=== PATIENT | male | born 1930 | race Caucasian/White ===

== ENCOUNTER 2016-05-17 09:01 | Observation (INO) | payer MEDICARE, OTHER ==
[~2016-05-17] VITALS: Ht 170.2 cm; Wt 94.8 kg
[~2016-05-17 09:01] MED LIST: BICA50TA4 PO; CLOP75TA28 PO; DILT360C30 PO; HYDR25TA4 PO; LEVO500T69 PO; MTF500T PO; MTP50T PO; POTA8CAP9 PO; SIMV40TA4 PO; TAMS0.4C9 PO; VLS80C PO
--- OUTSIDE RECORDS SUMMARY | 2016-05-17 09:09 | XMS REPORT | Continuity of Care Document ---
Author Author [facility] Organization [facility] Address Unknown Phone Unavailable Support Name Relationship Address Phone RADHA MONDRAGON MD Caregiver [phone] [place] [address] RILEY STEWART Next Of Kin [address] [place], [place] [id number] Insurance Providers Payer Name Policy Number Subscriber Name Relationship [employer] [id number] Maile Stewart 18 Self / Same As Patient Comm Crossover Enter Ins Name [id number] Maile Stewart 18 Self / Same As Patient Advance Directives Directive Response Recorded Date/Time Advance Directives Yes 06/05/14 2:43pm Health Care Power of Assistant Shift Supervisor No 06/05/14 2:43pm Organ Donor No 06/05/14 2:43pm Resuscitation Status Full Code 06/05/14 2:43pm Problems No known problems or medical conditions. Medications Medication Dose Route Sig Days/Qty Instructions Order Date Discontinued Date Status Diltiazem HCl (Tiazac) 360 Mg PO DAILY 10/06/13 Active Potassium Chloride 8 Meq PO DAILY 10/06/13 Active Valsartan 160 Mg PO DAILY 10/06/13 Active Simvastatin 20 Mg PO BEDTIME 10/06/13 Active Hydrochlorothiazide 50 Mg PO DAILY 10/06/13 Active Metoprolol Tartrate (Lopressor) 50 Mg PO TWICE A DAY 10/06/13 Active Clopidogrel Bisulfate 75 Mg PO DAILY 10/06/13 Active Metformin HCl (Glucophage) 500 Mg PO TWICE A DAY WITH MEALS 10/06/13 Active Levofloxacin 1 Each PO DAILY 10 Qty 10/06/13 Active Social History Social History Problem Response Recorded Date/Time Alcohol Use Denies Use 10/06/2013 5:07pm Recreational Drug Use No 10/06/2013 5:07pm Hospital Discharge Instructions No hospital discharge instructions. Plan of Care No plan of care. Functional Status No functional status results. Allergies, Adverse Reactions, Alerts Allergen Type Severity Reaction Status Last Updated Codeine Allergy Unknown Active 11/12/05 Immunizations No immunization records. Vital Signs Acute Vital Signs Vital Response Date/Time Height (Feet) 5 feet Height (Inches) 7.00 inches Height (Calculated Centimeters) 170.802429 cm Weight (Pounds) 215 pounds Weight (Calculated Grams) 85311.361 gm Weight (Calculated Kilograms) 97.586591 kilograms Calculated BMI 33.67 Results Laboratory Results Test Name Result Units Flags Reference Collection Date/Time Result Date/ Time Comments White Blood Count 8.7 10^3/uL 4.3-11.0 06/04/2014 10:am 06/04/2014 10 :19am Red Blood Count 4.11 10^6/uL L 4.35-5.85 06/04/2014 10:06/04/2014 10 :19am Hemoglobin 12.2 G/DL L 13.3-17.7 06/04/2014 10:06/04/2014 10:19am Hematocrit 35 % L 40-54 06/04/2014 10:06/04/2014 10:19am Mean Corpuscular Volume 85 FL 80-99 06/04/2014 10:06/04/2014 10: 19am Mean Corpuscular Hemoglobin 30 PG 25-34 06/04/2014 10:06/04/2014 10:19am Mean Corpuscular Hemoglobin Concent 35 G/DL 32-36 06/04/2014 10: 10:19am Red Cell Distribution Width 13.4 % 10.0-14.5 06/04/2014 10:2014 10:19am Platelet Count 224 10^3/uL 130-400 06/04/2014 10:06/04/2014 10: 19am Mean Platelet Volume 9.2 FL 7.4-10.4 06/04/2014 10:06/04/2014 10: 19am Neutrophils (%) (Auto) 62 % 42-75 06/04/2014 10:06/04/2014 10: 19am Lymphocytes (%) (Auto) 25 % 12-44 06/04/2014 10:06/04/2014 10: 19am Monocytes (%) (Auto) 10 % 0-12 06/04/2014 10:06/04/2014 10:19am Eosinophils (%) (Auto) 3 % 0-10 06/04/2014 10:06/04/2014 10:19am Basophils (%) (Auto) 0 % 0-10 06/04/2014 10:06/04/2014 10:19am Neutrophils # (Auto) 5.4 X 10^3 1.8-7.8 06/04/2014 10:06/04/2014 10:19am Lymphocytes # (Auto) 2.2 X 10^3 1.0-4.0 06/04/2014 10:06/04/2014 10:19am Monocytes # (Auto) 0.9 X 10^3 0.0-1.0 06/04/2014 10:06/04/2014 10: 19am Eosinophils # (Auto) 0.2 10^3/uL 0.0-0.3 06/04/2014 10:06/04/2014 10:19am Basophils # (Auto) 0.0 10^3/uL 0.0-0.1 06/04/2014 10:06/04/2014 10 :19am Sodium Level 137 MMOL/L 135-145 06/04/2014 10:06/04/2014 10:47am Potassium Level 4.1 MMOL/L 3.6-5.0 06/04/2014 10:06/04/2014 10: 47am Chloride Level 103 MMOL/L 98-107 06/04/2014 10:06/04/2014 10:47am Carbon Dioxide Level 25 MMOL/L 21-32 06/04/2014 10:1306/04/2014 10: 47am Blood Urea Nitrogen 19 MG/DL H 7-18 06/04/2014 10:06/04/2014 10: 47am Creatinine 0.83 MG/DL 0.60-1.30 06/04/2014 10:06/04/2014 10:47am BUN/Creatinine Ratio 23 06/04/2014 10:06/04/2014 10:47am Estimat Glomerular Filtration Rate > 60 06/04/2014 10:2014 10:47am GFR INTERPRETIVE DATA UNITS FOR ESTIMATED GFR (eGFR): mL/min/1.73 M2 REFERENCE RANGE FOR ESTIMATED GFR (eGFR) eGFR NORMAL eGFR >60 MODERATELY DECREASED eGFR 30-59 SEVERLY DECREASED eGFR 15-29 KIDNEY FAILURE <15 (OR DIALYSIS) Glucose Level 135 MG/DL H 70-105 06/04/2014 10:13am 06/04/2014 10:47am Calcium Level 9.7 MG/DL 8.5-10.1 06/04/2014 10:1306/04/2014 10:47am Total Bilirubin 0.7 MG/DL 0.1-1.0 06/04/2014 10:13am 06/04/2014 10: 47am Alkaline Phosphatase 79 U/L 40-136 06/04/2014 10:13am 06/04/2014 10: 47am Aspartate Amino Transf (AST/SGOT) 13 U/L 5-34 06/04/2014 10:13am 2014 10:47am Alanine Aminotransferase (ALT/SGPT) 13 U/L 0-55 06/04/2014 10:13am 01/2015 10:47am Total Protein 6.9 G/DL 6.4-8.2 06/04/2014 10:13am 06/04/2014 10:47am Albumin 4.3 G/DL 3.2-4.5 06/04/2014 10:13am 06/04/2014 10:47am Procedures No known history of procedures. Encounters Encounter Location Date/Time Registered Clinic [facility] 06/05/14 5:58am Discharged Recurring [facility] 06/04/14 9:59am
[2016-05-17 09:30] LABS: BASOPHILS % (AUTO) 1 % (0-10); EOSINOPHILS # (AUTO) 0.4 10^3/uL (0.0-0.3); EOSINOPHILS % (AUTO) 6 % (0-10); LYMPHOCYTES # (AUTO) 1.4 X 10^3 (1.0-4.0); LYMPHOCYTES % (AUTO) 21 % (12-44); MEAN CORPUSCULAR HEMOGLOBIN 30 PG (25-34); MEAN CORPUSCULAR HGB CONC 35 G/DL (32-36); MEAN CORPUSCULAR VOLUME 84 FL (80-99); MEAN PLATELET VOLUME 9.8 FL (7.4-10.4); MONOCYTES # (AUTO) 0.6 X 10^3 (0.0-1.0); MONOCYTES % (AUTO) 9 % (0-12); NEUTROPHILS # (AUTO) 4.2 X 10^3 (1.8-7.8); NEUTROPHILS % (AUTO) 64 % (42-75); PLATELET COUNT 171 10^3/uL (130-400); RED BLOOD COUNT 4.36 10^6/uL (4.35-5.85); RED CELL DISTRIBUTION WIDTH 13.3 % (10.0-14.5); WHITE BLOOD COUNT 6.6 10^3/uL (4.3-11.0)
--- NOTE | 2016-05-17 09:32 | Diagnostic Imaging Report ---
INDICATION: Left-sided weakness. Portable chest 9:29 AM. There are postop changes from a median sternotomy. There is calcified granuloma in the right midlung. Heart size and pulmonary vascularity are normal. Lungs are clear. There are no effusions or pneumothoraces. IMPRESSION: Postsurgical changes in the chest. There are no acute abnormalities seen. Dictated by: Dictated on workstation # [id number]
--- NOTE | 2016-05-17 09:34 | Diagnostic Imaging Report ---
Indication: Altered mental status CT head without contrast There is decreased density in the periventricular white matter consistent chronic small vessel ischemic change. There are also several old lacunar infarcts. There are no masses or hemorrhages. There are no extra-axial fluid collections. 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 There is no CT evidence for an acute infarct. Dictated by: Dictated on workstation # [id number]
[2016-05-17 09:35] VITALS: BP 138/98
[2016-05-17 09:41] LABS: INR 1.1 (0.8-1.4); PROTHROMBIN TIME PATIENT 13.4 SEC (12.2-14.7)
[2016-05-17 09:50] LABS: ALANINE AMINOTRANSFERASE 16 U/L (0-55); ALBUMIN 3.8 G/DL (3.2-4.5); ANION GAP 8 MMOL/L (5-14); ASPARTATE AMINO TRANSFERASE 13 U/L (5-34); BILIRUBIN,TOTAL 0.8 MG/DL (0.1-1.0); BLOOD UREA NITROGEN 26 MG/DL (7-18); BUN/CREATININE RATIO 28; CALCIUM 9.1 MG/DL (8.5-10.1); CARBON DIOXIDE 25 MMOL/L (21-32); CHLORIDE 105 MMOL/L (98-107); CREATININE SERUM 0.94 MG/DL (0.60-1.30); GFR ESTIMATED > 60; GLUCOSE 118 MG/DL (70-105); POTASSIUM 3.7 MMOL/L (3.6-5.0); SODIUM 138 MMOL/L (135-145); TOTAL PROTEIN 5.7 G/DL (6.4-8.2)
[2016-05-17 09:56] LABS: TROPONIN I < 0.30 NG/ML (<0.30)
[2016-05-17 11:48] LABS: BILIRUBIN,URINE NEGATIVE (NEGATIVE); KETONES,URINE NEGATIVE (NEGATIVE); LEUKOCYTE ESTERASE ,URINE NEGATIVE (NEGATIVE); NITRITE,URINE NEGATIVE (NEGATIVE); PH,URINE 7 (5-9); PROTEIN,URINE 1+ (NEGATIVE); UROBILINOGEN,URINE NORMAL (NORMAL)
[2016-05-17 12:02] LABS: SQUAMOUS EPITHELIAL CELL,UR 0-2 /HPF
[2016-05-17] MEDS ORDERED: ASPIRIN 325 MG (5 GR) TABLET PO ONE (13:00)
[2016-05-17] MEDS ORDERED: CLOPIDOGREL 75 MG (PLAVIX) TABLET PO ONE (14:00)
--- NOTE | 2016-05-17 14:15 | ED Neurological Problem ---
General Chief Complaint: Neuro-Stroke Like Symptoms Stated Complaint: LEFT SIDE WEAKNESS Nursing Triage Note: Daughter noticed her father leaning to the left side while walking this morning around 0830 this morning. Pt states he noticed facial drooping around 0530 this morning. Patient stays with her father. Last night well time was "sometime" last night. Nursing Sepsis Screen: No Definite Risk Source: patient, family, EMS Exam Limitations: clinical condition History of Present Illness Time seen by provider: 09:04 Initial Comments This 85-year-old gentleman presents to the emergency room via EMS with left- sided facial droop and weakness. His daughter reports noticing the deficits when he was walking out of the bathroom this morning around 08:00. Last known well time was last night at 21:00. He is well beyond the TPA treatment window and TPA was not considered. His daughter stated he was leaning to the left and dangling his left arm. He was repeating "it hurts" but cannot specify what hurt. She tested his left life skills educator which seemed weak and she reports his left foot seemed to droop/dragged. Patient is rather confused and is a poor historian. Patient had a recent fall on his bottom while getting out of the car. There was no apparent injury. EMS reports the facial symptoms resolved prior to their arrival to the home. He did remain disoriented for EMS. Patient does not take any blood thinners aside from a full aspirin daily. His recent fall was on Tuesday. Family reports his degree of confusion and forgetfulness is worse than they have ever seen in the past. Fingerstick blood sugar by EMS was 148. Patient's PCP is Dr. Us in [facility]. He was brought here from [facility] because of concern for stroke and availability of TPA. Allergies and Home Medications Allergies Coded Allergies: codeine (Verified Allergy, Unknown, 11/12/05) Home Medications Aspirin 325 Mg Tablet.dr 325 MG PO DAILY (Reported) Cholecalciferol (Vitamin D3) 5,000 Unit Capsule 10,000 UNIT PO DAILY (Reported) Citalopram Hydrobromide 20 Mg Tablet 20 MG PO DAILY (Reported) Ferrous Sulfate 325 Mg Tablet 325 MG PO DAILY (Reported) Hydrochlorothiazide 25 Mg Tablet 25 MG PO DAILY (Reported) Pantoprazole Sodium 40 Mg Tablet.dr 40 MG PO DAILY (Reported) Simvastatin 40 Mg Tablet 40 MG PO HS (Reported) Sucralfate 1 Gm Tablet 1 GM PO ACHS PRN PRN ACID REFLUX (Reported) Valsartan 160 Mg Tablet 160 MG PO DAILY (Reported) Constitutional: no symptoms reported Eyes: No Symptoms Reported Ears, Nose, Mouth, Throat: see HPI Respiratory: no symptoms reported Cardiovascular: no symptoms reported Gastrointestinal: no symptoms reported Genitourinary: no symptoms reported Musculoskeletal: see HPI Skin: no symptoms reported Psychiatric/Neurological: See HPI Endocrine: No Symptoms Reported Past [id number]-Ltzgkv Hx Patient Social History Alcohol Use: Past History Recreational Drug Use: No Smoking Status: Never a Smoker Recent Foreign Travel: No Contact w/Someone Who Travel: No Recent Infectious Disease Expo: No Recent Hopitalizations: No Physical Abuse Screen: No Sexual Abuse: No Surgeries HX Surgeries: Yes Respiratory Hx Respiratory Disorders: No Cardiovascular Hx Cardiac Disorders: Yes Neurological Hx Neurological Disorders: Yes Neurological Disorders: Stroke Genitourinary Hx Genitourinary Disorders: Yes Genitourinary Disorders: Prostate Problems Gastrointestinal Hx Gastrointestinal Disorders: Yes Gastrointestinal Disorders: Gastrointestinal Bleed, Diverticulosis (with bleeding diverticulitis) Musculoskeletal Hx Musculoskeletal Disorders: No Endocrine Hx Endocrine Disorders: Yes Endocrine Disorders: Diabetes, Non-Insulin dep HEENT HX ENT Disorders: No Cancer Hx Cancer: Yes Cancer: Prostate Psychosocial Hx Psychiatric Problems: No Integumentary HX Skin/Integumentary Disorder: No Physical Exam Vital Signs Vital Sign - Last 12Hours 05/17/16 09:30 Temp 97.5 Pulse 70 Resp 16 B/P 138/98 Pulse Ox 98 Capillary Refill : Less Than 3 Seconds General Appearance: WD/WN no apparent distress HEENT: PERRL/EOMI normal ENT inspection pharynx normal Neck: normal inspection Respiratory: lungs clear normal breath sounds no respiratory distress no accessory muscle use Cardiovascular: regular rate, rhythm no edema no murmur Gastrointestinal: normal bowel sounds non tender soft Extremities: normal inspection no pedal edema Neurologic/Psychiatric: partner manager II-XII nml as tested no motor/sensory deficits alert normal mood/affect other (rather confused and disoriented) Crainal Nerves: normal hearing normal speech PERRL Coordination/Gait: normal finger to nose normal gait Motor/Sensory: no motor deficit no sensory deficit Skin: normal color warm/dry Stroke Onset of Symptoms Date of Onset of Symptoms: May 17, 2016 Onset of Symptoms: Yes NIH Stroke Scale Assessment Level of Consciousness: 0=Alert Level of Consciousness-Questio: 2=Answer neither question LOC Commands: 0=Performs both tasks Gaze: 0=Normal Visual Villegas: 0=No visual loss Facial Movement (Facial Paresi: 0=Normal symmetrical mnt Motor Function-Arms Right: 0=No drift Motor Function-Arms Left: 0=No drift Motor Function-Legs Right: 0=No drift Motor Function-Legs Left: 1=Drift Limb Ataxia: 1=Present in one limb Sensory: 0=Normal:no loss Best Language: 0=No aphasia Dysarthria: 0=Normal Extinction & Inattention: 0=No abnormality NIH Stroke Scale Score: 4 Stroke Thrombolytic Exclusion Age 18 or Over: Yes History of CVA: Yes Severe Hypertension: No GI or Bleed: No Subarachnoid Hemorrhage: No Intracranial Neoplasm/Aneurysm: No Puncture of Non-Compressible V: No Recent CPR: No Diabetic Hemorrhagic Retinopat: No Organ Biopsy: No Recent Obstetric Delivery: No Significant Hepatic Dysfunctio: No NIH Stoke Scale >22: No Improving Symptoms: No Progress/Results/Core Measures Results/Orders Lab Results Laboratory Tests Test 05/17/16 09:15 05/17/16 11:30 Range/Units Activated Partial Thromboplast Time 28 24-35 SEC Alanine Aminotransferase (ALT/SGPT) 16 0-55 U/L Albumin 3.8 3.2-4.5 G/DL Alkaline Phosphatase 79 40-136 U/L Anion Gap 8 5-14 MMOL/L Aspartate Amino Transf (AST/SGOT) 13 5-34 U/L BUN/Creatinine Ratio 28 Basophils # (Auto) 0.0 0.0-0.1 10^3/uL Basophils (%) (Auto) 1 0-10 % Blood Urea Nitrogen 26 H 7-18 MG/DL Calcium Level 9.1 8.5-10.1 MG/DL Carbon Dioxide Level 25 21-32 MMOL/L Chloride Level 105 98-107 MMOL/L Creatinine 0.94 0.60-1.30 MG/DL D-Dimer 0.76 H 0.00-0.49 UG/ML Eosinophils # (Auto) 0.4 H 0.0-0.3 10^3/uL Eosinophils (%) (Auto) 6 0-10 % Estimat Glomerular Filtration Rate > 60 Glucose Level 118 H 70-105 MG/DL Hematocrit 37 L 40-54 % Hemoglobin 12.9 L 13.3-17.7 G/DL INR Comment 1.1 0.8-1.4 Lymphocytes # (Auto) 1.4 1.0-4.0 X 10^3 Lymphocytes (%) (Auto) 21 12-44 % Mean Corpuscular Hemoglobin 30 25-34 PG Mean Corpuscular Hemoglobin Concent 35 32-36 G/DL Mean Corpuscular Volume 84 80-99 FL Mean Platelet Volume 9.8 7.4-10.4 FL Monocytes # (Auto) 0.6 0.0-1.0 X 10^3 Monocytes (%) (Auto) 9 0-12 % Neutrophils # (Auto) 4.2 1.8-7.8 X 10^3 Neutrophils (%) (Auto) 64 42-75 % Platelet Count 171 130-400 10^3/uL Potassium Level 3.7 3.6-5.0 MMOL/L Prothrombin Time 13.4 12.2-14.7 SEC Red Blood Count 4.36 4.35-5.85 10^6/uL Red Cell Distribution Width 13.3 10.0-14.5 % Sodium Level 138 135-145 MMOL/L Total Bilirubin 0.8 0.1-1.0 MG/DL Total Protein 5.7 L 6.4-8.2 G/DL Troponin I < 0.30 <0.30 NG/ML White Blood Count 6.6 4.3-11.0 10^3/uL Urine Bacteria NEGATIVE /HPF Urine Bilirubin NEGATIVE NEGATIVE Urine Casts PRESENT /LPF Urine Clarity CLEAR Urine Color YELLOW Urine Crystals NONE /LPF Urine Culture Indicated NO Urine Glucose (UA) NEGATIVE NEGATIVE Urine Hyaline Casts 5-10 H /LPF Urine Ketones NEGATIVE NEGATIVE Urine Leukocyte Esterase NEGATIVE NEGATIVE Urine Mucus MODERATE H /LPF Urine Nitrite NEGATIVE NEGATIVE Urine Protein 1+ H NEGATIVE Urine RBC NONE /HPF Urine RBC (Auto) NEGATIVE NEGATIVE Urine Specific [place] 1.010 L 1.016-1.022 Urine Squamous Epithelial Cells 0-2 /HPF Urine Urobilinogen NORMAL NORMAL MG/DL Urine WBC NONE /HPF Urine pH 7 5-9 My Orders Orders-ANDRY MICHAELS MD Cbc With Automated Diff (05/17/16 09:13) Protime With Inr (05/17/16 09:13) Partial Thromboplastin Time (05/17/16 09:13) Comprehensive Metabolic Panel (05/17/16 09:13) Fibrin Degradation Products (05/17/16 09:13) Troponin I (05/17/16 09:13) Ua Culture If Indicated (05/17/16 09:13) Chest 1 View, Ap/Pa Only (05/17/16 09:13) Ekg Tracing (05/17/16 09:13) Nothing By Mouth (05/17/16 Lunch) Accucheck Stat ONCE (05/17/16 09:13) Saline Lock/Iv-Start (05/17/16 09:13) Saline Lock/Iv-Start (05/17/16 09:13) Vital Signs-Stroke Q1H (05/17/16 09:13) Ct Head Wo-R/O Stroke (05/17/16 09:13) O2 (05/17/16 09:13) Intake & Output 06,14,22 (05/17/16 09:13) Monitor-Rhythm Ecg Trace Only (05/17/16 09:13) Dysphagia Screening Tool (05/17/16 09:13) Aspirin Tablet (Aspirin Tablet) (05/17/16 13:00) Clopidogrel Tablet (Plavix Tablet) (05/17/16 14:00) Vital Signs/I&O Vital Sign - Last 12Hours 05/17/16 05/17/16 05/17/16 09:30 09:35 14:12 Temp 97.5 97.5 Pulse 70 70 Resp 16 16 B/P 138/98 138/98 Pulse Ox 98 98 Blood Pressure Mean: 111 Progress Note : Time: 14:14 Progress Note Patient had an initial NIH stroke score of 4 because of left-sided weakness and discoordination. Prior to admission, however, the weakness on the left side had resolved. I also got him up to ambulate and his ambulation was near baseline. He did remain rather confused and disoriented. There was debate about adding Plavix to the aspirin he is presently taking. Because of GI bleed in the past few months related to diverticulitis, Plavix was not given. ECG Initial ECG Impression Date: May 17, 2016 Initial ECG Impression Time: 09:06 Initial ECG Rate: 69 Initial ECG Rhythm: Normal Sinus Initial ECG Intervals: Normal Initial ECG Impression: Normal Comment Normal sinus rhythm with no ST elevation or depression. No clear abnormal intervals or axis deviation. Similar to prior. Diagnostic Imaging Diagonstic Imaging: CT Plain Films/CT/US/NM/MRI: head Comments NAME: MAILE STEWART [facility] REC#: [id number] PT STATUS: REG ER : 1930 PHYSICIAN: ANDRY MICHAELS MD ADMIT DATE: 05/17/16/ER Signed Date of Exam: 05/17/16 CT HEAD WO-R/O STROKE Indication: Altered mental status CT head without contrast There is decreased density in the periventricular white matter consistent chronic small vessel ischemic change. There are also several old lacunar infarcts. There are no masses or hemorrhages. There are no extra-axial fluid collections. 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 There is no CT evidence for an acute infarct. Dictated by: Dictated on workstation # [id number] Dict: 05/17/1631 Trans: 05/17/16 0932 TB [id number] Interpreted by: ELA SIERRA Electronically signed by:ELA SIERRA 05/17/16 0934 Diagonstic Imaging: Xray Plain Films/CT/US/NM/MRI: chest Comments NAME: MAILE STEWART [facility] REC#: [id number] PT STATUS: REG ER : 1930 PHYSICIAN: ANDRY MICHAELS MD ADMIT DATE: 05/17/16/ER Signed Date of Exam: 05/17/16 CHEST 1 VIEW, AP/PA ONLY INDICATION: Left-sided weakness. Portable chest 9:29 AM. There are postop changes from a median sternotomy. There is calcified granuloma in the right midlung. Heart size and pulmonary vascularity are normal. Lungs are clear. There are no effusions or pneumothoraces. IMPRESSION: Postsurgical changes in the chest. There are no acute abnormalities seen. Dictated by: Dictated on workstation # [id number] Dict: 05/17/16929 Trans: 05/17/161123 RUSSELL [id number] Interpreted by: ELA SIERRA Electronically signed by:ELA SIERRA 05/17/16 1126 Departure Communication Time/Spoke to Admitting Phy: 13:30 Communication [place] Impression Impression: Primary Impression: Confusion Additional Impression: Left-sided weakness Disposition: ADMITTED INPATIENT Condition: Improved Decision to Admit Reason: Admit from ER (General) Decision to Admit/Date: May 17, 2016 Time/Decision to Admit Time: 13:30 Departure-Patient Inst. Referrals: NO,LOCAL PHYSICIAN (PCP/Family) Primary Care Physician ANDRY MICHAELS MD May 17, 2016 14:15
[2016-05-17 14:30] VITALS: BP 148/71
[2016-05-17] MEDS ORDERED: MILK OF MAGNESIA 400 MG/5 ML 30 ML UDC NG PRN (15:30)
[2016-05-17] MEDS ORDERED: ONDANSETRON 4 MG/2 ML (SDV) Z0FRAN IV PRN (15:30)
[2016-05-17] MEDS ORDERED: BISACODYL 10 MG SUPP (DULCOLAX) PR PRN (15:30)
[2016-05-17] MEDS ORDERED: MILK OF MAGNESIA 400 MG/5 ML 30 ML UDC PO PRN (15:30)
[2016-05-17] MEDS ORDERED: VALS160T28 PO (15:35)
[2016-05-17] MEDS ORDERED: PANT40TA2 PO (15:35)
[2016-05-17] MEDS ORDERED: HYDR25TA4 PO (15:35)
[2016-05-17] MEDS ORDERED: SUCR1TAB36 PO (15:35)
[2016-05-17] MEDS ORDERED: CITA20TA7 PO (15:35)
[2016-05-17] MEDS ORDERED: SIMV40TA4 PO (15:35)
[2016-05-17] MEDS ORDERED: ASPI325T32 PO (15:35)
[2016-05-17] MEDS ORDERED: FERR-74 PO (15:35)
[2016-05-17] MEDS ORDERED: CHOL5000 PO (15:35)
[2016-05-17 16:20] VITALS: BP 145/81
[2016-05-17 20:00] VITALS: BP 124/71
[2016-05-17] MEDS: DOCUSATE SODIUM 100 MG (COLACE) CAP PO SCH (20:22)
[2016-05-17] MEDS: FAMOTIDINE 20 MG (PEPCID) TABLET PO SCH (20:22)
[2016-05-18 00:15] VITALS: BP 137/84
[2016-05-18 04:00] VITALS: BP 144/64
[2016-05-18 06:01] LABS: CHOLESTEROL 152 MG/DL (< 200); DIRECT LDL 92 MG/DL (1-129); TRIGLYCERIDES 158 MG/DL (<150); VLDL CHOLESTEROL 32 MG/DL (5-40)
[2016-05-18 08:00] VITALS: BP 170/77
--- NOTE | 2016-05-18 10:54 | Diagnostic Imaging Report ---
PROCEDURE: MR imaging of the brain without contrast. TECHNIQUE: Multiplanar/multisequence MR imaging of the brain was performed without contrast. INDICATION: Altered mental status, left-sided weakness. COMPARISON: There are no previous MRI examinations available for comparison. The CT head exam performed on 05/17/2016 failed to show any sign of an acute intracranial abnormality. FINDINGS: On this exam, there is no mass, shift of the midline, or hemorrhage to indicate an acute abnormality. Furthermore, there is no abnormal signal arising from the brain on the diffusion series to indicate an area of acute ischemia. The ventricles are prominent but similar to the CT head exam. The FLAIR series does show focal and diffuse areas of increased signal in the periventricular white matter bilaterally. These findings are nonspecific but may be secondary to encephalomalacia from microvascular ischemia. There is also cortical atrophy present. The degree of atrophy is consistent with the patient's age. The sella is not enlarged and the expected carotid flow voids are evident bilaterally. The sinuses are generally clear. The orbits are symmetrical and within normal limits. The 7th and 8th nerve complexes are unremarkable. IMPRESSION: 1. There is no evidence for an acute intracranial abnormality. There is no sign of a mass lesion either. 2. There are senescent changes including cortical atrophy and periventricular encephalomalacia. Dictated by: Dictated on workstation # [id number]
[2016-05-18] MEDS: DOCUSATE SODIUM 100 MG (COLACE) CAP PO SCH ×2 (11:20→20:59)
[2016-05-18] MEDS: ASPIRIN E.C. 325 MG (ECOTRIN) TABLET PO SCH (11:21)
[2016-05-18] MEDS: FAMOTIDINE 20 MG (PEPCID) TABLET PO SCH ×2 (11:21→20:59)
[2016-05-18 12:00] VITALS: BP 175/74
--- NOTE | 2016-05-18 12:14 | History & Physical-Hospitalist ---
HPI History of Present Illness: HPI/Chief Complaint The patient is an 85-year-old white male. He was brought to the emergency room by ambulance from the adjacent [place] neighborhood. He was brought here out of concern for a left-sided facial droop and left-sided weakness. His daughter noted this at about 0800 hours on his arising. His last known normal time was 2100 hours the night before this put him well beyond any potential use of TPA. The daughter stated that she observed him to be leaning to the left and dangling his left arm. 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 She was therefore well versed in the symptoms. She particularly described his left subacute nurse to be weak and that he seemed to have a foot drop and dragging motion of his left leg. He is very hard of hearing and this is not new. The daughter and her reported that he had had physical therapy with improvement at another facility and this ended about Thanksgiving of 16. He also had had a recent fall but suffered no apparent injury. he is not on anticoagulant therapy other than a 325 mg aspirin daily. The EMS crew knew him and thought him to be disoriented. He had previously been on Plavix but apparently suffered GI bleeding from diverticuli. Source: patient, family Exam Limitations: no limitations Date Seen 05/18/16 Attending Physician Georges Ivey MD PCP No,Local Physician Referring Physician Date of Admission May 17, 2016 at 14:25 Home Medications & Allergies Home Medications Reviewed patient Home Medication Reconciliation Form Allergies Coded Allergies: codeine (Verified Allergy, Unknown, 11/12/05) Past Umbpfoz-Qkajyd-Lviuda Hx Patient Social History Alcohol Use: Past History Recreational Drug Use: No Smoking Status: Never a Smoker Physical Abuse Screen: No Sexual Abuse: No Recent Foreign Travel: No Contact w/other who traveled: No Recent Hopitalizations: No Recent Infectious Disease Expo: No Immunizations Up To Date Date of Pneumonia Vaccine: Nov 25, 2015 Date of Influenza Vaccine: Mar 12, 2016 Seasonal Allergies Seasonal Allergies: No Surgeries HX Surgeries: Yes Respiratory Hx Respiratory Disorders: No Cardiovascular Hx Cardiovascular Disorders: Yes Neurological Hx Neurological Disorders: Yes Neurological Disorders: Stroke Reproductive System Sexually Transmitted Disease: No HIV/AIDS: No Genitourinary Hx Genitourinary Disorders: Yes Genitourinary Disorders: Prostate Problems Gastrointestinal Hx Gastrointestinal Disorders: Yes Gastrointestinal Disorders: Gastrointestinal Bleed, Diverticulosis (with bleeding diverticulitis) Musculoskeletal Hx Musculoskeletal Disorders: No Endocrine Hx Endocrine Disorders: Yes Endocrine Disorders: Diabetes, Non-Insulin dep HEENT HX ENT Disorders: No Hearing Impairment: Hard of Hearing, Hearing Aide Right, Hearing Aide Left Cancer Hx Cancer: Yes Cancer: Prostate Psychosocial Hx Psychiatric Problems: No Integumentary HX Skin/Integumentary Disorder: No Review of Systems Constitutional: see HPI weakness EENTM: hearing loss Respiratory: no symptoms reported Cardiovascular: no symptoms reported Gastrointestinal: no symptoms reported Musculoskeletal: muscle weakness (left sided) Skin: no symptoms reported Psychiatric/Neurological: No Symptoms Reported Physical Exam Physical Exam Vital Signs Vital Sign - Last 12Hours 05/17/16 05/17/16 09:30 15:15 Temp 97.5 Pulse 70 Resp 16 B/P 138/98 Pulse Ox 98 O2 Delivery Room Air Capillary Refill : Less Than 3 Seconds General Appearance: No Apparent Distress WD/WN Eyes: Right Eye Other (apparent lid droop) HEENT: Normal ENT Inspection Neck: Full Range of Motion Normal Inspection Non Tender Supple Carotid Bruit Respiratory: Chest Non Tender Lungs Clear Normal Breath Sounds No Accessory Muscle Use No Respiratory Distress Cardiovascular: Regular Rate, Rhythm No Edema No Gallop No JVD No Murmur Normal Peripheral Pulses Gastrointestinal: Normal Bowel Sounds No Organomegaly No Pulsatile Mass Non Tender Soft Back: Normal Inspection No CVA Tenderness No Vertebral Tenderness Extremity: Normal Capillary Refill Normal Inspection Non Tender No Calf Tenderness No Pedal Edema Neurologic/Psychiatric: Alert Oriented x3 Comments The left arm exhibited no apparent weakness to confrontation on biceps and triceps as compared to the right. He was able to complete finger to thumb alternating movements bilaterally although impaired by arthritic changes in his fingers. Cranial nerves appeared intact. There appeared to be a modest droop of the right upper lid although this suggested entropion. The pupils were equal. Speech was normal. There was no facial droop. Smile demonstrated elevation of the corners of the mouth bilaterally. The lower extremities revealed inability to straight leg lift off the bed on the left. The right appeared normal. He was able to dorsiflex the toes bilaterally. Results Results/Procedures Lab Assessment/Plan Admission Diagnosis 1.left-sided weakness and incoordination in the distribution of a previous CVA. 2.confusion reported at time of admission, this is not clear at the time of examination. Assessment and Plan Plan: PT and OT evaluation and treatment. Add Plavix to aspirin. Clinical Quality Measures DVT/VTE Risk/Contraindication: Risk Factor Score Per Nursin RFS Level Per Nursing on Admit: 2=Moderate Stroke: Date of last known well: May 17, 2016 GEORGES IVEY MD May 18, 2016 12:14 Date of last known well: May 17, 2016 GEORGES IVEY MD May 18, 2016 12:14
[2016-05-18] MEDS ORDERED: SUCRALFATE 1 GM (CARAFATE) TAB PO PRN (12:15)
[2016-05-18] MEDS: VALSARTAN 80 MG (DIOVAN) TAB PO SCH (12:29)
--- NOTE | 2016-05-18 15:50 | Physical Therapy Evaluation ---
PT Evaluation-General Medical Diagnosis Admission Date May 17, 2016 at 14:45 Medical Diagnosis: left sided weakness Onset Date: May 16, 2016 Therapy Diagnosis Therapy Diagnosis: debility/weakness Height/Weight Height (Feet): 5 Height (Inches): 7.00 Weight (Pounds): 209 Weight (Ounces): 0.0 Precautions Precautions/Isolations: Fall Prevention, Standard Precautions Referral Physician: Rom Reason for Referral: Evaluation/Treatment Medical History Pertinent Medical History: CVA (2015), DM Additional Medical History fall on Tuesday Current History daughter noticed confusion, left lean and facial droop and left LE lag Reviewed History: Yes Social History Home: Single Level Current Living Status: Other Family Entry Into Home: Stairs With Railing PT Steps Into Home: 2 Prior/Core FIM Prior Level of Function Functional [place] Measure 0=Not Assessed/NA 4=Minimal Assistance 1=Total Assistance 5=Supervision or Setup 2=Maximal Assistance 6=Modified [place] 3=Moderate Assistance 7=Complete [place] Bed Mobility: 6 Transfers (B,C,W/C) (FIM): 5 Gait: 5 uses FWW at home PT Evaluation-Current Subjective Patient agrees to PT. Family present. Pain Numeric Pain Scale: 0-No Pain Location: No Pain Reported Objective Patient Orientation: Confused Problem Solving: Fair ROM/Strength ROM Lower Extremities bilateral LE WFL Strenght Lower Extremities right hip flexion 4/5, knee flexion/extension 4/5, ankle dorsi/plantarflexion 4/ 5 left hip flexion 4-/5, knee flexion/extension 4-5/, ankle dorsi/plantarflexion 4 -/5 Integumentary/Posture Integumentary refer to nursing notes Bowel Incontinence: No Bladder Incontinence: No Posture slightly kyphotic Neuromuscular (Tone, Coordination, Reflexes) grossly intact Sensory Vision: Functional Hearing: Impaired Sensation Right Lower Extremit: Impaired Sensation Left Lower Extremity: Impaired Transfers Functional [place] Measure 0=Not Assessed/NA 4=Minimal Assistance 1=Total Assistance 5=Supervision or Setup 2=Maximal Assistance 6=Modified [place] 3=Moderate Assistance 7=Complete [place] Transfers (B, C, W/C) (FIM): 5 Scootin Rollin Supine to/from Sit: 5 Sit to/from Stand: 5 SBA for safety with gait belt in place Gait Mode of Locomotion: Walk Anticipated Mode of Locomotion: Walk Gait (FIM): 5 Distance (FIM): 3=150 ft Distance: 300' Gait Level of Assist: 5 Gait Persons Needed: 1 Gait Assistive Device: FWW Comments/Gait Description slight shuffle gait sequence; fatigues with distance Stairs Stairs (FIM): 1 #of Steps: 2 Level of Assist: 4 Assistive Device: Walker Balance Sitting Static: Normal Sitting Dynamic: Normal Standing Static: Normal Standing Dynamic: Normal Assessment/Needs 85 y.o. male, will benefit from short term skilled PT to address functional mobility to improve current LOF and to safely return to home with family and home health intervention (PT). Rehab Potential: Good PT Usp Goals Soap Press Feeder Goals PT Soap Press Feeder Goals Time Frame: May 25, 2016 Transfers (B,C,W/C) (FIM): 6 Gait (FIM): 5 Gait distance (FIM): 3=150 ft Distance: 350' Gait Level of Assist: 5 Gait Assistive Device: FWW PT Plan Problem List Problem List: Activity Tolerance, Functional Strength, Safety, Gait Treatment/Plan Treatment Plan: Continue Plan of Care Treatment Plan: Education, Functional Activity Boogie, Functional Strength, Gait , Safety, Therapeutic Exercise, Transfers Treatment Duration: May 25, 2016 # of days/week 5-6 Visits Per Week: 5-6 Pt/Family Agrees w/Plan: Yes Safety Risks/Education Patient Education: Safety Issues Teaching Recipient: Patient, Family Teaching Methods: Discussion Response to Teaching: Verbalize Understanding Discharge Recommendations Therapy D/C Recommendations: Physical Therapy Home Care Time/GCodes Time In: 1501 Time Out: 1511 Total Billed Treatment Time: 10 Total Billed Treatment 1 visit EVHigh 10 min G Codes Necessary: Yes PT/OT Therapy GCodes Therapy Functional Limitation: Physical Therapy Test(s)/Tool used to determine: Level of Assistance Scale Functional Limitation-Current Charge Code: MOBCUR Modifier: CJ Functional Limitation-Goal Charge Code: MOBGOAL Modifier: ARJUN ERWIN PT May 18, 2016 15:50
[2016-05-18 16:50] VITALS: BP 179/79
--- NOTE | 2016-05-18 16:51 | Occupational Therapy Eval ---
OT Evaluation-General/PLF Medical Diagnosis Admission Date May 17, 2016 at 14:45 Medical Diagnosis: left sided weakness Onset Date: May 16, 2016 Therapy Diagnosis Therapy Diagnosis: Decreased ADL skills Height/Weight Height (Feet): 5 Height (Inches): 7.00 Weight (Pounds): 209 Weight (Ounces): 0.0 Precautions Precautions/Isolations: Fall Prevention, Standard Precautions Safety Interventions: Bed Exit Alarm, Reorient-PRN Referral Physician: Rom Referral Reason: Activity Tolerance, Self Care, Evaluation/Treatment, Strengthening/ROM Medical History Pertinent Medical History: CVA (2015), DM Additional Medical History prostate problems Current History Pt. awoke and was having left sided weakness. Family found him. Reviewed History: Yes Social History Home: Single Level Current Living Status: Other Family Entry Into Home: Stairs With Railing Steps Into Home: 2 ADL-Prior Level of Function ADL PLOF Comments Pt. lives with son and daughter in law. Daughter in law states that pt. was independent with most ADLs, including bathing and dressing after she would lay out his clothing for him. DME/Equipment: Bath Chair, Shower DME/Equipment Comments Pt. has a walker and wheelchair. Pt. had a stroke in December. Family states that he has had aphasia since then , but it is "worse" now. Drive Self: No OT Current Status Subjective No pain reported. Appearance Pt. very [place]. Will attempt to talk with therapist and with family, but only 50 % legible. Mental Status/Objective Patient Orientation: Person, Unable to Assess Current Hearing Aids: Yes Hand Dominance: Right Upper Extremity ROM Right- Pt. is able to flex shoulder to approximately 100 degrees. WFL in elbow , wrist, fingers. Left- Pt. is able to flex shoulder to approximately 80 degrees. WFL in all other joints. Upper Extremity Coordination Right- intact left- slightly delayed. Upper Extremity Strength Right- 4/5 throughout left- 3+/5 in shoulder 4/5 in elbow/wrist/fingers. ADL-Treatment Functional [place] Measure 0=Not Assessed/NA 4=Minimal Assistance 1=Total Assistance 5=Supervision or Setup 2=Maximal Assistance 6=Modified [place] 3=Moderate Assistance 7=Complete IndependenceIRFPAI Quality Coding Scale 6 Independent with activity with or without an assistive device 5 Patient requires set up or clean up by helper. Patient completes activity by themselves 4 Supervision or touching assist (CGA). [place] provide cues , steadying assist 3 The helper provides less than half the effort to complete the activity 2 The helper provides more than half the effort to complete the activity 1 Dependent. The helper does all the effort to complete an activity 7 Patient refused to complete or attempt activity 9 The patient did not perform the activity before the current illness or injury 88 Not attempted due to Medical conditions or safety concerns Lower Body Dressing (FIM): 3 (Pt. is able to doff socks and don them, but does struggle a bit to put left one on. Does this by bringing legs up to him.) Transfers (B, C, W/C) (FIM): 4 (Min assist to stand.) Pt. is up in li walking with PT. OT observed this until evaluation could be started. Noted that pt. seemed fatigued and required a rest break in hallway. Spoke with family in room regarding pt's previous level of ability. They state that they are interested in getting more therapy for him. All needs met in room after treatment. Education OT Patient Education: Correct positioning, Modified ADL techniques, Progress toward Goal/Update tx plan, Purpose of tx/functional activities, Reviewed precautions, Rehab process, Transfer techniques Teaching Recipient: Patient, Family Teaching Methods: Demonstration, Discussion Response to Teaching: Verbalize Understanding, Return Demonstration OT Short Term Goals Short Term Goals Time Frame: May 25, 2016 Eating(FIM): 5 Grooming(FIM): 5 Bathing(FIM): 4 Upper Body Dressing(FIM): 5 Lower Body Dressing(FIM): 4 Toileting(FIM): 4 Transfers (B,C,W/C) (FIM): 5 Toilet/Commode Transfer(FIM): 5 Shower Transfer(FIM): 4 Additional Short Term Goals: 1-Demonstrate ADL Tasks, 2-Verbalize Understanding , 3-ImproveStrength/Boogie 1=Demonstrate adherence to instructed precautions during ADL tasks. 2=Patient will verbalize/demonstrate understanding of assistive devices/ modifications for ADL. 3=Patient will improve strength/tolerance for activity to enable patient to perform ADL's. OT Alf Goals Audio Visual Aide Goals Time Frame: 06-01-16 Eating (FIM): 6 Grooming(FIM): 5 Bathing(FIM): 5 Upper Body Dressing(FIM): 5 Lower Body Dressing(FIM): 5 Toileting(FIM): 5 Transfers (B,C,W/C) (FIM): 5 Toilet/Commode Transfer(FIM): 5 Shower Transfer(FIM): 5 Additional Goals: 1-Demonstrate ADL Tasks, 2-Verbalize Understanding, 3- ImproveStrength/Boogie 1=Demonstrate adherence to instructed precautions during ADL tasks. 2=Patient will verbalize/demonstrate understanding of assistive devices/ modifications for ADL. 3=Patient will improve strength/tolerance for activity to enable patient to perform ADL's. OT Education/Plan Problem List/Assessment Assessment: Decreased Activ Tolerance, Impaired Bed Mobility, Impaired Funct Balance, Impaired I ADL's, Impaired Self-Care Skills, Restricted Funct UE ROM Discharge Recommendations Plan/Recommendations: Continue POC Therapy D/C Recommendations: Acute Rehab Treatment Plan/Plan of Care Treatment,Training & Education: Yes Patient would benefit from OT for education, treatment and training to promote independence in ADL's, mobility, safety and/or upper extremity function for ADL' s. Plan of Care: ADL Retraining, Functional Mobility, UE Funct Exercise/Act Treatment Duration: Jun 01, 2016 # of days/week 5-6 Visits Per Week: 10-12 Agreement: Yes Rehab Potential: Good Time/GCodes Start Time: 15:05 Stop Time: 15:20 Total Time Billed (hr/min): 15 Billed Treatment Time 1, EVmod complexity PT/OT Therapy GCodes Therapy Functional Limitation: Physical Therapy Test(s)/Tool used to determine: Level of Assistance Scale Functional Limitation-Current Charge Code: MOBCUR Modifier: CJ Functional Limitation-Goal Charge Code: MOBGOAL Modifier: SAQIB LOPEZ OT May 18, 2016 16:51
[2016-05-18 20:39] VITALS: BP 176/72
[2016-05-18] MEDS ORDERED: SIMvastatin 40 MG (ZOCOR) TAB PO SCH (21:00)
[2016-05-19] VITALS: BP 171/82
[2016-05-19 04:00] VITALS: BP 169/86
[2016-05-19 08:00] VITALS: BP 145/80
[2016-05-19] MEDS: DOCUSATE SODIUM 100 MG (COLACE) CAP PO SCH (08:52)
[2016-05-19] MEDS: ASPIRIN E.C. 325 MG (ECOTRIN) TABLET PO SCH (08:52)
[2016-05-19] MEDS: FAMOTIDINE 20 MG (PEPCID) TABLET PO SCH (08:53)
[2016-05-19] MEDS: VALSARTAN 80 MG (DIOVAN) TAB PO SCH (08:53)
[2016-05-19] MEDS ORDERED: ASPIRIN E.C. 325 MG (ECOTRIN) TABLET PO SCH (09:00)
[2016-05-19] MEDS ORDERED: CLOPIDOGREL 75 MG (PLAVIX) TABLET PO SCH (09:00)
[2016-05-19] MEDS ORDERED: HYDROCHLOROTHIAZIDE 25 MG (HCTZ) TAB PO SCH (09:00)
--- NOTE | 2016-05-19 10:25 | Discharge Summary-Hospitalist ---
Diagnosis/Chief Complaint Date of Admission May 17, 2016 at 14:45 Date of Discharge Admission Diagnosis 1.left-sided weakness and incoordination in the distribution of a previous CVA. 2.confusion reported at time of admission, this is not clear at the time of examination. Discharge Diagnosis 1.left-sided weakness and incoordination in the distribution of a previous CVA c /w extension of CVA. 2.confusion reported at time of admission, this is not clear at the time of examination. 3. Debility/Weakness 4. HLP 5. HTN Reason Hospital Visit/Course The patient is an 85-year-old white male. He was brought to the emergency room by ambulance from the adjacent [place] neighborhood. He was brought here out of concern for a left-sided facial droop and left-sided weakness. His daughter noted this at about 0800 hours on his arising. His last known normal time was 2100 hours the night before this put him well beyond any potential use of TPA. The daughter stated that she observed him to be leaning to the left and dangling his left arm he had had a CVA in the same distribution in December 2015. She was therefore well versed in the symptoms. She particularly described his left application spec to be weak and that he seemed to have a foot drop and dragging motion of his left leg. He is very hard of hearing and this is not new. The daughter and her reported that he had had physical therapy with improvement at another facility and this ended about Thanksgiving of 16. He also had had a recent fall but suffered no apparent injury he is not on anticoagulant therapy other than a 325 mg aspirin daily the EMS crew new him and thought him to be disoriented. He had previously been on Plavix but apparently suffered GI bleeding from diverticuli. Notes from 05/19/2016: heel breaster: RN states that pt previously had a stroke in December of 2015, but MRI did not reveal current stroke signs. Pt states that he does not wish to return to home environment and may require a care facility, and would benefit from in-patient rehab. Patient Interview: Pt states that he feels improved today, but still feels very weak. Dr. Carvajal informs pt that rehab with evaluate pt. Physical exam stable. Pt states that he had a BM last night. No fever, vital signs stable, pleasant, weak and, flat affect, poor recall noted Regular rate and rhythm, clear to auscultation bilaterally No edema but generalized weakness all extremities Plan: Rehab eval? SW consult Scribed by Cory Soni under the direct supervision of Dr. Carvajal. Hospital course: Patient had an uneventful hospital course he was admitted due to concern of extension his CVA which was consistent with symptoms and underwent a full workup on stroke protocol including PT/OT an MRI that didn't show any significant change but the symptoms were consistent with extension so he was meeting criteria for inpatient rehabilitation maintained on statin and aspirin therapy to help recover and eventually move either home or to a nursing facility depending on the port that his family can provide and overall was stable at time of discharge. Discharge Summary Discharge Physical Examination Allergies: Coded Allergies: codeine (Verified Allergy, Unknown, 11/12/05) Vitals & I&Os Vital Signs Date Time Temp Pulse Resp B/P Pulse Ox O2 Delivery O2 Flow Rate FiO2 05/19/16 08:00 97.7 77 22 145/80 96 Room Air Discharge Home Medications: Active Scripts Active Reported Ferrous Sulfate 325 Mg Tablet 325 Mg PO DAILY Vitamin D3 (Cholecalciferol (Vitamin D3)) 5,000 Unit Capsule 10,000 Unit PO DAILY Carafate (Sucralfate) 1 Gm Tablet 1 Gm PO ACHS PRN Citalopram HBr (Citalopram Hydrobromide) 20 Mg Tablet 20 Mg PO DAILY Protonix (Pantoprazole Sodium) 40 Mg Tablet.dr 40 Mg PO DAILY Hydrochlorothiazide 25 Mg Tablet 25 Mg PO DAILY Simvastatin 40 Mg Tablet 40 Mg PO HS Valsartan 160 Mg Tablet 160 Mg PO DAILY Aspirin EC (Aspirin) 325 Mg Tablet.dr 325 Mg PO DAILY Instructions to patient/family Please see electonic discharge instructions given to patient. Clinical Quality Measures DVT/VTE Risk/Contraindication: Risk Factor Score Per Nursin RFS Level Per Nursing on Admit: 2=Moderate Stroke: Date of last known well: May 17, 2016 YONI CARVAJAL DO May 19, 2016 10:25
[2016-05-19 11:25] VITALS: BP 150/84
[2016-05-19] MEDS ORDERED: FAMO20TA5 PO (11:45)
[2016-05-19] MEDS ORDERED: CLOP75TA28 PO (11:45)
--- NOTE | 2016-05-19 13:38 | Physical Therapy Daily Note ---
PT Daily Note-Current Subjective Pt reports not sleeping well last night. Pt agrees to PT. PT had trouble keeping pt awake during Ex. Pain Numeric Pain Scale: 0-No Pain Location: No Pain Reported Mental Status Patient Orientation: Person, Normal For Age Attachments: IV Transfers Functional [place] Measure 0=Not Assessed/NA 4=Minimal Assistance 1=Total Assistance 5=Supervision or Setup 2=Maximal Assistance 6=Modified [place] 3=Moderate Assistance 7=Complete IndependenceIRFPAI Quality Coding Scale 6 Independent with activity with or without an assistive device 5 Patient requires set up or clean up by helper. Patient completes activity by themselves 4 Supervision or touching assist (CGA). [place] provide cues , steadying assist 3 The helper provides less than half the effort to complete the activity 2 The helper provides more than half the effort to complete the activity 1 Dependent. The helper does all the effort to complete an activity 7 Patient refused to complete or attempt activity 9 The patient did not perform the activity before the current illness or injury 88 Not attempted due to Medical conditions or safety concerns Exercises Supine Ex: Ankle pumps, Quad Set, Heel Slides, Straight leg raise, Hip abd/add Supine Reps: 15 Treatments Pt completed supine Ex in bed due to difficulty keeping pt awake during tx. Pt was AROM on RLE and AAROM-AROM on LLE depending on Ex. Pt was left with all needs met at end of tx. Assessment Current Status: Fair Progress Pt has difficulty staying awake during tx. Pt still having weakness on LLE. PT Short Term Goals Short Term Goals Transfers (B,C,W/C) (FIM): 5 PT Process Control Technician Goals Fdc Goals PT Fdc Goals Time Frame: May 25, 2016 Transfers (B,C,W/C) (FIM): 6 Gait (FIM): 5 Gait distance (FIM): 3=150 ft Distance: 350' Gait Level of Assist: 5 Gait Assistive Device: FWW PT Plan Problem List Problem List: Activity Tolerance, Functional Strength, Safety, Balance, Gait, Transfer, Bed Mobility Treatment/Plan Treatment Plan: Continue Plan of Care Treatment Plan: Education, Functional Activity Boogie, Functional Strength, Gait , Safety, Therapeutic Exercise, Transfers Treatment Duration: May 25, 2016 Visits Per Week: 5-6 Safety Risks/Education Patient Education: Correct Positioning, Safety Issues Teaching Recipient: Patient Teaching Methods: Discussion Response to Teaching: Verbalize Understanding Time/GCodes Time In: 1110 Time Out: 1125 Total Billed Treatment Time: 15 Total Billed Treatment visit, EX (15m) PT/OT Therapy GCodes Therapy Functional Limitation: Physical Therapy Test(s)/Tool used to determine: Level of Assistance Scale Functional Limitation-Current Charge Code: MOBCUR Modifier: RAYMUNDO Functional Limitation-Goal Charge Code: MOBGOAL Modifier: AFUA COLEMAN SLAT BASKET MAKER MACHINE May 19, 2016 13:38
[2016-05-19 14:00] VITALS: BP 150/84
--- NOTE | 2016-05-19 15:02 | Occupational Ther Daily Note ---
OT Current Status-Daily Note Subjective No pain reported. Appearance Pt. is in bed. Has finished breakfast. Agrees to shower. Mental Status/Objective Patient Orientation: Unable to Assess Functional [place] Measure 0=Not Assessed/NA 4=Minimal Assistance 1=Total Assistance 5=Supervision or Setup 2=Maximal Assistance 6=Modified [place] 3=Moderate Assistance 7=Complete [place] Attachments: IV ADL-Treatment Bathing (FIM): 4 (Pt. requires constant cues and min assist in stance to bathe juan luis areas.) Lower Body Dressing (FIM): 4 (Pt. requires min assist to don brief and socks. Does not have any other street clothing available.) Toileting (FIM): 1 (Pt. incontinent of urine in brief.) Transfers (B, C, W/C) (FIM): 4 (Min assist supine-sit and sit- stand.) Shower Transfer(FIM): 4 Other Treatment All needs met back in bed. Pt. has rails up, call light in place, and bed alarm set. Education OT Patient Education: Modified ADL techniques, Progress toward Goal/Update tx plan, Purpose of tx/functional activities, Reviewed precautions, Rehab process, Transfer techniques Teaching Recipient: Patient Teaching Methods: Demonstration, Discussion Response to Teaching: Verbalize Understanding, Return Demonstration OT Short Term Goals Short Term Goals Time Frame: May 25, 2016 Eating(FIM): 5 Grooming(FIM): 5 Bathing(FIM): 4 Upper Body Dressing(FIM): 5 Lower Body Dressing(FIM): 4 Toileting(FIM): 4 Transfers (B,C,W/C) (FIM): 5 Toilet/Commode Transfer(FIM): 5 Shower Transfer(FIM): 4 Additional Short Term Goals: 1-Demonstrate ADL Tasks, 2-Verbalize Understanding , 3-ImproveStrength/Boogie 1=Demonstrate adherence to instructed precautions during ADL tasks. 2=Patient will verbalize/demonstrate understanding of assistive devices/ modifications for ADL. 3=Patient will improve strength/tolerance for activity to enable patient to perform ADL's. OT Residential Goals Artificial Limb Fitter Goals Time Frame: 06-01-16 Eating (FIM): 6 Grooming(FIM): 5 Bathing(FIM): 5 Upper Body Dressing(FIM): 5 Lower Body Dressing(FIM): 5 Toileting(FIM): 5 Transfers (B,C,W/C) (FIM): 5 Toilet/Commode Transfer(FIM): 5 Shower Transfer(FIM): 5 Additional Goals: 1-Demonstrate ADL Tasks, 2-Verbalize Understanding, 3- ImproveStrength/Boogie 1=Demonstrate adherence to instructed precautions during ADL tasks. 2=Patient will verbalize/demonstrate understanding of assistive devices/ modifications for ADL. 3=Patient will improve strength/tolerance for activity to enable patient to perform ADL's. OT Education/Plan Problem List/Assessment Assessment: Decreased Activ Tolerance, Dependent Transfers, Impaired Bed Mobility, Impaired Funct Balance, Impaired I ADL's, Impaired Self-Care Skills Discharge Recommendations Plan/Recommendations: Continue POC Therapy D/C Recommendations: Acute Rehab Treatment Plan/Plan of Care Treatment,Training & Education: Yes Patient would benefit from OT for education, treatment and training to promote independence in ADL's, mobility, safety and/or upper extremity function for ADL' s. Plan of Care: ADL Retraining, Functional Mobility, UE Funct Exercise/Act Treatment Duration: Jun 01, 2016 Visits Per Week: 10-12 Agreement: Yes Rehab Potential: Good Time/GCodes Start Time: 08:15 Stop Time: 08:45 Total Time Billed (hr/min): 30 Billed Treatment Time 1, ADL x 2 PT/OT Therapy GCodes Therapy Functional Limitation: Physical Therapy Test(s)/Tool used to determine: Level of Assistance Scale Functional Limitation-Current Charge Code: MOBCUR Modifier: CJ Functional Limitation-Goal Charge Code: MOBRONIT Modifier: SAQIB LOPEZ OT May 19, 2016 15:01
--- NOTE | 2016-05-24 10:10 | Physical Therapy Progress Note ---
Therapy Progress Note Review of PT documentation, G codes for discharge would be MOB GOAL CI; BRODIE DC CJ. RAAD DOSS PT May 24, 2016 10:10
== END 2016-05-19 11:46 ==
LOC: EDUNIT# 09:01 → ER 09:05 → 4TH 14:25 → UNDOADMOB 14:25 → 4TH 14:45
PROVIDERS: ADMIT Internal Medicine; ATTEND Internal Medicine
DX: I63.9 Cerebral infarction, unspecified (principal); G81.94 Hemiplegia, unspecified affecting left nondominant side; R29.810 Facial weakness; M21.372 Foot drop, left foot; E11.9 Type 2 diabetes mellitus without complications
CPT/HCPCS: 36415; 70450; 70551; 71010; 80053; 80061; 81000; 84484; 85025; 85379; 85610; 85730; 93005; 93041; G0378

== ENCOUNTER 2016-05-19 14:10 | Inpatient (IN) | payer MEDICARE, OTHER ==
[~2016-05-19] VITALS: Ht 170.2 cm; Wt 96.5 kg
[2016-05-19 14:10] VITALS: BP 156/91
[~2016-05-19 14:10] MED LIST changes: +ASPI325T32 PO; +CHOL5000 PO; +CITA20TA7 PO; +FAMO20TA5 PO; +FERR-74 PO; +PANT40TA2 PO; +SUCR1TAB36 PO; +VALS160T28 PO
--- OUTSIDE RECORDS SUMMARY | 2016-05-19 15:01 | XMS REPORT | Continuity of Care Document ---
Author Author [facility] Organization [facility] Address Unknown Phone Unavailable Support Name Relationship Address Phone RADHA MONDRAGON MD Caregiver [phone] [place] [address] RILEY STEWART Next Of Kin [address], [place] [id number] Insurance Providers Payer Name Policy Number Subscriber Name Relationship Wps Medicare [id number] Maile Stewart 20 Self / Same As Patient Comm Crossover Enter Ins Name [id number] Maile Stewart 20 Self / Same As Patient Advance Directives Directive Response Recorded Date/Time Advance Directives Yes 06/05/14 2:43pm Health Care Power of Customs Compliance Specialist No 06/05/14 2:43pm Organ Donor No 06/05/14 [...] Height (Inches) 7.00 inches Height (Calculated Centimeters) 170.659604 cm Weight (Pounds) 215 pounds Weight (Calculated Grams) 76431.361 gm Weight (Calculated Kilograms) 97.082649 kilograms Calculated BMI 33.67 Results Laboratory Results [...] Encounters Encounter Location Date/Time Registered Clinic [facility] 06/05/14 5:58am Discharged Recurring [facility] 06/04/14 9:59am
[2016-05-19] MEDS ORDERED: FAMOTIDINE 20 MG (PEPCID) TABLET PO PRN (15:45)
[2016-05-19] MEDS: SUCRALFATE 1 GM (CARAFATE) TAB PO SCH ×2 (18:24→21:19)
[2016-05-19 18:36] VITALS: BP 169/82
[2016-05-19] MEDS: FAMOTIDINE 20 MG (PEPCID) TABLET PO SCH (21:19)
[2016-05-19] MEDS: SIMvastatin 40 MG (ZOCOR) TAB PO SCH (21:19)
[2016-05-20 05:38] LABS: BASOPHILS % (AUTO) 0 % (0-10); EOSINOPHILS # (AUTO) 0.5 10^3/uL (0.0-0.3); EOSINOPHILS % (AUTO) 7 % (0-10); LYMPHOCYTES # (AUTO) 1.5 X 10^3 (1.0-4.0); LYMPHOCYTES % (AUTO) 21 % (12-44); MEAN CORPUSCULAR HEMOGLOBIN 29 PG (25-34); MEAN CORPUSCULAR HGB CONC 35 G/DL (32-36); MEAN CORPUSCULAR VOLUME 84 FL (80-99); MEAN PLATELET VOLUME 10.2 FL (7.4-10.4); MONOCYTES # (AUTO) 0.7 X 10^3 (0.0-1.0); MONOCYTES % (AUTO) 11 % (0-12); NEUTROPHILS # (AUTO) 4.2 X 10^3 (1.8-7.8); NEUTROPHILS % (AUTO) 61 % (42-75); PLATELET COUNT 157 10^3/uL (130-400); RED BLOOD COUNT 4.49 10^6/uL (4.35-5.85); RED CELL DISTRIBUTION WIDTH 13.3 % (10.0-14.5); WHITE BLOOD COUNT 6.8 10^3/uL (4.3-11.0)
[2016-05-20 05:58] LABS: ALANINE AMINOTRANSFERASE 15 U/L (0-55); ALBUMIN 3.7 G/DL (3.2-4.5); ANION GAP 8 MMOL/L (5-14); ASPARTATE AMINO TRANSFERASE 12 U/L (5-34); BILIRUBIN,TOTAL 0.8 MG/DL (0.1-1.0); BLOOD UREA NITROGEN 16 MG/DL (7-18); BUN/CREATININE RATIO 19; CALCIUM 8.9 MG/DL (8.5-10.1); CARBON DIOXIDE 25 MMOL/L (21-32); CHLORIDE 104 MMOL/L (98-107); CREATININE SERUM 0.85 MG/DL (0.60-1.30); GFR ESTIMATED > 60; GLUCOSE 103 MG/DL (70-105); POTASSIUM 3.8 MMOL/L (3.6-5.0); SODIUM 137 MMOL/L (135-145); TOTAL PROTEIN 5.7 G/DL (6.4-8.2)
[2016-05-20 06:00] VITALS: BP 148/80
[2016-05-20] MEDS: SUCRALFATE 1 GM (CARAFATE) TAB PO SCH ×4 (06:07→20:23)
[2016-05-20] MEDS: FERROUS SULF 325 MG (IRON) TAB PO SCH (06:07)
[2016-05-20] MEDS: PANTOPRAZOLE 40 MG (PROTONIX) TAB PO SCH (06:08)
[2016-05-20] MEDS: ASPIRIN E.C. 325 MG (ECOTRIN) TABLET PO SCH (08:47)
[2016-05-20] MEDS: HYDROCHLOROTHIAZIDE 25 MG (HCTZ) TAB PO SCH (08:47)
[2016-05-20] MEDS: VALSARTAN 80 MG (DIOVAN) TAB PO SCH (08:47)
[2016-05-20] MEDS: FAMOTIDINE 20 MG (PEPCID) TABLET PO SCH ×2 (08:47→20:23)
[2016-05-20] MEDS: VITAMIN D3 5,000 UNITS (CHOLECALCIFEROL ) CAPSULE PO SCH (08:48)
--- NOTE | 2016-05-20 08:56 | Occupational Therapy Eval ---
OT Evaluation-General/PLF Medical Diagnosis Admission Date May 19, 2016 at 14:10 Medical Diagnosis: Left sided weakness Onset Date: May 17, 2016 Therapy Diagnosis Therapy Diagnosis: Decreased ADL skills Height/Weight Height (Feet): 5 Height (Inches): 7.00 Weight (Pounds): 209 Weight (Ounces): 0.0 Precautions Precautions/Isolations: Fall Prevention, Standard Precautions Safety Interventions: Bed Exit Alarm Weight Bear Status Weight Bearing Restriction: Weight Bearing/Tolerated Referral Physician: Dr. Purdy Referral Reason: Activity Tolerance, Self Care, Evaluation/Treatment, Strengthening/ROM Medical History Pertinent Medical History: CVA, DM Additional Medical History Issues with prostate Current History Pt. lives with son and daughter in law. They state that his speech has been "garbled" since his last stroke in December, but is more so now. States that he woke up and began to walk. Was leaning to left. [place] that he was having a stroke. Reviewed History: Yes Social History Home: Single Level Current Living Status: Children Entry Into Home: Stairs With Railing Steps Into Home: 2 ADL-Prior Level of Function ADL PLOF Comments Family states that he was independent with ADLs this time previous to hospitalization. DME/Equipment: Bath Chair, Shower DME/Equipment Comments Pt. has walker and wheelchair. Drive Self: No OT Current Status Subjective No pain reported. Pt. smiling. Attempts to communicate but only approximately 25% is intelligible. Appearance Pt. in bed. Agrees to shower. Mental Status/Objective Patient Orientation: Person, Unable to Assess Due to poor speech, it is difficult to get history from pt. He also demonstrates poor sequencing and initiation in shower. Requires constant cues to complete tasks. Current Glasses/Contacts: Yes Hearing Aids: Yes Hand Dominance: Right Upper Extremity ROM Pt. demonstrates approximately 100 degrees shoulder flexion in right shoulder, and 80 degrees in left. All other joints WFL. Upper Extremity Coordination left-impaired. Upper Extremity Strength Pt. demonstrates 5/5 right UE throughout Pt. demonstrates 3+/5 left shoulder, and 4/5 all other joints in left UE. ADL-Treatment Functional [place] Measure 0=Not Assessed/NA 4=Minimal Assistance 1=Total Assistance 5=Supervision or Setup 2=Maximal Assistance 6=Modified [place] 3=Moderate Assistance 7=Complete IndependenceIRFPAI Quality Coding Scale 6 Independent with activity with or without an assistive device 5 Patient requires set up or clean up by helper. Patient completes activity by themselves 4 Supervision or touching assist (CGA). [place] provide cues , steadying assist 3 The helper provides less than half the effort to complete the activity 2 The helper provides more than half the effort to complete the activity 1 Dependent. The helper does all the effort to complete an activity 7 Patient refused to complete or attempt activity 9 The patient did not perform the activity before the current illness or injury 88 Not attempted due to Medical conditions or safety concerns Bathing (FIM): 4 (Pt. requires constanct cues and min assist for all transfers to rotary surface grinder shower to wash parts. Is able to wash juan luis area and feet. ) Shower/Bathe Self (QC): 4 Upper Body Dressing (FIM): 4 (Pt. requires min assist to pull shirt down over back.) Upper Body Dressing (QC): 4 Lower Body Dressing (FIM): 3 (Pt. requires constant cues for safety and mod assist for brief. Is able to thread it over feet but needs assist to pull up. Is able to don pants with min assist and socks with SBA.) Lower Body Dressing (QC): 3 On/Off Footwear (QC): 5 Toileting (FIM): 1 (Pt. incontinent in brief of urine.) Toileting Hygiene (QC): 2 Transfers (B, C, W/C) (FIM): 4 (Min assist for safety and balance with all ADL transfers.) Shower Transfer (FIM): 4 Pt. very pleasant. Agreeable to all treatment. Requires constant cues and direction for tasks. Will continually try to stand and walk without footwear on. Needs cues to sequence steps in shower. Poured water over feet but never initiated showering self until he was asked to. Education OT Patient Education: Correct positioning, Modified ADL techniques, Progress toward Goal/Update tx plan, Purpose of tx/functional activities, Reviewed precautions, Rehab process, Transfer techniques Teaching Recipient: Patient Teaching Methods: Demonstration, Discussion Response to Teaching: Verbalize Understanding, Return Demonstration OT Short Term Goals Short Term Goals Time Frame: May 27, 2016 Eating(FIM): 5 Grooming(FIM): 5 Bathing(FIM): 5 Upper Body Dressing(FIM): 5 Lower Body Dressing(FIM): 4 Toileting(FIM): 4 Transfers (B,C,W/C) (FIM): 5 Toilet/Commode Transfer(FIM): 5 Shower Transfer(FIM): 5 Additional Short Term Goals: 1-Demonstrate ADL Tasks, 2-Verbalize Understanding , 3-ImproveStrength/Boogie 1=Demonstrate adherence to instructed precautions during ADL tasks. 2=Patient will verbalize/demonstrate understanding of assistive devices/ modifications for ADL. 3=Patient will improve strength/tolerance for activity to enable patient to perform ADL's. OT Alf Goals Alf Goals Time Frame: Jun 10, 2016 Eating (FIM): 6 Eating (QC): 6 Oral Hygiene (QC): 5 Grooming(FIM): 5 Bathing(FIM): 5 Shower/Bathe Self (QC): 5 Upper Body Dressing(FIM): 5 Upper Body Dressing (QC): 5 Lower Body Dressing(FIM): 5 Lower Body Dressing (QC): 5 On/Off Footwear (QC): 5 Toileting(FIM): 6 Toileting Hygiene (QC): 6 Transfers (B,C,W/C) (FIM): 5 Toilet/Commode Transfer(FIM): 5 Toilet/Commode Transfer (QC): 5 Shower Transfer(FIM): 4 Additional Goals: 1-Demonstrate ADL Tasks, 2-Verbalize Understanding, 3- ImproveStrength/Boogie 1=Demonstrate adherence to instructed precautions during ADL tasks. 2=Patient will verbalize/demonstrate understanding of assistive devices/ modifications for ADL. 3=Patient will improve strength/tolerance for activity to enable patient to perform ADL's. OT Education/Plan Problem List/Assessment Assessment: Decreased Activ Tolerance, Decreased Safety Aware, Decreased UE Strength, Dependent Transfers, Impaired Bed Mobility, Impaired Cognition, Impaired Coordination, Impaired Funct Balance, Impaired I ADL's, Impaired Self- Care Skills, Restricted Funct UE ROM Discharge Recommendations Plan/Recommendations: Continue POC Therapy D/C Recommendations: Home w/ Family Support, Occupational Therapy Home Care, Scheduled Assistance Barriers to Progress Cognition, speech Treatment Plan/Plan of Care Treatment,Training & Education: Yes Patient would benefit from OT for education, treatment and training to promote independence in ADL's, mobility, safety and/or upper extremity function for ADL' s. Plan of Care: ADL Retraining, Caregiver Training, Functional Mobility, UE Funct Exercise/Act Treatment Duration: Jun 10, 2016 # of days/week 5-6 Visits Per Week: -12 Agreement: Yes Rehab Potential: Fair Time/GCodes Start Time: 08:00 Stop Time: 09:00 Total Time Billed (hr/min): 60 Billed Treatment Time 1, EVmod complexity x 15minutes, ADL x 45minutes SAQIB ADAM OT May 20, 2016 08:56
[2016-05-20] MEDS ORDERED: VITAMIN D3 5,000 UNITS (CHOLECALCIFEROL ) CAPSULE PO SCH (09:00)
--- NOTE | 2016-05-20 09:51 | HISTORY AND PHYSICAL ---
DATE OF ADMISSION: 05/19/2016 CHIEF COMPLAINT: Difficulty with walking. HISTORY OF PRESENT ILLNESS: The patient is an 85-year-old male with a recent right-sided stroke with left hemiparesis who had been at home and not received any inpatient rehabilitation for this condition. He had a period of confusion and increased left-sided weakness and dyscoordination in the distribution of the previous stroke with a decline in functional independence. The patient was brought to the ED and admitted to [facility] service Dr. Carvajal. The patient lives with his family in [place], [place] and PCP is in [facility]. Due to the patient having a history of diverticulosis with GI bleed, his Plavix has been on hold for several weeks. He is on aspirin for stroke prophylaxis. He is also on Carafate, Pepcid and Protonix for GI prophylaxis. He is on ferrous sulfate for iron replacement. Therapies were begun on the medical floor. The patient was making progress and he was referred to Inpatient Rehabilitation Unit. Currently he requires assistance for his ADLs and mobility skills. He is somewhat hard of hearing. A CT scan of the brain showed no significant change or new area of stroke. Clinically he was felt to have sustained an extension of his prior stroke. Currently he is Min assist for transfers and gait.He requires min to mod assist for his adls PAST MEDICAL HISTORY: 1. 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 2. Depression. 3. GI bleed. 4. Diverticulosis. 5. Hypertension. Past Surgical HX-Cabg times 4 as per patients current spouse done in [facility] and she indicates that patient had been on plavix since then CT of the head revealed several old lacunar infarcts. The impression was chronic ischemic leukoencephalopathy, diffuse cerebral degeneration. Chest x-ray revealed postop changes from the median sternotomy, calcified granuloma in the right mid lung. ALLERGIES: CODEINE. FAMILY HISTORY: Noncontributory. SOCIAL HISTORY: Essentially as per above. He is retired. REVIEW OF SYSTEMS: Ten-point review of systems significant for some word finding difficulty, left-sided weakness. MEDICATIONS: 1. ASA 325 mg p.o. daily, 2. Celexa 20 mg p.o. daily. 3. Hydrochlorothiazide 25 mg p.o. daily. 4. Diovan 160 mg p.o. daily. 5. Vitamin D3 10,000 units p.o. daily. 6. Ferrous sulfate 325 mg p.o. daily. 7. Protonix 40 mg p.o. daily. 8. Simvastatin 40 mg p.o. at bedtime. 9. Pepcid 20 mg p.o. b.i.d. 10. Carafate 1 gram p.o. q.i.d. before meals and at bedtime. PHYSICAL EXAMINATION: Physical examination is significant for a pleasant male, appearing his stated age, alert and oriented in no acute distress. VITAL SIGNS: He is afebrile, pulse is 60, respirations 20, blood pressure 168/82, O2 sat 97% on room air. HEENT: He has mild dysarthria, is hard of hearing and vision grossly intact. No oral lesion is noted. NECK: Supple without mass. HEART: Regular rhythm. LUNGS: Clear. Chest well healed sternotomy scar ABDOMEN: Soft, nontender. Bowel sounds present. EXTREMITIES: No edema. No calf tenderness. MUSCULOSKELETAL: He has functional active range of motion in all 4 extremities. NEUROLOGIC: He has very mild left hemiparesis. He has standing balance impairment. Sensation is grossly intact to touch. Cognition appears grossly intact. IMPRESSION: 1. 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 2. Hypertension, controlled with medication. 3. History of GI bleed from diverticula on iron replacement with Plavix on hold at this point. 4, Coronary artery d s/p Cabg times 4 in [facility] >10 years ago as per patients current spouse PLAN: The patient will have a comprehensive program of inpatient rehabilitation with goal of maximizing level of functional dependence prior to discharge home with family. The patient will have PT/OT 90 minutes per day, each discipline, 5 days a week, when not being seen by speech therapy, for gait strengthening, conditioning, balance, ADLs, any patient/family/caregiver training necessary, any adaptive equipment and training necessary. Speech therapy to do cognitive, speech and swallow assessment and treat as indicated 3 to 5 days a week for 1 to 2 weeks for 30 to 45 minutes per day. Rehabilitation nursing assist with bowel, bladder, skin care, medication administration. network services project manager to assist with discharge planning, community reentry. Follow-up with Dr. Carvajal as per her schedule. Therapy with cardiac and fall precautions. ESTIMATED LENGTH OF STAY: One to 2 weeks. PROGNOSIS: Rehab prognosis appears good for goal of discharging home with family at prior level of function which was modified independent for mobility with some assistance for ADLs from family. DIET: Regular. CODE STATUS: The patient requested DNR. POST ADMISSION PHYSICIAN ASSESSMENT: His initial screen agrees with the post admission assessment that the patient is a good candidate for inpatient rehabilitation. He appears to be well motivated to participate in 3 hours of therapy a day. He should be able tolerate 3 hours of therapy a day from a medical standpoint. He should benefit from 3 hours of therapy a day. He has a reasonable discharge plan, reasonable discharge rehabilitation goals and a supportive family. He has various comorbidities that need to be closely monitored with medications and treatments adjusted on a daily basis as needed. These include his history of GI bleed and hypertension. Barriers for discharge for this patient who had been at prior level of function as described above are for him to return to that prior level of function so as to lessen the burden of the caregivers, his family. Risks for this patient include: 1. Recurrent stroke. 2. Falls. 3. Fracture. 4. Recurrent bleed. 5. DVT. 6. Pulmonary embolism. 7. Urinary retention. 8. UTI. 9. Worsening confusion. 10. Respiratory infection. 11. Aspiration. We will utilize SCDs for DVT prophylaxis. Job ID: [id number] Dictated Date: 05/19/2016 18:58:49 Mouthpiece Maker Date: 05/20/2016 09:31:26/mathieu DIXON
--- NOTE | 2016-05-20 10:51 | Physical Therapy Evaluation ---
PT Evaluation-General Medical Diagnosis Admission Date May 19, 2016 at 14:10 Medical Diagnosis: Left sided weakness Onset Date: May 17, 2016 Therapy Diagnosis Therapy Diagnosis: impaired mobility, endurance, coordination, balance Height/Weight Height (Feet): 5 Height (Inches): 7.00 Weight (Pounds): 209 Weight (Ounces): 0.0 Precautions Precautions/Isolations: Fall Prevention, Standard Precautions Weight Bear Status Weight Bearing Restriction: Weight Bearing/Tolerated Referral Physician: Dr. Purdy Reason for Referral: Evaluation/Treatment Medical History Pertinent Medical History: CVA, DM, HTN Additional Medical History depression, GI bleed, diverticulosis Reviewed History: Yes Social History Home: Single Level Current Living Status: Children Entry Into Home: Stairs With Railing PT Steps Into Home: 2 Prior/Core FIM Prior Level of Function Functional [place] Measure 0=Not Assessed/NA 4=Minimal Assistance 1=Total Assistance 5=Supervision or Setup 2=Maximal Assistance 6=Modified [place] 3=Moderate Assistance 7=Complete [place] Bed Mobility: 6 Transfers (B,C,W/C) (FIM): 6 Gait: 6 Patient used a 4 wheeled walker but son states he often ambulated without it PT Evaluation-Current Subjective Patient in recliner pre tx, agrees to PT, pleasant and cooperative, has a lot of trouble speaking Pain Numeric Pain Scale: 0-No Pain Pt/Family Goals to be independent at home Objective Patient Orientation: Unable to Assess ROM/Strength ROM Lower Extremities WNL Strenght Lower Extremities right lower extremity (hip flexion 3+/5, knee flexion 4/5, knee extension 4+/5, dorsiflexion 4/5), left lower extremity (hip flexion 3+/5, knee flexion 4/5, knee extension 4/5, dorsiflexion 4-/5) Integumentary/Posture Bowel Incontinence: Yes Neuromuscular (Tone, Coordination, Reflexes) patient has decreased coordination in bilateral lower extremities tested with [place] slide Sensory Vision: Functional Hearing: Impaired Hand Dominance: Right Sensation Right Lower Extremit: Intact Sensation Left Lower Extremity: Intact Transfers Functional [place] Measure 0=Not Assessed/NA 4=Minimal Assistance 1=Total Assistance 5=Supervision or Setup 2=Maximal Assistance 6=Modified [place] 3=Moderate Assistance 7=Complete IndependenceIRFPAI Quality Coding Scale 6 Independent with activity with or without an assistive device 5 Patient requires set up or clean up by helper. Patient completes activity by themselves 4 Supervision or touching assist (CGA). [place] provide cues , steadying assist 3 The helper provides less than half the effort to complete the activity 2 The helper provides more than half the effort to complete the activity 1 Dependent. The helper does all the effort to complete an activity 7 Patient refused to complete or attempt activity 9 The patient did not perform the activity before the current illness or injury 88 Not attempted due to Medical conditions or safety concerns Transfers (B, C, W/C) (FIM): 4 Scootin Rollin Roll Left to Right (QC): 4 Supine to/from Sit: 4 Sit to/from Stand: 4 Sit to Lying (QC): 4 Lying to Sitting/Side of Bed(Q: 4 Sit to Stand (QC): 3 Chair/Wse-en-Xnkhd Xfer(QC): 3 Car Transfer (QC): 88 Patient performs bed mobility with SBA but does need extra time and cues. He performs sit to stand and transfers with min assist, especially from low surfaces and needs cues for safety and hand placement. Gait Does the Patient Walk?: Yes Mode of Locomotion: Walk Anticipated Mode of Locomotion: Walk Gait (FIM): 2 Walk 10 feet (QC): 4 Walk 50 ft with 2 Turns(QC): 4 Walk 150 ft (QC): 88 Walking 10ft/uneven surface-QC: 4 Distance: 100'x2 Gait Level of Assist: 4 (CGA) Gait Persons Needed: 1 Gait Assistive Device: FWW Comments/Gait Description Patient ambulates with CGA using a rolling walker and cues for safety including 10' over an uneven surface like carpet and 50' with at least 2 turns of 90 degrees. Wheelchair Training Does the Pt Use a Wheelchair?: No Stairs Stairs (FIM): 1 #of Steps: 1 Level of Assist: 4 (min A) 1 Step (curb) (QC): 3 4 Steps (QC): 88 Assistive Device: Walker 12 Steps (QC): 88 Patient needs min assist to go up and down 1 step using a rolling walker, upon stepping up onto the step with both feet patient was retropulsive and needed assist to maintain his balance Balance Sitting Static: Fair Sitting Dynamic: Fair Standing Static: Poor Standing Dynamic: Poor Picking up an Object (QC): 88 Assessment/Needs Patient has impairments in functional mobility, strength, balance, coordination post stroke. Rehab Potential: Fair PT Short Term Goals Short Term Goals Time Frame: May 27, 2016 Transfers (B,C,W/C) (FIM): 4 (CGA) Gait (FIM): 4 Gait Distance Comment: 150' Gait Level of Assist: 4 (CGA) Gait Assistive Device: FWW PT Analyst Microbiology Lab Goals Fpc Goals PT Fpc Goals Time Frame: Jun 10, 2016 Transfers (B,C,W/C) (FIM): 5 Sit to Lying (QC): 6 Lying-Sitting on Side/Bed(QC): 6 Sit to Stand (QC): 4 Rollin Roll Left to Right (QC): 6 Chair/Xib-xw-Xuieu Xfer(QC): 4 Car Transfer (QC): 4 Gait (FIM): 5 Distance: 200' Walk 10 feet (QC): 4 Walk 10ft-Uneven Surface(QC): 4 Walk 50ft with 2 Turns (QC): 4 Walk 150 ft (QC): 4 Gait Level of Assist: 5 Gait Assistive Device: FWW Stairs (FIM): 2 # of Steps: 4 1 Step (curb) (QC): 4 4 Steps (QC): 4 12 Steps (QC): 88 Stairs Level Of Assist: 4 (CGA) Picking up an Object (QC): 4 PT Plan Problem List Problem List: Activity Tolerance, Functional Strength, Safety, Balance, Gait, Transfer, Bed Mobility Treatment/Plan Treatment Plan: Continue Plan of Care Treatment Plan: Bed Mobility, Education, Functional Activity Boogie, Functional Strength, Group Therapy, Gait, Safety, Therapeutic Exercise, Transfers Treatment Duration: Jun 10, 2016 # of days/week 5-6 Visits Per Week: 10-11 Minutes/Day (M-F): 60-90 Minutes/Day (Sat/Lam): 15-30 Pt/Family Agrees w/Plan: Yes Safety Risks/Education Patient Education: Gait Training, Transfer Techniques, Steps, Safety Issues Teaching Recipient: Patient Teaching Methods: Demonstration, Discussion Response to Teaching: Reinforcement Needed Discharge Recommendations Plan Patient will perform bed mobility and transfer training, balance and endurance training, functional strengthening, stair training, gait training, education, to improve functional mobility and independence at home. Therapy D/C Recommendations: Home w/ Family Support Time/GCodes Time In: 1000 Time Out: 1050 Total Billed Treatment Time: 50 Total Billed Treatment 1 visit EVL 15 min FA 15 min GT 20 min KELLEN ROY PT May 20, 2016 10:51
--- NOTE | 2016-05-20 11:45 | ST Cognitive Linguistic Eval ---
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 Shemar Purdy Reason for Referral: Evaluation/Treatment Speech, Language, Cognitive Evaluation Medical History Pertinent Medical History: CVA, DM, HTN Reviewed History: Yes Social History Current Living Status: Children Speech PLF-Current Status Prior Level of Function Per patient's family, the patient's communication (speech) was impaired prior to his recent hospitalization, however, it has worsened since admission. Subjective The patient was recently admitted to [facility] with a diagnosis of left sided weakness. The patient greeted the clinician appropriately and agreed to participate in the cognitive, speech, and language evaluation on this date. Language Eval: Auditory Comprehends Simple Yes/No Ques: Moderate (The patient intermittently responded accurately to simple yes/no questions with maximum clinician prompting and repetition.) Indent/Objects Multiple [place]: Functional Ident/Pics in Multiple [place]: Functional Follows 1-Step Commands: Functional Follows Complex Directions: Moderate (Repetition and direct modeling was required for multi-step commands.) Follows General Conversations: Moderate (Frequent repetition of questions, as well as, reduced rate was required for increased comprehension of conversational content.) Language Eval: Verbal Language Completes Spontaneous Greeting: Functional Produces Auto, Serial Info: Moderate Imitates Simple Words/Phrases: Moderate (The patient was able to repeat two single words, however, was unable to repeat all single words or short phrases accurately. Initial paraphasias, as well as, whole word paraphasias were noted.) Word Finding: Moderate (The patient was able to name three animals in a one minute time frame.) Requests Basic Needs: Mild States Basic Personal Info: Mild Expresses Complex Ideas: Moderate Language Evaluation: Writing Writes to Simple Dictation: Moderate Writes Personal Information: Moderate (The patient was able to write name, however, reduced legibility was noted.) Writes Short Phrases: Moderate (The patient was able to write two initial words of short phrases.) Cognitive Patient Orientation The patient was oriented to self. The patient required maximum clinician prompting for accurate month and year. Objective Cognitive Domain Attention: WNL Memory: Moderate Problem Solving: Moderate Executive Functions: Moderate Clock Drawing Severity Rating: Severe (The patient was unable to compose a clock drawing regardless of maximum clinician cueing.) Objective Impression The patient demonstrated moderate to severe expressive aphasia characterized by paraphasias and word-finding impairments, as well as, receptive aphasia and mild to moderate cognitive impairments in the areas of memory and functional problem solving. Communication/Social Cognition Comprehension: 3 Expression: 2 Social Interaction: 4 Problem Solvin Memory: 3 Speech Patient Assess Expression of Ideas/Wants: Frequently (2) Understanding [place] Content: Sometimes Understands(2) Brief Interview-Mental Status: Yes Repetition of Three Words: Two (2) Temporal Orientation: Year: No answer (0) Temporal Orientation: Month: No answer (0) Temporal Orientation: Day: Incorrect or No Answer(0) Recall : Wear: No, could not recall (0) Recall : Color: No, could not recall (0) Recall : Bed: No, could not recall (0) Memory/Recall Ability: None of the above were recalled (The patient stated the season was "cold," however, could not state the season as winter.) Speech Short Term Goals Short Term Goals Short Term Goals 1. The patient will demonstrated 80% accuracy with repetition of functional phrases. 2. The patient will demonstrate 80% accuracy with functional safety problem solving, independently. 3. The patient will demonstrate 80% accuracy with repetition of single words ( for transition into functional phrases). 4. The patient will demonstrate 80% accuracy with simple yes/no questions. Time Frame-STG: Two Weeks Speech Motorsports Technician Goals Motorsports Technician Goals 1. The patient will demonstrated improved expressive communication for increased function and safety with ADL's in the least restrictive setting. Time Frame: Six Weeks Comprehension: 4 Expression: 4 Social Interaction: 5 Problem Solvin Memory: 4 Speech-Plan Treatment Plan Speech Therapy Treatment Plan: Continue Plan of Care Treatment Duration: Jul 01, 2016 # of days/week Four to Five Visits Per Week: Four to Five Minutes/Day (M-F): 30 Rehab Potential: Fair Safety Risks/Education Teaching Recipient: Patient Teaching Methods: Discussion Response to Teaching: Verbalize Understanding Education Topics Provided: Plan of Care Time Speech Therapy Time In: 11:15 Speech Therapy Time Out: 11:30 Total Billed Time: 15 Billed Treatment Time 1, HUBERT BRIDGESSUE May 20, 2016 11:45
--- NOTE | 2016-05-20 12:47 | Occupational Ther Daily Note ---
OT Current Status-Daily Note Subjective No pain reported. Appearance Pt. attempting to get up on his own. Chair alarm going off. OT checked on pt. States he has to go to bathroom. Pt. educated not to get up on his own. Mental Status/Objective Patient Orientation: Confused Functional [place] Measure 0=Not Assessed/NA 4=Minimal Assistance 1=Total Assistance 5=Supervision or Setup 2=Maximal Assistance 6=Modified [place] 3=Moderate Assistance 7=Complete [place] ADL-Treatment Functional [place] Measure 0=Not Assessed/NA 4=Minimal Assistance 1=Total Assistance 5=Supervision or Setup 2=Maximal Assistance 6=Modified [place] 3=Moderate Assistance 7=Complete IndependenceIRFPAI Quality Coding Scale 6 Independent with activity with or without an assistive device 5 Patient requires set up or clean up by helper. Patient completes activity by themselves 4 Supervision or touching assist (CGA). [place] provide cues , steadying assist 3 The helper provides less than half the effort to complete the activity 2 The helper provides more than half the effort to complete the activity 1 Dependent. The helper does all the effort to complete an activity 7 Patient refused to complete or attempt activity 9 The patient did not perform the activity before the current illness or injury 88 Not attempted due to Medical conditions or safety concerns Toileting Hygiene (QC): 4 Toileting (FIM): 4 (Pt. requires min assist for balance in stance while opening fasteners on pants and standing at toilet.) Transfers (B, C, W/C) (FIM): 4 (CGA to stand and ambulate.) Other Treatment After toileting, pt. agreed to ambulate to therapy gym with OT. Required CGA with walker to ambulate [id number] feet. Pt. completed 10 minutes on armbike at min resistance to increase overall strength and mobility for tasks such as donning shirt, brushing hair. Pt. then ambulated back to room with all needs met. Continue POC. Education OT Patient Education: Correct positioning, Modified ADL techniques, Progress toward Goal/Update tx plan, Purpose of tx/functional activities, Reviewed precautions, Rehab process, Transfer techniques Teaching Recipient: Patient Teaching Methods: Demonstration, Discussion Response to Teaching: Verbalize Understanding, Return Demonstration OT Short Term Goals Short Term Goals Time Frame: May 27, 2016 Eating(FIM): 5 Grooming(FIM): 5 Bathing(FIM): 5 Upper Body Dressing(FIM): 5 Lower Body Dressing(FIM): 4 Toileting(FIM): 4 Transfers (B,C,W/C) (FIM): 4 (CGA) Toilet/Commode Transfer(FIM): 5 Shower Transfer(FIM): 5 Additional Short Term Goals: 1-Demonstrate ADL Tasks, 2-Verbalize Understanding , 3-ImproveStrength/Boogie 1=Demonstrate adherence to instructed precautions during ADL tasks. 2=Patient will verbalize/demonstrate understanding of assistive devices/ modifications for ADL. 3=Patient will improve strength/tolerance for activity to enable patient to perform ADL's. OT Body Technician/Painter Goals Body Technician/Painter Goals Time Frame: Jun 10, 2016 Eating (FIM): 6 Eating (QC): 6 Oral Hygiene (QC): 5 Grooming(FIM): 5 Bathing(FIM): 5 Shower/Bathe Self (QC): 5 Upper Body Dressing(FIM): 5 Upper Body Dressing (QC): 5 Lower Body Dressing(FIM): 5 Lower Body Dressing (QC): 5 On/Off Footwear (QC): 5 Toileting(FIM): 6 Toileting Hygiene (QC): 6 Transfers (B,C,W/C) (FIM): 5 Toilet/Commode Transfer(FIM): 5 Toilet/Commode Transfer (QC): 5 Shower Transfer(FIM): 4 Comprehension(FIM): 4 Expression (FIM): 4 Social Interaction(FIM): 5 Problem Solving(FIM): 4 Memory(FIM): 4 Additional Goals: 1-Demonstrate ADL Tasks, 2-Verbalize Understanding, 3- ImproveStrength/Boogie 1=Demonstrate adherence to instructed precautions during ADL tasks. 2=Patient will verbalize/demonstrate understanding of assistive devices/ modifications for ADL. 3=Patient will improve strength/tolerance for activity to enable patient to perform ADL's. OT Education/Plan Problem List/Assessment Assessment: Decreased Activ Tolerance, Decreased UE Strength, Dependent Transfers, Impaired Bed Mobility, Impaired Funct Balance, Impaired I ADL's, Impaired Self-Care Skills, Restricted Funct UE ROM Discharge Recommendations Plan/Recommendations: Continue POC Therapy D/C Recommendations: Home w/ Family Support, Occupational Therapy Home Care, Scheduled Assistance Treatment Plan/Plan of Care Treatment,Training & Education: Yes Patient would benefit from OT for education, treatment and training to promote independence in ADL's, mobility, safety and/or upper extremity function for ADL' s. Plan of Care: ADL Retraining, Caregiver Training, Functional Mobility, UE Funct Exercise/Act Treatment Duration: Jun 10, 2016 Visits Per Week: 10-12 Agreement: Yes Rehab Potential: Fair Time/GCodes Start Time: 10:50 Stop Time: 11:12 Total Time Billed (hr/min): 22 Billed Treatment Time 1, EX SAQIB ADAM OT May 20, 2016 12:46
--- NOTE | 2016-05-20 14:23 | Occupational Ther Daily Note ---
OT Current Status-Daily Note Subjective Pt. up in chair finishing lunch. Smiles and greets OT. Mental Status/Objective Patient Orientation: Unable to Assess Functional [place] Measure 0=Not Assessed/NA 4=Minimal Assistance 1=Total Assistance 5=Supervision or Setup 2=Maximal Assistance 6=Modified [place] 3=Moderate Assistance 7=Complete [place] ADL-Treatment Functional [place] Measure 0=Not Assessed/NA 4=Minimal Assistance 1=Total Assistance 5=Supervision or Setup 2=Maximal Assistance 6=Modified [place] 3=Moderate Assistance 7=Complete IndependenceIRFPAI Quality Coding Scale 6 Independent with activity with or without an assistive device 5 Patient requires set up or clean up by helper. Patient completes activity by themselves 4 Supervision or touching assist (CGA). [place] provide cues , steadying assist 3 The helper provides less than half the effort to complete the activity 2 The helper provides more than half the effort to complete the activity 1 Dependent. The helper does all the effort to complete an activity 7 Patient refused to complete or attempt activity 9 The patient did not perform the activity before the current illness or injury 88 Not attempted due to Medical conditions or safety concerns Eating (FIM): 5 Eating (QC): 5 (set up) Other Treatment Pt. issued red theraband and therapy sponge. Pt. completed bilateral UE exercises in all planes. Completed 20 bilateral hand squeezes with yellow sponge , and 2 exercises x 15 reps each with red theraband. Tolerated these exercises to increase overall strength for daily tasks such as donning his shirt. All needs met in room when OT done. Education OT Patient Education: Correct positioning, Exercise program, Modified ADL techniques, Progress toward Goal/Update tx plan, Purpose of tx/functional activities, Reviewed precautions, Rehab process, Transfer techniques Teaching Recipient: Patient Teaching Methods: Demonstration, Discussion Response to Teaching: Verbalize Understanding, Return Demonstration OT Short Term Goals Short Term Goals Time Frame: May 27, 2016 Eating(FIM): 5 Grooming(FIM): 5 Bathing(FIM): 5 Upper Body Dressing(FIM): 5 Lower Body Dressing(FIM): 4 Toileting(FIM): 4 Transfers (B,C,W/C) (FIM): 4 (CGA) Toilet/Commode Transfer(FIM): 5 Shower Transfer(FIM): 5 Additional Short Term Goals: 1-Demonstrate ADL Tasks, 2-Verbalize Understanding , 3-ImproveStrength/Boogie 1=Demonstrate adherence to instructed precautions during ADL tasks. 2=Patient will verbalize/demonstrate understanding of assistive devices/ modifications for ADL. 3=Patient will improve strength/tolerance for activity to enable patient to perform ADL's. OT Prison Goals Prison Goals Time Frame: Jun 10, 2016 Eating (FIM): 6 Eating (QC): 6 Oral Hygiene (QC): 5 Grooming(FIM): 5 Bathing(FIM): 5 Shower/Bathe Self (QC): 5 Upper Body Dressing(FIM): 5 Upper Body Dressing (QC): 5 Lower Body Dressing(FIM): 5 Lower Body Dressing (QC): 5 On/Off Footwear (QC): 5 Toileting(FIM): 6 Toileting Hygiene (QC): 6 Transfers (B,C,W/C) (FIM): 5 Toilet/Commode Transfer(FIM): 5 Toilet/Commode Transfer (QC): 5 Shower Transfer(FIM): 4 Comprehension(FIM): 4 Expression (FIM): 4 Social Interaction(FIM): 5 Problem Solving(FIM): 4 Memory(FIM): 4 Additional Goals: 1-Demonstrate ADL Tasks, 2-Verbalize Understanding, 3- ImproveStrength/Boogie 1=Demonstrate adherence to instructed precautions during ADL tasks. 2=Patient will verbalize/demonstrate understanding of assistive devices/ modifications for ADL. 3=Patient will improve strength/tolerance for activity to enable patient to perform ADL's. OT Education/Plan Problem List/Assessment Assessment: Decreased Activ Tolerance, Decreased UE Strength, Dependent Transfers, Impaired Bed Mobility, Impaired I ADL's, Impaired Self-Care Skills Discharge Recommendations Plan/Recommendations: Continue POC Therapy D/C Recommendations: Home w/ Family Support, Occupational Therapy Home Care, Scheduled Assistance Treatment Plan/Plan of Care Treatment,Training & Education: Yes Patient would benefit from OT for education, treatment and training to promote independence in ADL's, mobility, safety and/or upper extremity function for ADL' s. Plan of Care: ADL Retraining, Caregiver Training, Functional Mobility, UE Funct Exercise/Act Treatment Duration: Jun 10, 2016 Visits Per Week: 10-12 Agreement: Yes Rehab Potential: Fair Time/GCodes Start Time: 13:05 Stop Time: 13:20 Total Time Billed (hr/min): 15 Billed Treatment Time 1, EX SAQIB ADAM OT May 20, 2016 14:23
--- NOTE | 2016-05-20 15:12 | Physical Therapy Daily Note ---
PT Daily Note-Current Subjective Patient is in recliner and agrees to PT. No c/o at this time. Pain Numeric Pain Scale: 0-No Pain Location: No Pain Reported Mental Status Patient Orientation: Confused Transfers Functional [place] Measure 0=Not Assessed/NA 4=Minimal Assistance 1=Total Assistance 5=Supervision or Setup 2=Maximal Assistance 6=Modified [place] 3=Moderate Assistance 7=Complete IndependenceIRFPAI Quality Coding Scale 6 Independent with activity with or without an assistive device 5 Patient requires set up or clean up by helper. Patient completes activity by themselves 4 Supervision or touching assist (CGA). [place] provide cues , steadying assist 3 The helper provides less than half the effort to complete the activity 2 The helper provides more than half the effort to complete the activity 1 Dependent. The helper does all the effort to complete an activity 7 Patient refused to complete or attempt activity 9 The patient did not perform the activity before the current illness or injury 88 Not attempted due to Medical conditions or safety concerns Transfers (B, C, W/C) (FIM): 4 Scootin Sit to/from Stand: 4 Sit to Stand (QC): 4 Car Transfer (QC): 4 CGA for safety and stability. Patient continues to display severe lean to left with inability to self correct. Mirror place in front of patient during treatment to reinforce proper postural alignment. Gait Training Does the Patient Walk?: Yes Gait (FIM): 4 Distance (FIM): 3=150 ft Distance: 150' x 2 Walk 10 feet (QC): 4 Walk 50 ft with 2 Turns(QC): 4 Walk 150 ft (QC): 4 Gait Level of Assist: 4 Gait Persons Needed: 1 Gait Assistive Device: FWW tactile and verbal cueing for body placement in FWW. Patient demonstrates extended UE's with FWW and when turning, patient will walk outside of FWW and is extremely unsafe Exercises Seated Therapy Exercises: Ankle pumps, Long arc quads Seated Reps: 20 NuStep Minutes: 10 NuStep Workload: 3 Treatments exercises to improve strength and mobility to ensure progression in stability with ambulation Assessment Patient fatigues quickly with treatment. Patient returned to room and is up in recliner with chair alarm activated. Call light in hand. PT Short Term Goals Short Term Goals Time Frame: May 27, 2016 Transfers (B,C,W/C) (FIM): 4 (CGA) Gait (FIM): 4 Gait Distance Comment: 150' Gait Level of Assist: 4 (CGA) Gait Assistive Device: FWW PT [facility] Goals Nursing Surgical Services Director Goals PT [facility] Goals Time Frame: Jun 10, 2016 Transfers (B,C,W/C) (FIM): 5 Sit to Lying (QC): 6 Lying-Sitting on Side/Bed(QC): 6 Sit to Stand (QC): 4 Rollin Roll Left to Right (QC): 6 Chair/Ine-um-Xxvdb Xfer(QC): 4 Car Transfer (QC): 4 Gait (FIM): 5 Distance: 200' Walk 10 feet (QC): 4 Walk 10ft-Uneven Surface(QC): 4 Walk 50ft with 2 Turns (QC): 4 Walk 150 ft (QC): 4 Gait Level of Assist: 5 Gait Assistive Device: FWW Stairs (FIM): 2 # of Steps: 4 1 Step (curb) (QC): 4 4 Steps (QC): 4 12 Steps (QC): 88 Stairs Level Of Assist: 4 (CGA) Picking up an Object (QC): 4 PT Plan Treatment/Plan Treatment Plan: Continue Plan of Care Treatment Plan: Bed Mobility, Education, Functional Activity Boogie, Functional Strength, Group Therapy, Gait, Safety, Therapeutic Exercise, Transfers Treatment Duration: Jun 10, 2016 Visits Per Week: 10-11 Minutes/Day (M-F): 60-90 Minutes/Day (Sat/Lam): 15-30 Time/GCodes Time In: 1435 Time Out: 1505 Total Billed Treatment Time: 30 Total Billed Treatment 1 visit GT 15 min EX 15 min ARJUN JOY PT May 20, 2016 15:12
--- NOTE | 2016-05-20 17:53 | PM & R (SOAP) Progress Note ---
Subjective Subjective/Events-last exam Patient was seen in his room with his spouse this AM Patient min assist for transfers Some Medical HX clarified with patients spouse Appreciate current labs and therapy notes. Review of Systems Neurological: : Change in speech: Weakness Objective Exam Last Set of Vital Signs Vital Signs Date Time Temp Pulse Resp B/P Pulse Ox O2 Delivery O2 Flow Rate FiO2 05/20/16 06:00 98.6 68 22 148/80 95 Room Air Capillary Refill : I&O Bad tableGeneral: Alert, Cooperative, No Acute Distress HEENT: Atraumatic, PERRLA, EOMI, Mucous Memb Moist/[place], Other ([place]) Neck: Supple, No JVD Lungs: Clear to Auscultation Heart: Regular Rate Abdomen: Normal Bowel Sounds, Soft, No Tenderness Extremities: No Edema Neuro: Other (left HP with hip flex 3+/5 Knee flex/ext4/5 and Ankle dorsiflexion 4-/5 left shoulder 3+/5 distal 4/5 rt side Functional strength) Results Lab Laboratory Tests 05/20/16 05:08: Alanine Aminotransferase (ALT/SGPT) 15, Albumin 3.7, Alkaline Phosphatase 81, Anion Gap 8, Aspartate Amino Transf (AST/SGOT) 12, BUN/Creatinine Ratio 19, Basophils # (Auto) 0.0, Basophils (%) (Auto) 0, Blood Urea Nitrogen 16, Calcium Level 8.9, Carbon Dioxide Level 25, Chloride Level 104, Creatinine 0.85, Eosinophils # (Auto) 0.5H, Eosinophils (%) (Auto) 7, Estimat Glomerular Filtration Rate > 60, Glucose Level 103, Hematocrit 38L, Hemoglobin 13.2L, Lymphocytes # (Auto) 1.5, Lymphocytes (%) (Auto) 21, Mean Corpuscular Hemoglobin 29, Mean Corpuscular Hemoglobin Concent 35, Mean Corpuscular Volume 84, Mean Platelet Volume 10.2, Monocytes # (Auto) 0.7, Monocytes (%) (Auto) 11, Neutrophils # (Auto) 4.2, Neutrophils (%) (Auto) 61, Platelet Count 157, Potassium Level 3.8, Red Blood Count 4.49, Red Cell Distribution Width 13.3, Sodium Level 137, Total Bilirubin 0.8, Total Protein 5.7L, White Blood Count 6.8 Assessment/Plan Assessment 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
--- NOTE | 2016-05-20 17:59 | Individualized Plan of Care ---
Individualized Plan of Care Rehab Nursing IPOC Order Admission Date May 19, 2016 at 14:10 Current Orders Orders-BRADY TAN MD Admission-Acute Rehab Unit (05/19/16 15:30) Sequential Compression Device 08,20 (05/19/16 15:30) Social Service (05/19/16 15:30) Rehab Nursing Orders-Ipoc (05/19/16 15:30) Physical Therapy Rehab Orders (05/19/16 15:30) Occupational Therapy Rehab Ord (05/19/16 15:30) Speech Therapy Rehab Orders (05/19/16 15:30) General/Regular (05/19/16 Dinner) Intake & Output Shift Assessme 06,14,22 (05/19/16 15:30) Precautions (Aru) (05/19/16 15:30) Weekly Weight (Lbs) WEEK (05/19/16 15:30) Consult Physician (05/19/16 15:38) Famotidine Tablet (Pepcid Tablet) (05/19/16 15:45) Aspirin Enteric Coated Tablet (Ecotrin T (05/20/16 09:00) Cholecalciferol Capsule/Tablet (Vitamin (05/20/16 09:00) Citalopram Tablet (Celexa Tablet) (05/20/16 09:00) Ferrous Sulfate Tablet (Feosol Tablet) (05/20/16 07:00) Hydrochlorothiazide Cap/Tablet (Hctz Cap (05/20/16 09:00) Pantoprazole Tablet (Protonix Tablet) (05/20/16 07:00) Simvastatin Tablet (Zocor Tablet) (05/19/16 21:00) Sucralfate Tablet (Carafate Tablet) (05/19/16 16:00) Valsartan Tablet (Diovan Tablet) (05/20/16 09:00) Famotidine Tablet (Pepcid Tablet) (05/19/16 21:00) Cholecalciferol Capsule/Tablet (Vitamin (05/20/16 09:00) Nursing Communication (Pt.Care (05/19/16 15:51) Code/Resuscitation (05/19/16 18:46) Cbc With Automated Diff (05/20/16 06:00) Comprehensive Metabolic Panel (05/20/16 06:00) Patient Visit (05/20/16 ) Speech Sound Lang Comp (05/20/16 ) Patient Visit (05/20/16 ) Exercise Therap, Ea 15 Min (05/20/16 ) Gait Training, Ea 15 Min (05/20/16 ) Patient Visit (05/20/16 ) Pt Eval Low Complexity (05/20/16 ) Functional Activities, Ea 15 (05/20/16 ) Gait Training, Ea 15 Min (05/20/16 ) PT IPOC Problem List: Activity Tolerance, Functional Strength, Safety, Balance, Gait, Transfer, Bed Mobility Treatment Plan: Continue Plan of Care Bed Mobility, Education, Functional Activity Boogie, Functional Strength, Group Therapy, Gait, Safety, Therapeutic Exercise, Transfers Treatment Duration: Jun 10, 2016 Visits Per Week: 10-11 Minutes/Day (M-F): 60-90 Minutes/Day (Sat/Lam): 15-30 OT IPOC Problems: Decreased Activ Tolerance, Decreased UE Strength, Dependent Transfers , Impaired Bed Mobility, Impaired I ADL's, Impaired Self-Care Skills Plan of Care: ADL Retraining, Caregiver Training, Functional Mobility, UE Funct Exercise/Act Treatment Duration: Jun 10, 2016 Visits Per Week: 10-12 Minutes/Day (M-F): 60-90 Minutes/Day (Sat/Lam): 15-30 ST IPOC Speech Therapy Treatment Plan: Continue Plan of Care Treatment Duration: Jul 01, 2016 Visits Per Week: Four to Five Minutes/Day (M-F): 30 Physician IPOC Medical Issues being managed closely and that require the 24 hour availability of a physician:HTN recuurent stroke with decline in functional [place] HX of GI bleed with pavix on hold Depression Medical Issues: DVT Prophylaxis, Falls Precautions, Fluid/Electrolyte/ Nutrition Balance, Other (List) (as per above) Brief Synthesis of Preadmission Screen, Post-Admission Evaluation, and Therapy Evaluations:85 yo male with recent RT CVa with left HP and Expressive aphasia who was sent home with spouse with HHC who developed increased confusion at home associated with a decline in Functional [place],Admiited to Hospitalist service at [facility] for ongoing care Referred to [facility] for formal Inpatient Stroke rehab program,H CAD s/p CABG >10 years ago with plavix on hold for several weeks due to recent GI bleed felt to be due to Diverticuli Medical Prognosis: good Anticipated Length of Stay: 06/10/16 Rehab Goals Modified independent to Supervison for adls and mobility skills with improvement in expressive aphasia and communication skills Anticipated discharge destinat: Home with spouse and [facility] BRADY TAN MD May 20, 2016 17:59
[2016-05-20 18:37] VITALS: BP 140/80
[2016-05-20] MEDS: SIMvastatin 40 MG (ZOCOR) TAB PO SCH (20:23)
[2016-05-21] MEDS: PANTOPRAZOLE 40 MG (PROTONIX) TAB PO SCH (05:48)
[2016-05-21] MEDS: FERROUS SULF 325 MG (IRON) TAB PO SCH (05:48)
[2016-05-21] MEDS: SUCRALFATE 1 GM (CARAFATE) TAB PO SCH ×4 (05:48→21:30)
[2016-05-21 06:00] VITALS: BP 135/84
--- NOTE | 2016-05-21 08:26 | Physical Therapy Daily Note ---
PT Daily Note-Current Subjective Patient is in bed asleep. Wakes easily and agrees to PT. Pain Numeric Pain Scale: 0-No Pain Location: No Pain Reported Mental Status Patient Orientation: Confused Transfers Functional [place] Measure 0=Not Assessed/NA 4=Minimal Assistance 1=Total Assistance 5=Supervision or Setup 2=Maximal Assistance 6=Modified [place] 3=Moderate Assistance 7=Complete IndependenceIRFPAI Quality Coding Scale 6 Independent with activity with or without an assistive device 5 Patient requires set up or clean up by helper. Patient completes activity by themselves 4 Supervision or touching assist (CGA). [place] provide cues , steadying assist 3 The helper provides less than half the effort to complete the activity 2 The helper provides more than half the effort to complete the activity 1 Dependent. The helper does all the effort to complete an activity 7 Patient refused to complete or attempt activity 9 The patient did not perform the activity before the current illness or injury 88 Not attempted due to Medical conditions or safety concerns Transfers (B, C, W/C) (FIM): 4 Scootin Rollin Roll Left to Right (QC): 5 Supine to/from Sit: 5 Sit to/from Stand: 4 Sit to Stand (QC): 4 Chair/Boq-ao-Xjmce Xfer(QC): 4 Bed to/from Chair: 4 Car Transfer (QC): 4 CGA for safety; minimal assist with car transfer to assist with left LE Gait Training Does the Patient Walk?: Yes Gait (FIM): 4 Distance (FIM): 3=150 ft Distance: 150' x 4 Walk 10 feet (QC): 4 Walk 50 ft with 2 Turns(QC): 4 Walk 150 ft (QC): 4 Walking 10ft/uneven surface-QC: 4 Gait Level of Assist: 4 Gait Persons Needed: 1 Gait Assistive Device: FWW continuous verbal redirection to remain on task. Patient is very distracted by environment. 90% skilled verbal instruction for body placement with FWW. Patient demonstrates shuffle gait sequence with no foot clearance and extended UE's. Exercises Supine Ex: Ankle pumps, Heel Slides, Straight leg raise Supine Reps: 10 Seated Therapy Exercises: Ankle pumps, Long arc quads, Hip flexion Seated Reps: 10 Standing: Heel/toe raises, Marching Standing Reps: 10 all exercises x 2 sets to address functional strength to improve functional mobility with ambulation NuStep Minutes: 10 NuStep Workload: 3 Neuromuscular NuStep utilized to improve reciprocal movement to improve gait Assessment Patient is easily distracted by environment and requires continuous redirection to remain on task. Patient appears to have difficulty retaining education on gait training to improve safety concerns. Patient is up in recliner with chair alarm activated for safety. PT Short Term Goals Short Term Goals Time Frame: May 27, 2016 Transfers (B,C,W/C) (FIM): 4 (CGA) Gait (FIM): 4 Gait Distance Comment: 150' Gait Level of Assist: 4 (CGA) Gait Assistive Device: FWW PT Skilled Nursing Goals Fitting Room Inspector Goals PT Fitting Room Inspector Goals Time Frame: Jun 10, 2016 Transfers (B,C,W/C) (FIM): 5 Sit to Lying (QC): 6 Lying-Sitting on Side/Bed(QC): 6 Sit to Stand (QC): 4 Rollin Roll Left to Right (QC): 6 Chair/Vel-qj-Pljit Xfer(QC): 4 Car Transfer (QC): 4 Gait (FIM): 5 Distance: 200' Walk 10 feet (QC): 4 Walk 10ft-Uneven Surface(QC): 4 Walk 50ft with 2 Turns (QC): 4 Walk 150 ft (QC): 4 Gait Level of Assist: 5 Gait Assistive Device: FWW Stairs (FIM): 2 # of Steps: 4 1 Step (curb) (QC): 4 4 Steps (QC): 4 12 Steps (QC): 88 Stairs Level Of Assist: 4 (CGA) Picking up an Object (QC): 4 PT Plan Treatment/Plan Treatment Plan: Continue Plan of Care Treatment Plan: Bed Mobility, Education, Functional Activity Boogie, Functional Strength, Group Therapy, Gait, Safety, Therapeutic Exercise, Transfers Treatment Duration: Jun 10, 2016 Visits Per Week: 10-11 Minutes/Day (M-F): 60-90 Minutes/Day (Sat/Lam): 15-30 Time/GCodes Time In: 725 Time Out: 825 Total Billed Treatment Time: 60 Total Billed Treatment 1 visit GT x 2 30 min EX x 2 30 min ARJUN JOY PT May 21, 2016 08:26
--- NOTE | 2016-05-21 08:55 | PM & R (SOAP) Progress Note ---
Subjective Subjective/Events-last exam Patient was seen on unit this AM Patient Min assist for transfers CGA for ambulation with Walker Speech improving Objective Exam Last Set of Vital Signs Vital Signs Date Time Temp Pulse Resp B/P Pulse Ox O2 Delivery O2 Flow Rate FiO2 05/21/16 06:00 97.9 80 18 135/84 96 Room Air Capillary Refill : I&O Intake and Output 05/21/16 00:00 Intake Total 200 ml Balance 200 ml Intake Oral 200 ml # Voids 4 General: Alert, Cooperative, No Acute Distress HEENT: Atraumatic, PERRLA, EOMI, Mucous Memb Moist/[place], Other ([place]) Neck: Supple, No JVD Lungs: Clear to Auscultation Heart: Regular Rate Abdomen: Normal Bowel Sounds, Soft, No Tenderness Extremities: No Edema Neuro: Other (left HP with hip flex 3+/5 Knee flex/ext4/5 and Ankle dorsiflexion 4-/5 left shoulder 3+/5 distal 4/5 rt side Functional strength) Results Lab Laboratory Tests 05/20/16 05:08: Alanine Aminotransferase (ALT/SGPT) 15, Albumin 3.7, Alkaline Phosphatase 81, Anion Gap 8, Aspartate Amino Transf (AST/SGOT) 12, BUN/Creatinine Ratio 19, Basophils # (Auto) 0.0, Basophils (%) (Auto) 0, Blood Urea Nitrogen 16, Calcium Level 8.9, Carbon Dioxide Level 25, Chloride Level 104, Creatinine 0.85, Eosinophils # (Auto) 0.5H, Eosinophils (%) (Auto) 7, Estimat Glomerular Filtration Rate > 60, Glucose Level 103, Hematocrit 38L, Hemoglobin 13.2L, Lymphocytes # (Auto) 1.5, Lymphocytes (%) (Auto) 21, Mean Corpuscular Hemoglobin 29, Mean Corpuscular Hemoglobin Concent 35, Mean Corpuscular Volume 84, Mean Platelet Volume 10.2, Monocytes # (Auto) 0.7, Monocytes (%) (Auto) 11, Neutrophils # (Auto) 4.2, Neutrophils (%) (Auto) 61, Platelet Count 157, Potassium Level 3.8, Red Blood Count 4.49, Red Cell Distribution Width 13.3, Sodium Level 137, Total Bilirubin 0.8, Total Protein 5.7L, White Blood Count 6.8 Assessment/Plan Assessment 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
[2016-05-21] MEDS: FAMOTIDINE 20 MG (PEPCID) TABLET PO SCH ×2 (09:59→21:30)
[2016-05-21] MEDS: ASPIRIN E.C. 325 MG (ECOTRIN) TABLET PO SCH (09:59)
[2016-05-21] MEDS: VALSARTAN 80 MG (DIOVAN) TAB PO SCH (09:59)
[2016-05-21] MEDS: VITAMIN D3 5,000 UNITS (CHOLECALCIFEROL ) CAPSULE PO SCH (09:59)
[2016-05-21] MEDS: HYDROCHLOROTHIAZIDE 25 MG (HCTZ) TAB PO SCH (10:00)
--- NOTE | 2016-05-21 10:10 | Occupational Ther Daily Note ---
OT Current Status-Daily Note Subjective No pain reported. Appearance Pt. up in chair. States that he is "really tired." Agreed to spongebathe instead of shower this date. Mental Status/Objective Patient Orientation: Person, Place, Time, Situation Functional [place] Measure 0=Not Assessed/NA 4=Minimal Assistance 1=Total Assistance 5=Supervision or Setup 2=Maximal Assistance 6=Modified [place] 3=Moderate Assistance 7=Complete [place] ADL-Treatment Functional [place] Measure 0=Not Assessed/NA 4=Minimal Assistance 1=Total Assistance 5=Supervision or Setup 2=Maximal Assistance 6=Modified [place] 3=Moderate Assistance 7=Complete IndependenceIRFPAI Quality Coding Scale 6 Independent with activity with or without an assistive device 5 Patient requires set up or clean up by helper. Patient completes activity by themselves 4 Supervision or touching assist (CGA). [place] provide cues , steadying assist 3 The helper provides less than half the effort to complete the activity 2 The helper provides more than half the effort to complete the activity 1 Dependent. The helper does all the effort to complete an activity 7 Patient refused to complete or attempt activity 9 The patient did not perform the activity before the current illness or injury 88 Not attempted due to Medical conditions or safety concerns Bathing (FIM): 4 (Pt. requires constant cues and min assist in stance for balance while he is washing rear [place] area.) Upper Body (FIM): 5 Lower Body Dressing (FIM): 4 (Pt. requires increased time to thread feet through brief and pants. Min assist in stance to balance to pull them up. Is able to don socks seated.) Transfers (B, C, W/C) (FIM): 4 (Pt. requires min assist for balance to stand and maintain standing balance in chair.) Other Treatment After ADLs, pt. agrees to complete bilateral UE exercises. Tolerates red theraband and yellow therapy sponge to increase overall strength for daily tasks. Pt. completed 20 bilateral squeezes with yellow therapy sponge, and 15 reps x 3 exercises in all planes with red theraband. Required mulitple cues, as pt. would begin doing them a different way. All needs met up in chair after treatment. Alarm set and call light in place. Education OT Patient Education: Exercise program, Modified ADL techniques, Progress toward Goal/Update tx plan, Purpose of tx/functional activities, Reviewed precautions, Rehab process, Transfer techniques Teaching Recipient: Patient Teaching Methods: Demonstration, Discussion Response to Teaching: Verbalize Understanding, Return Demonstration OT Short Term Goals Short Term Goals Time Frame: May 27, 2016 Eating(FIM): 5 Grooming(FIM): 5 Bathing(FIM): 5 Upper Body Dressing(FIM): 5 Lower Body Dressing(FIM): 4 Toileting(FIM): 4 Transfers (B,C,W/C) (FIM): 4 (CGA) Toilet/Commode Transfer(FIM): 5 Shower Transfer(FIM): 5 Additional Short Term Goals: 1-Demonstrate ADL Tasks, 2-Verbalize Understanding , 3-ImproveStrength/Boogie 1=Demonstrate adherence to instructed precautions during ADL tasks. 2=Patient will verbalize/demonstrate understanding of assistive devices/ modifications for ADL. 3=Patient will improve strength/tolerance for activity to enable patient to perform ADL's. OT Motor Rebuilder Goals Motor Rebuilder Goals Time Frame: Jun 10, 2016 Eating (FIM): 6 Eating (QC): 6 Oral Hygiene (QC): 5 Grooming(FIM): 5 Bathing(FIM): 5 Shower/Bathe Self (QC): 5 Upper Body Dressing(FIM): 5 Upper Body Dressing (QC): 5 Lower Body Dressing(FIM): 5 Lower Body Dressing (QC): 5 On/Off Footwear (QC): 5 Toileting(FIM): 6 Toileting Hygiene (QC): 6 Transfers (B,C,W/C) (FIM): 5 Toilet/Commode Transfer(FIM): 5 Toilet/Commode Transfer (QC): 5 Shower Transfer(FIM): 4 Comprehension(FIM): 4 Expression (FIM): 4 Social Interaction(FIM): 5 Problem Solving(FIM): 4 Memory(FIM): 4 Additional Goals: 1-Demonstrate ADL Tasks, 2-Verbalize Understanding, 3- ImproveStrength/Boogie 1=Demonstrate adherence to instructed precautions during ADL tasks. 2=Patient will verbalize/demonstrate understanding of assistive devices/ modifications for ADL. 3=Patient will improve strength/tolerance for activity to enable patient to perform ADL's. OT Education/Plan Problem List/Assessment Assessment: Decreased Activ Tolerance, Decreased Safety Aware, Decreased UE Strength, Dependent Transfers, Impaired Bed Mobility, Impaired Funct Balance, Impaired I ADL's, Impaired Self-Care Skills, Restricted Funct UE ROM Discharge Recommendations Plan/Recommendations: Continue POC Therapy D/C Recommendations: Home w/ Family Support, Occupational Therapy Home Care, Scheduled Assistance Treatment Plan/Plan of Care Treatment,Training & Education: Yes Patient would benefit from OT for education, treatment and training to promote independence in ADL's, mobility, safety and/or upper extremity function for ADL' s. Plan of Care: ADL Retraining, Caregiver Training, Functional Mobility, UE Funct Exercise/Act Treatment Duration: Jun 10, 2016 Visits Per Week: 10-12 Minutes/Day (M-F): 60-90 Minutes/Day (Sat/Lam): 15-30 Agreement: Yes Rehab Potential: Fair Time/GCodes Start Time: 09:15 Stop Time: 10:00 Total Time Billed (hr/min): 45 Billed Treatment Time 1, ADL x 30minutes, EX x 15minutes SAQIB ADAM OT May 21, 2016 10:10
--- NOTE | 2016-05-21 12:15 | Speech Therapy Daily Note ---
Speech Daily Progress Note Subjective The patient was seated upright in recliner upon entrance. The patient greeted the clinician appropriately and agreed to participate in the speech and language treatment session on this date. Objective Picturing Naming: The patient demonstrated 95% accuracy (independently) with picture naming with zero productions of paraphasias. The patient did state "rain " for umbrella, however, self-corrected without the aid of the clinician. Orientation: Upon entrance, the patient was unable to state the month, year, or day of week. The clinician instructed the patient where the external aid was present in his room (white board). At the close of the session, the patient was able to state the above information, independently. Picture Description: The patient was provided images depicting places in his environment. The patient was asked to describe the photograph to the clinician. The patient demonstrated moderate word-finding errors throughout the tasks, as well as, intermittent paraphasias of single words. The patient completed the task with less than 50% accuracy and maximum clinician verbal cueing. Assessment Assessment Current Status: Good Progress Treatment Plan Continue Plan of Care Communication Comprehension: 3 Expression: 2 Social Cognition Social Interaction: 3 Problem Solvin Memory: 2 Speech Short Term Goals Short Term Goals Short Term Goals 1. The patient will demonstrated 80% accuracy with repetition of functional phrases. 2. The patient will demonstrate 80% accuracy with functional safety problem solving, independently. 3. The patient will demonstrate 80% accuracy with repetition of single words ( for transition into functional phrases). 4. The patient will demonstrate 80% accuracy with simple yes/no questions. Time Frame-STG: Two Weeks Speech Correction Goals Correction Goals 1. The patient will demonstrated improved expressive communication for increased function and safety with ADL's in the least restrictive setting. Time Frame: Six Weeks Comprehension: 4 Expression: 4 Social Interaction: 5 Problem Solvin Memory: 4 Speech-Plan Treatment Plan Speech Therapy Treatment Plan: Continue Plan of Care Treatment Duration: Jul 01, 2016 # of days/week Four to Five Visits Per Week: Four to Five Minutes/Day (M-F): 30 Rehab Potential: Fair Safety Risks/Education Teaching Recipient: Patient Teaching Methods: Discussion Response to Teaching: Verbalize Understanding, Return Demonstration, Reinforcement Needed Education Topics Provided: Orientation Strategies Time Speech Therapy Time In: 11:30 Speech Therapy Time Out: 12:00 Total Billed Time: 30 Billed Treatment Time 1, SUE CARPENTER May 21, 2016 12:15
--- NOTE | 2016-05-21 15:04 | Therapy Group Daily Note ---
Therapy Daily Group Note Patient Education Topic Exercises, Other List Below Exercises LE Seated Exercise, UE Exercise Other/Notes Pt ambulated to [facility] where he participated socially by introducing self, city currently living in, and describing what he does for exercise. Pt was able to correctly respond back when asked questions. Pt demonstrated memory/recall when matching different pictures. Pt ambulated, FWW, CGA back to room. Pt lest sitting in recliner. Call light in hand. All needs met. Start Time: 13:00 Stop Time: 14:30 Total Billed Treatment Time: 90 Total Billed Treatment 1-GRP RAAD GARCIA May 21, 2016 15:04
[2016-05-21 18:04] VITALS: BP 108/67
[2016-05-21] MEDS: SIMvastatin 40 MG (ZOCOR) TAB PO SCH (21:30)
[2016-05-22 06:00] VITALS: BP 125/75
[2016-05-22] MEDS: PANTOPRAZOLE 40 MG (PROTONIX) TAB PO SCH (06:29)
[2016-05-22] MEDS: SUCRALFATE 1 GM (CARAFATE) TAB PO SCH ×4 (06:29→20:57)
[2016-05-22] MEDS: FERROUS SULF 325 MG (IRON) TAB PO SCH (06:29)
[2016-05-22] MEDS: ASPIRIN E.C. 325 MG (ECOTRIN) TABLET PO SCH (09:18)
[2016-05-22] MEDS: FAMOTIDINE 20 MG (PEPCID) TABLET PO SCH ×2 (09:18→20:57)
[2016-05-22] MEDS: VALSARTAN 80 MG (DIOVAN) TAB PO SCH (09:19)
[2016-05-22] MEDS: VITAMIN D3 5,000 UNITS (CHOLECALCIFEROL ) CAPSULE PO SCH (09:19)
[2016-05-22] MEDS: HYDROCHLOROTHIAZIDE 25 MG (HCTZ) TAB PO SCH (09:19)
[2016-05-22] MEDS: CLOPIDOGREL 75 MG (PLAVIX) TABLET PO SCH (09:19)
--- NOTE | 2016-05-22 10:38 | Occupational Ther Daily Note ---
OT Current Status-Daily Note Subjective "OK, but I don't know where my clothes are." Pain Numeric Pain Scale: 0-No Pain Appearance Patient seated in chair at side of the bed. Had just finished PT. Dressed in slippy socks and gowns. Mental Status/Objective Patient Orientation: Person, Place, Situation Functional [place] Measure 0=Not Assessed/NA 4=Minimal Assistance 1=Total Assistance 5=Supervision or Setup 2=Maximal Assistance 6=Modified [place] 3=Moderate Assistance 7=Complete [place] ADL-Treatment Agreed to shower after we were able to locate clean clothing for him to wear. Entered shower with roller walker, required verbal cues to orient self to enter shower stall. Seated self independently on seat. Was given hand held shower head and instructed to use baby shampoo as soap for hair and body. Upon observation, he was not using soap and not washing entire body accept juan luis area. Required verbal cues to sequence the activity and to use soap. OT assisted with back, bottom and the back of the legs. Patient bathed front, arms , underarms, juan luis area and feet with cue to do so. Needed cues for drying self. Dressed self in shirt and sweat pants. Required mod assist to don sweat pants, placing left leg first. Required assist to place right foot/leg into pants. He donned the overhead shirt independently. Upon standing to walk back to the bedroom, he had tendency to lean backwards with no attempt to self correct himself. Used roller walker to ambulate to chair, and don slippy socks with moderate assist due to toe nails sticking. Completed shaving with electric razor , seated, when instructed to do so with good skill. Refused to do dentures. Functional [place] Measure 0=Not Assessed/NA 4=Minimal Assistance 1=Total Assistance 5=Supervision or Setup 2=Maximal Assistance 6=Modified [place] 3=Moderate Assistance 7=Complete IndependenceIRFPAI Quality Coding Scale 6 Independent with activity with or without an assistive device 5 Patient requires set up or clean up by helper. Patient completes activity by themselves 4 Supervision or touching assist (CGA). [place] provide cues , steadying assist 3 The helper provides less than half the effort to complete the activity 2 The helper provides more than half the effort to complete the activity 1 Dependent. The helper does all the effort to complete an activity 7 Patient refused to complete or attempt activity 9 The patient did not perform the activity before the current illness or injury 88 Not attempted due to Medical conditions or safety concerns Other Treatment Agreed to participating in exercise/endurance work for the LUE and hand. Completed mulitiple reps of moderate resistive theraband for left shoulder, shoulder girdle and elbow. Used minimal resistive sponge for gross grasp work and pinch works as well as manipulation in the left hand. Required numerous rest breaks during entire treatment due to fatigue. Patient read menu to therapist and was able to identify he wanted pizza for lunch. Shared with me the picture of his grandson and daughter, telling me who they were and where they currently live. If he speaks slowly, speech is understood. Education OT Patient Education: Modified ADL techniques Teaching Recipient: Patient Teaching Methods: Demonstration Response to Teaching: Verbalize Understanding OT Short Term Goals Short Term Goals Time Frame: May 27, 2016 Eating(FIM): 5 Grooming(FIM): 5 Bathing(FIM): 5 Upper Body Dressing(FIM): 5 Lower Body Dressing(FIM): 4 Toileting(FIM): 4 Transfers (B,C,W/C) (FIM): 4 (CGA) Toilet/Commode Transfer(FIM): 5 Shower Transfer(FIM): 5 Additional Short Term Goals: 1-Demonstrate ADL Tasks, 2-Verbalize Understanding , 3-ImproveStrength/Boogie 1=Demonstrate adherence to instructed precautions during ADL tasks. 2=Patient will verbalize/demonstrate understanding of assistive devices/ modifications for ADL. 3=Patient will improve strength/tolerance for activity to enable patient to perform ADL's. OT Consumer Lending Manager Goals Consumer Lending Manager Goals Time Frame: Jun 10, 2016 Eating (FIM): 6 Eating (QC): 6 Oral Hygiene (QC): 5 Grooming(FIM): 5 Bathing(FIM): 5 Shower/Bathe Self (QC): 5 Upper Body Dressing(FIM): 5 Upper Body Dressing (QC): 5 Lower Body Dressing(FIM): 5 Lower Body Dressing (QC): 5 On/Off Footwear (QC): 5 Toileting(FIM): 6 Toileting Hygiene (QC): 6 Transfers (B,C,W/C) (FIM): 5 Toilet/Commode Transfer(FIM): 5 Toilet/Commode Transfer (QC): 5 Shower Transfer(FIM): 4 Comprehension(FIM): 4 Expression (FIM): 4 Social Interaction(FIM): 5 Problem Solving(FIM): 4 Memory(FIM): 4 Additional Goals: 1-Demonstrate ADL Tasks, 2-Verbalize Understanding, 3- ImproveStrength/Boogie 1=Demonstrate adherence to instructed precautions during ADL tasks. 2=Patient will verbalize/demonstrate understanding of assistive devices/ modifications for ADL. 3=Patient will improve strength/tolerance for activity to enable patient to perform ADL's. OT Education/Plan Discharge Recommendations Plan/Recommendations: Continue POC Treatment Plan/Plan of Care Patient would benefit from OT for education, treatment and training to promote independence in ADL's, mobility, safety and/or upper extremity function for ADL' s. Plan of Care: ADL Retraining, Caregiver Training, Functional Mobility, UE Funct Exercise/Act Treatment Duration: Jun 10, 2016 Visits Per Week: 10-12 Minutes/Day (M-F): 60-90 Minutes/Day (Sat/Lam): 15-30 Agreement: Yes Rehab Potential: Fair Time/GCodes Start Time: 09:05 Stop Time: 10:35 Total Time Billed (hr/min): 90 Billed Treatment Time Visit, ADL x 4, Ex x 1 G Codes Necessary: No CARINA GRIMALDO OT May 22, 2016 10:38
--- NOTE | 2016-05-22 12:34 | Physical Therapy Daily Note ---
PT Daily Note-Current Subjective Pt is having difficulty communicating today due to expressive aphasia. No pain reported. Transfers Functional [place] Measure 0=Not Assessed/NA 4=Minimal Assistance 1=Total Assistance 5=Supervision or Setup 2=Maximal Assistance 6=Modified [place] 3=Moderate Assistance 7=Complete IndependenceIRFPAI Quality Coding Scale 6 Independent with activity with or without an assistive device 5 Patient requires set up or clean up by helper. Patient completes activity by themselves 4 Supervision or touching assist (CGA). [place] provide cues , steadying assist 3 The helper provides less than half the effort to complete the activity 2 The helper provides more than half the effort to complete the activity 1 Dependent. The helper does all the effort to complete an activity 7 Patient refused to complete or attempt activity 9 The patient did not perform the activity before the current illness or injury 88 Not attempted due to Medical conditions or safety concerns Transfers (B, C, W/C) (FIM): 5 Scootin Rollin Roll Left to Right (QC): 5 Supine to/from Sit: 5 Sit to/from Stand: 5 Sit to Lying (QC): 5 Sit to Stand (QC): 5 Chair/Kas-sx-Hmjxj Xfer(QC): 5 Bed to/from Chair: 5 Gait Training Does the Patient Walk?: Yes Gait (FIM): 5 Distance: 250ft Gait Level of Assist: 5 Gait Persons Needed: 1 Gait Assistive Device: FWW Wheelchair Training Does the Pt Use a Wheelchair?: No Exercises Supine Ex: LE Protocol Supine Reps: [address] Ex=Flex, Abd, Ext, Marching, Sit to Stand, Weight shifts Standing Reps: 15 Assessment Current Status: Good Progress Good understanding of directions, and good stability throughout the treatment. PT Short Term Goals Short Term Goals Time Frame: May 27, 2016 Transfers (B,C,W/C) (FIM): 4 (CGA) Gait (FIM): 4 Gait Distance Comment: 150' Gait Level of Assist: 4 (CGA) Gait Assistive Device: FWW PT Half-Way Goals Microarray Analyst Goals PT Microarray Analyst Goals Time Frame: Jun 10, 2016 Transfers (B,C,W/C) (FIM): 5 Sit to Lying (QC): 6 Lying-Sitting on Side/Bed(QC): 6 Sit to Stand (QC): 4 Rollin Roll Left to Right (QC): 6 Chair/Clx-kt-Zjhhf Xfer(QC): 4 Car Transfer (QC): 4 Gait (FIM): 5 Distance: 200' Walk 10 feet (QC): 4 Walk 10ft-Uneven Surface(QC): 4 Walk 50ft with 2 Turns (QC): 4 Walk 150 ft (QC): 4 Gait Level of Assist: 5 Gait Assistive Device: FWW Stairs (FIM): 2 # of Steps: 4 1 Step (curb) (QC): 4 4 Steps (QC): 4 12 Steps (QC): 88 Stairs Level Of Assist: 4 (CGA) Picking up an Object (QC): 4 PT Plan Treatment/Plan Treatment Plan: Continue Plan of Care Treatment Plan: Bed Mobility, Education, Functional Activity Boogie, Functional Strength, Group Therapy, Gait, Safety, Therapeutic Exercise, Transfers Treatment Duration: Jun 10, 2016 Visits Per Week: 10-11 Minutes/Day (M-F): 60-90 Minutes/Day (Sat/Lam): 15-30 Time/GCodes Time In: 0815 Time Out: 0900 Total Billed Treatment Time: 45 Total Billed Treatment 1, ex 30', gt 15' CHRISTOPH BOTELLO PT May 22, 2016 12:34
--- NOTE | 2016-05-22 12:36 | Physical Therapy Daily Note ---
PT Daily Note-Current Subjective Pt ready for therapy, no issues. Transfers Functional [place] Measure 0=Not Assessed/NA 4=Minimal Assistance 1=Total Assistance 5=Supervision or Setup 2=Maximal Assistance 6=Modified [place] 3=Moderate Assistance 7=Complete IndependenceIRFPAI Quality Coding Scale 6 Independent with activity with or without an assistive device 5 Patient requires set up or clean up by helper. Patient completes activity by themselves 4 Supervision or touching assist (CGA). [place] provide cues , steadying assist 3 The helper provides less than half the effort to complete the activity 2 The helper provides more than half the effort to complete the activity 1 Dependent. The helper does all the effort to complete an activity 7 Patient refused to complete or attempt activity 9 The patient did not perform the activity before the current illness or injury 88 Not attempted due to Medical conditions or safety concerns Transfers (B, C, W/C) (FIM): 5 Gait Training Does the Patient Walk?: Yes Gait (FIM): 5 Distance: 200ft x2 Gait Level of Assist: 5 Gait Persons Needed: 1 Gait Assistive Device: FWW Exercises Standin way Ex=Flex, Abd, Ext, Marching, Sit to Stand, Weight shifts NuStep Minutes: 10 NuStep Workload: 4 Assessment Good activity tolerance. More difficulty expressing speech. PT Short Term Goals Short Term Goals Time Frame: May 27, 2016 Transfers (B,C,W/C) (FIM): 4 (CGA) Gait (FIM): 4 Gait Distance Comment: 150' Gait Level of Assist: 4 (CGA) Gait Assistive Device: FWW PT Operations Team Leader Goals Operations Team Leader Goals PT Nursing Home Goals Time Frame: Jun 10, 2016 Transfers (B,C,W/C) (FIM): 5 Sit to Lying (QC): 6 Lying-Sitting on Side/Bed(QC): 6 Sit to Stand (QC): 4 Rollin Roll Left to Right (QC): 6 Chair/Hgc-fg-Vteqq Xfer(QC): 4 Car Transfer (QC): 4 Gait (FIM): 5 Distance: 200' Walk 10 feet (QC): 4 Walk 10ft-Uneven Surface(QC): 4 Walk 50ft with 2 Turns (QC): 4 Walk 150 ft (QC): 4 Gait Level of Assist: 5 Gait Assistive Device: FWW Stairs (FIM): 2 # of Steps: 4 1 Step (curb) (QC): 4 4 Steps (QC): 4 12 Steps (QC): 88 Stairs Level Of Assist: 4 (CGA) Picking up an Object (QC): 4 PT Plan Treatment/Plan Treatment Plan: Continue Plan of Care Treatment Plan: Bed Mobility, Education, Functional Activity Boogie, Functional Strength, Group Therapy, Gait, Safety, Therapeutic Exercise, Transfers Treatment Duration: Jun 10, 2016 Visits Per Week: 10-11 Minutes/Day (M-F): 60-90 Minutes/Day (Sat/Lam): 15-30 Time/GCodes Time In: 1115 Time Out: 1200 Total Billed Treatment Time: 45 Total Billed Treatment 1, ex 30', gt 15' CHRISTOPH BOTELLO PT May 22, 2016 12:36
[2016-05-22 18:13] VITALS: BP 105/67
[2016-05-22] MEDS: SIMvastatin 40 MG (ZOCOR) TAB PO SCH (20:57)
[2016-05-23] MEDS: FERROUS SULF 325 MG (IRON) TAB PO SCH (06:20)
[2016-05-23] MEDS: PANTOPRAZOLE 40 MG (PROTONIX) TAB PO SCH (06:20)
[2016-05-23] MEDS: SUCRALFATE 1 GM (CARAFATE) TAB PO SCH ×4 (06:20→20:48)
[2016-05-23 06:47] VITALS: BP 170/88
[2016-05-23] MEDS: HYDROCHLOROTHIAZIDE 25 MG (HCTZ) TAB PO SCH (09:02)
[2016-05-23] MEDS: CLOPIDOGREL 75 MG (PLAVIX) TABLET PO SCH (09:03)
[2016-05-23] MEDS: VALSARTAN 80 MG (DIOVAN) TAB PO SCH (09:03)
[2016-05-23] MEDS: ASPIRIN E.C. 325 MG (ECOTRIN) TABLET PO SCH (09:03)
[2016-05-23] MEDS: FAMOTIDINE 20 MG (PEPCID) TABLET PO SCH ×2 (09:03→20:48)
[2016-05-23] MEDS: VITAMIN D3 5,000 UNITS (CHOLECALCIFEROL ) CAPSULE PO SCH (09:03)
[2016-05-23 09:06] VITALS: BP 125/65
[2016-05-23 18:00] VITALS: BP 197/83
[2016-05-23 20:41] VITALS: BP 172/82
[2016-05-23] MEDS ORDERED: amLODIPine 5 MG (NORVASC) TAB PO ONE (20:45)
[2016-05-23] MEDS: SIMvastatin 40 MG (ZOCOR) TAB PO SCH (20:48)
[2016-05-24 05:32] VITALS: BP 159/79
[2016-05-24] MEDS: FERROUS SULF 325 MG (IRON) TAB PO SCH (06:11)
[2016-05-24] MEDS: SUCRALFATE 1 GM (CARAFATE) TAB PO SCH ×4 (06:11→20:14)
[2016-05-24] MEDS: PANTOPRAZOLE 40 MG (PROTONIX) TAB PO SCH (06:11)
[2016-05-24 07:42] VITALS: BP 116/69
[2016-05-24] MEDS: CLOPIDOGREL 75 MG (PLAVIX) TABLET PO SCH (07:46)
[2016-05-24] MEDS: VALSARTAN 80 MG (DIOVAN) TAB PO SCH (07:46)
[2016-05-24] MEDS: HYDROCHLOROTHIAZIDE 25 MG (HCTZ) TAB PO SCH (07:47)
[2016-05-24] MEDS: ASPIRIN E.C. 325 MG (ECOTRIN) TABLET PO SCH (07:47)
[2016-05-24] MEDS: VITAMIN D3 5,000 UNITS (CHOLECALCIFEROL ) CAPSULE PO SCH (07:47)
[2016-05-24] MEDS: FAMOTIDINE 20 MG (PEPCID) TABLET PO SCH ×2 (07:47→20:14)
--- NOTE | 2016-05-24 08:58 | Physical Therapy Daily Note ---
PT Daily Note-Current Subjective Patient in recliner pre tx, agrees to PT, will need to get dressed. Pain Numeric Pain Scale: 0-No Pain Appearance Patient in bed post tx to try to take a nap before OT. Has nurse call, phone, tray, bed alarm, all needs met. Mental Status Patient Orientation: Person, Place, Situation Transfers Functional [place] Measure 0=Not Assessed/NA 4=Minimal Assistance 1=Total Assistance 5=Supervision or Setup 2=Maximal Assistance 6=Modified [place] 3=Moderate Assistance 7=Complete IndependenceIRFPAI Quality Coding Scale 6 Independent with activity with or without an assistive device 5 Patient requires set up or clean up by helper. Patient completes activity by themselves 4 Supervision or touching assist (CGA). [place] provide cues , steadying assist 3 The helper provides less than half the effort to complete the activity 2 The helper provides more than half the effort to complete the activity 1 Dependent. The helper does all the effort to complete an activity 7 Patient refused to complete or attempt activity 9 The patient did not perform the activity before the current illness or injury 88 Not attempted due to Medical conditions or safety concerns Transfers (B, C, W/C) (FIM): 4 Scootin Rollin Supine to/from Sit: 6 Sit to/from Stand: 4 Bed to/from Chair: 4 Patient needs CGA during transfers but performs bed mobility with mod I. Needs cues for safety and hand placement, will often try to pull on walker when standing. Gait Training Gait (FIM): 4 Distance: 250' Gait Level of Assist: 4 (CGA) Gait Persons Needed: 1 Gait Assistive Device: FWW patient can ambulate in a strait line with SBA but needs CGA with any turning, also he does not have much foot clearance during ambulation. Stair Training Stair Training: Handrails/: 2 handrails Stairs (FIM): 2 #of Steps: 8 Stairs: Pattern: Step to Level of Assist: 4 (CGA) Patient needs cues for safety and step pattern. He tends to lean backward during stairs but he did not have a LOB. Exercises alternating LAQ for 5 min with 2# ankle weights, patient could not perform this sitting on the edge of the mat because he would lean backwards, he transferred into a chair so he had back support and it was much better but he still needed to scoot back occasionally because he would push so hard on the back of the chair that he would slide his bottom out NuStep Minutes: 15 NuStep Workload: 4 Treatments bed mobility and transfers, ambulation, functional strengthening, stair training , patient was also dressed at the beginning of tx Assessment Current Status: Fair Progress improved endurance PT Short Term Goals Short Term Goals Time Frame: May 27, 2016 Transfers (B,C,W/C) (FIM): 4 (CGA) Gait (FIM): 4 Gait Distance Comment: 150' Gait Level of Assist: 4 (CGA) Gait Assistive Device: FWW PT Mcc Goals Mcc Goals PT Mcc Goals Time Frame: Jun 10, 2016 Transfers (B,C,W/C) (FIM): 5 Sit to Lying (QC): 6 Lying-Sitting on Side/Bed(QC): 6 Sit to Stand (QC): 4 Rollin Roll Left to Right (QC): 6 Chair/Bfy-gc-Iymyg Xfer(QC): 4 Car Transfer (QC): 4 Gait (FIM): 5 Distance: 200' Walk 10 feet (QC): 4 Walk 10ft-Uneven Surface(QC): 4 Walk 50ft with 2 Turns (QC): 4 Walk 150 ft (QC): 4 Gait Level of Assist: 5 Gait Assistive Device: FWW Stairs (FIM): 2 # of Steps: 4 1 Step (curb) (QC): 4 4 Steps (QC): 4 12 Steps (QC): 88 Stairs Level Of Assist: 4 (CGA) Picking up an Object (QC): 4 PT Plan Problem List Problem List: Activity Tolerance, Functional Strength, Safety, Balance, Gait, Transfer, Bed Mobility Treatment/Plan Treatment Plan: Continue Plan of Care Treatment Plan: Bed Mobility, Education, Functional Activity Boogie, Functional Strength, Group Therapy, Gait, Safety, Therapeutic Exercise, Transfers Treatment Duration: Jun 10, 2016 Visits Per Week: 10-11 Minutes/Day (M-F): 60-90 Minutes/Day (Sat/Lam): 15-30 Safety Risks/Education Patient Education: Gait Training, Transfer Techniques, Steps, Safety Issues Teaching Recipient: Patient Teaching Methods: Demonstration, Discussion Response to Teaching: Reinforcement Needed Time/GCodes Time In: 800 Time Out: 900 Total Billed Treatment Time: 60 Total Billed Treatment 1 visit GT 30 min EX 20 min FA 10 min KELLEN ROY PT May 24, 2016 08:58
--- NOTE | 2016-05-24 11:09 | Occupational Ther Daily Note ---
OT Current Status-Daily Note Subjective No pain reported. Appearance Pt. is up in chair. Agrees to work with therapy. Declines showering this date , but agrees to come to therapy gym. PT has assisted him with clean clothing this date, and nurse aide confirms that she helped him clean up earlier, as he had been incontinent. Mental Status/Objective Patient Orientation: Unable to Assess Functional [place] Measure 0=Not Assessed/NA 4=Minimal Assistance 1=Total Assistance 5=Supervision or Setup 2=Maximal Assistance 6=Modified [place] 3=Moderate Assistance 7=Complete [place] ADL-Treatment Functional [place] Measure 0=Not Assessed/NA 4=Minimal Assistance 1=Total Assistance 5=Supervision or Setup 2=Maximal Assistance 6=Modified [place] 3=Moderate Assistance 7=Complete IndependenceIRFPAI Quality Coding Scale 6 Independent with activity with or without an assistive device 5 Patient requires set up or clean up by helper. Patient completes activity by themselves 4 Supervision or touching assist (CGA). [place] provide cues , steadying assist 3 The helper provides less than half the effort to complete the activity 2 The helper provides more than half the effort to complete the activity 1 Dependent. The helper does all the effort to complete an activity 7 Patient refused to complete or attempt activity 9 The patient did not perform the activity before the current illness or injury 88 Not attempted due to Medical conditions or safety concerns Transfers (B, C, W/C) (FIM): 5 (Pt. requires SBA with all transfers.) Other Treatment Pt. up in chair. Declined showering. Already dressed. Agreed to ambulate to therapy gym. Ambulated with SBA to therapy gym. Donned 1 lb. wrist weights and completed arm exercises with arm arc, nut/bolt activity, and pegs. Worked on fine motor coordination and strengthening tasks to improve ability to perform UE ADLs. Pt. still has difficulty communicating at times. Overall, tolerated tasks well once they were explained to him. Did require several cues to sequence and even begin the task. Ambulated back to room. All needs met. Tolerated treatment overall well. Education OT Patient Education: Exercise program, Modified ADL techniques, Progress toward Goal/Update tx plan, Purpose of tx/functional activities, Reviewed precautions, Rehab process, Transfer techniques Teaching Recipient: Patient Teaching Methods: Demonstration, Discussion Response to Teaching: Verbalize Understanding, Return Demonstration OT Short Term Goals Short Term Goals Time Frame: May 27, 2016 Eating(FIM): 5 Grooming(FIM): 5 Bathing(FIM): 5 Upper Body Dressing(FIM): 5 Lower Body Dressing(FIM): 4 Toileting(FIM): 4 Transfers (B,C,W/C) (FIM): 4 (CGA) Toilet/Commode Transfer(FIM): 5 Shower Transfer(FIM): 5 Additional Short Term Goals: 1-Demonstrate ADL Tasks, 2-Verbalize Understanding , 3-ImproveStrength/Boogie 1=Demonstrate adherence to instructed precautions during ADL tasks. 2=Patient will verbalize/demonstrate understanding of assistive devices/ modifications for ADL. 3=Patient will improve strength/tolerance for activity to enable patient to perform ADL's. OT Shotblast Equipment Operator Goals Shotblast Equipment Operator Goals Time Frame: Jun 10, 2016 Eating (FIM): 6 Eating (QC): 6 Oral Hygiene (QC): 5 Grooming(FIM): 5 Bathing(FIM): 5 Shower/Bathe Self (QC): 5 Upper Body Dressing(FIM): 5 Upper Body Dressing (QC): 5 Lower Body Dressing(FIM): 5 Lower Body Dressing (QC): 5 On/Off Footwear (QC): 5 Toileting(FIM): 6 Toileting Hygiene (QC): 6 Transfers (B,C,W/C) (FIM): 5 Toilet/Commode Transfer(FIM): 5 Toilet/Commode Transfer (QC): 5 Shower Transfer(FIM): 4 Comprehension(FIM): 4 Expression (FIM): 4 Social Interaction(FIM): 5 Problem Solving(FIM): 4 Memory(FIM): 4 Additional Goals: 1-Demonstrate ADL Tasks, 2-Verbalize Understanding, 3- ImproveStrength/Boogie 1=Demonstrate adherence to instructed precautions during ADL tasks. 2=Patient will verbalize/demonstrate understanding of assistive devices/ modifications for ADL. 3=Patient will improve strength/tolerance for activity to enable patient to perform ADL's. OT Education/Plan Problem List/Assessment Assessment: Decreased Activ Tolerance, Decreased UE Strength, Impaired Bed Mobility, Impaired Funct Balance, Impaired I ADL's, Impaired Self-Care Skills Discharge Recommendations Plan/Recommendations: Continue POC Therapy D/C Recommendations: Home w/ Family Support, Occupational Therapy Home Care Treatment Plan/Plan of Care Treatment,Training & Education: Yes Patient would benefit from OT for education, treatment and training to promote independence in ADL's, mobility, safety and/or upper extremity function for ADL' s. Plan of Care: ADL Retraining, Caregiver Training, Functional Mobility, UE Funct Exercise/Act Treatment Duration: Jun 10, 2016 Visits Per Week: 10-12 Minutes/Day (M-F): 60-90 Minutes/Day (Sat/Lam): 15-30 Agreement: Yes Rehab Potential: Fair Time/GCodes Start Time: 09:45 Stop Time: 10:55 Total Time Billed (hr/min): 70 Billed Treatment Time 1, EX x 30minutes, FA x 40minutes SAQIB ADAM OT May 24, 2016 11:09
--- NOTE | 2016-05-24 11:47 | Speech Therapy Daily Note ---
Speech Daily Progress Note Subjective The patient was seated upright in chair upon entrance. The patient greeted the clinician appropriately and agreed to participate in the cognitive treatment session on this date. Objective Safety Problem Solving: The patient was provided pictures depicting safety issues in a common environment. The patient was asked to identify the safety issue and provide an appropriate solution to the problem. With mild clinician cueing for complete responses, the patient demonstrated good accuracy with this task (85%). Orientation: The patient was oriented to month and year, independently. The patient used an external aid (in-room white board) for day of week and date ( independently). Assessment Assessment Current Status: Fair Progress Treatment Plan Continue Plan of Care Communication Comprehension: 3 Expression: 3 Social Cognition Social Interaction: 4 Problem Solvin Memory: 3 Speech Short Term Goals Short Term Goals Short Term Goals 1. The patient will demonstrated 80% accuracy with repetition of functional phrases. 2. The patient will demonstrate 80% accuracy with functional safety problem solving, independently. 3. The patient will demonstrate 80% accuracy with repetition of single words ( for transition into functional phrases). 4. The patient will demonstrate 80% accuracy with simple yes/no questions. Time Frame-STG: Two Weeks Speech Double Cut Sawyer Goals Custodial Goals 1. The patient will demonstrated improved expressive communication for increased function and safety with ADL's in the least restrictive setting. Time Frame: Six Weeks Comprehension: 4 Expression: 4 Social Interaction: 5 Problem Solvin Memory: 4 Speech-Plan Treatment Plan Speech Therapy Treatment Plan: Continue Plan of Care Treatment Duration: Jul 01, 2016 # of days/week Four to Five Visits Per Week: Four to Five Minutes/Day (M-F): 30 Rehab Potential: Fair Safety Risks/Education Teaching Recipient: Patient Teaching Methods: Demonstration, Discussion Response to Teaching: Return Demonstration Education Topics Provided: Use of External Aides for Orientation Time Speech Therapy Time In: 11:00 Speech Therapy Time Out: 11:30 Total Billed Time: 30 Billed Treatment Time PARAMJIT Cage ELIZABETH May 24, 2016 11:47
--- NOTE | 2016-05-24 14:02 | Occupational Ther Daily Note ---
OT Current Status-Daily Note Subjective No pain reported. Appearance Pt. agrees to come to therapy room. Mental Status/Objective Patient Orientation: Person Functional [place] Measure 0=Not Assessed/NA 4=Minimal Assistance 1=Total Assistance 5=Supervision or Setup 2=Maximal Assistance 6=Modified [place] 3=Moderate Assistance 7=Complete [place] ADL-Treatment Functional [place] Measure 0=Not Assessed/NA 4=Minimal Assistance 1=Total Assistance 5=Supervision or Setup 2=Maximal Assistance 6=Modified [place] 3=Moderate Assistance 7=Complete IndependenceIRFPAI Quality Coding Scale 6 Independent with activity with or without an assistive device 5 Patient requires set up or clean up by helper. Patient completes activity by themselves 4 Supervision or touching assist (CGA). [place] provide cues , steadying assist 3 The helper provides less than half the effort to complete the activity 2 The helper provides more than half the effort to complete the activity 1 Dependent. The helper does all the effort to complete an activity 7 Patient refused to complete or attempt activity 9 The patient did not perform the activity before the current illness or injury 88 Not attempted due to Medical conditions or safety concerns Other Treatment Pt. completed 15 minutes on armbike. Tolerated this at mod resistance to increase overall strength for daily tasks. Pt. ambulated back to room with SBA. Sat in chair and completed red theraband exercises x 3 exercises x 15 reps in all planes. Pt. requires multiple cues to sequence and complete tasks. Education OT Patient Education: Modified ADL techniques, Progress toward Goal/Update tx plan, Purpose of tx/functional activities, Reviewed precautions, Rehab process, Transfer techniques Teaching Recipient: Patient Teaching Methods: Demonstration, Discussion Response to Teaching: Verbalize Understanding, Return Demonstration OT Short Term Goals Short Term Goals Time Frame: May 27, 2016 Eating(FIM): 5 Grooming(FIM): 5 Bathing(FIM): 5 Upper Body Dressing(FIM): 5 Lower Body Dressing(FIM): 4 Toileting(FIM): 4 Transfers (B,C,W/C) (FIM): 4 (CGA) Toilet/Commode Transfer(FIM): 5 Shower Transfer(FIM): 5 Additional Short Term Goals: 1-Demonstrate ADL Tasks, 2-Verbalize Understanding , 3-ImproveStrength/Boogie 1=Demonstrate adherence to instructed precautions during ADL tasks. 2=Patient will verbalize/demonstrate understanding of assistive devices/ modifications for ADL. 3=Patient will improve strength/tolerance for activity to enable patient to perform ADL's. OT Long-Term Goals Product Mgmt Dev Manager Goals Time Frame: Jun 10, 2016 Eating (FIM): 6 Eating (QC): 6 Oral Hygiene (QC): 5 Grooming(FIM): 5 Bathing(FIM): 5 Shower/Bathe Self (QC): 5 Upper Body Dressing(FIM): 5 Upper Body Dressing (QC): 5 Lower Body Dressing(FIM): 5 Lower Body Dressing (QC): 5 On/Off Footwear (QC): 5 Toileting(FIM): 6 Toileting Hygiene (QC): 6 Transfers (B,C,W/C) (FIM): 5 Toilet/Commode Transfer(FIM): 5 Toilet/Commode Transfer (QC): 5 Shower Transfer(FIM): 4 Comprehension(FIM): 4 Expression (FIM): 4 Social Interaction(FIM): 5 Problem Solving(FIM): 4 Memory(FIM): 4 Additional Goals: 1-Demonstrate ADL Tasks, 2-Verbalize Understanding, 3- ImproveStrength/Boogie 1=Demonstrate adherence to instructed precautions during ADL tasks. 2=Patient will verbalize/demonstrate understanding of assistive devices/ modifications for ADL. 3=Patient will improve strength/tolerance for activity to enable patient to perform ADL's. OT Education/Plan Problem List/Assessment Assessment: Decreased Activ Tolerance, Decreased Safety Aware, Dependent Transfers, Impaired Bed Mobility, Impaired Cognition, Impaired I ADL's, Impaired Self-Care Skills, Restricted Funct UE ROM Discharge Recommendations Plan/Recommendations: Continue POC Therapy D/C Recommendations: Home w/ Family Support, Occupational Therapy Home Care, Scheduled Assistance Treatment Plan/Plan of Care Treatment,Training & Education: Yes Patient would benefit from OT for education, treatment and training to promote independence in ADL's, mobility, safety and/or upper extremity function for ADL' s. Plan of Care: ADL Retraining, Caregiver Training, Functional Mobility, UE Funct Exercise/Act Treatment Duration: Jun 10, 2016 Visits Per Week: 10-12 Minutes/Day (M-F): 60-90 Minutes/Day (Sat/Lam): 15-30 Agreement: Yes Rehab Potential: Fair Time/GCodes Start Time: 13:30 Stop Time: 14:00 Total Time Billed (hr/min): 30 Billed Treatment Time 1, EX x 2 SAQIB ADAM OT May 24, 2016 14:02
[2016-05-24 14:07] VITALS: BP 106/66
--- NOTE | 2016-05-24 14:22 | Physical Therapy Daily Note ---
PT Daily Note-Current Subjective Pt was sitting in W/C in room upon arrival. Pt agreed to PT. Pain Numeric Pain Scale: 3 Location: Left Location Body Site: Thigh Pain Description: Ache, Tightness Mental Status Patient Orientation: Person, Confused Transfers Functional [place] Measure 0=Not Assessed/NA 4=Minimal Assistance 1=Total Assistance 5=Supervision or Setup 2=Maximal Assistance 6=Modified [place] 3=Moderate Assistance 7=Complete IndependenceIRFPAI Quality Coding Scale 6 Independent with activity with or without an assistive device 5 Patient requires set up or clean up by helper. Patient completes activity by themselves 4 Supervision or touching assist ([facility]). [place] provide cues , steadying assist 3 The helper provides less than half the effort to complete the activity 2 The helper provides more than half the effort to complete the activity 1 Dependent. The helper does all the effort to complete an activity 7 Patient refused to complete or attempt activity 9 The patient did not perform the activity before the current illness or injury 88 Not attempted due to Medical conditions or safety concerns Transfers (B, C, W/C) (FIM): 4 Scootin Rollin Supine to/from Sit: 5 Sit to/from Stand: 4 Weight Bearing Weight Bearing Restriction: Full Weight Bearing Location Restriction: LE Bilateral Gait Training Distance (FIM): 6=543-32 ft Distance: 125' Gait Level of Assist: 4 Gait Persons Needed: 1 Gait Assistive Device: FWW Pt has slow by steady gait without LOB. Exercises Supine Ex: Ankle pumps, Quad Set, Rolling, Heel Slides, Straight leg raise, Hip abd/add Supine Reps: 15 Treatments Pt transferred from W/C to standing using FWW at [facility]. Pt ambulated to Therapy Gym using FWW at [facility]. Pt transferred from standing to EOB at [facility] then EOB to supine at [facility]. Pt completed supine Ex on mat with a couple of rest breaks due to leg fatigue and tightness of L hamstring. Pt transferred from supine to EOB at [facility] then EOB to standing at [facility] using FWW. PT ambulated in hallway before returning to Therapy Gym to meet OT for tx. Pt transferred to chair at [facility] with VCs. Pt was left with OT and all needs met at end of tx. Assessment Current Status: Fair Progress Pt has some difficulty following/remembering directions and needs additional VCs. Pt able to complete Ex but needs VCs for sequencing. PT Short Term Goals Short Term Goals Time Frame: May 27, 2016 Transfers (B,C,W/C) (FIM): 4 (CGA) Gait (FIM): 4 Gait Distance Comment: 150' Gait Level of Assist: 4 (CGA) Gait Assistive Device: FWW PT Press Leader Goals Custodial Goals PT Press Leader Goals Time Frame: Jun 10, 2016 Transfers (B,C,W/C) (FIM): 5 Gait (FIM): 5 Distance: 200' Gait Level of Assist: 5 Gait Assistive Device: FWW Stairs (FIM): 2 # of Steps: 4 Stairs Level Of Assist: 4 (CGA) PT Plan Problem List Problem List: Activity Tolerance, Functional Strength, Safety, Balance, Gait, Transfer Treatment/Plan Treatment Plan: Continue Plan of Care Treatment Plan: Bed Mobility, Education, Functional Activity Boogie, Functional Strength, Group Therapy, Gait, Safety, Therapeutic Exercise, Transfers Treatment Duration: Jun 10, 2016 Visits Per Week: 10-11 Minutes/Day (M-F): 60-90 Minutes/Day (Sat/Lam): 15-30 Safety Risks/Education Patient Education: Gait Training, Transfer Techniques, Correct Positioning, Safety Issues Teaching Recipient: Patient Teaching Methods: Discussion Response to Teaching: Reinforcement Needed Time/GCodes Time In: 1300 Time Out: 1330 Total Billed Treatment Time: 30 Total Billed Treatment visit, GT (10m) & EX (20m) AFUA PATEL PTA May 24, 2016 14:22
[2016-05-24 16:00] VITALS: BP 120/80
[2016-05-24 17:59] VITALS: BP 139/64
--- NOTE | 2016-05-24 19:52 | PM & R (SOAP) Progress Note ---
Subjective Subjective/Events-last exam Patient was seen in his room this evening Patient min assist for transfers Objective Exam Last Set of Vital Signs Vital Signs Date Time Temp Pulse Resp B/P Pulse Ox O2 Delivery O2 Flow Rate FiO2 05/24/16 17:59 98.0 78 16 139/64 94 05/24/16 16:00 Room Air Capillary Refill : I&O Intake and Output 05/24/16 00:00 Intake Total 2540 ml Output Total 1500 ml Balance 1040 ml Intake Oral 2540 ml Output Urine Total 1500 ml # Voids 2 # Urine Diapers 2 # Bowel Movements 2 General: Alert, Cooperative, No Acute Distress HEENT: Atraumatic, PERRLA, EOMI, Mucous Memb Moist/[place], Other (NISQUALLY) Neck: Supple, No JVD Lungs: Clear to Auscultation Heart: Regular Rate Abdomen: Normal Bowel Sounds, Soft, No Tenderness Extremities: No Edema Neuro: Other (left HP with hip flex 3+/5 Knee flex/ext4/5 and Ankle dorsiflexion 4-/5 left shoulder 3+/5 distal 4/5 rt side Functional strength) Assessment/Plan Assessment 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
[2016-05-24] MEDS: SIMvastatin 40 MG (ZOCOR) TAB PO SCH (20:14)
[2016-05-25 05:09] VITALS: BP 153/76
[2016-05-25] MEDS: FERROUS SULF 325 MG (IRON) TAB PO SCH (06:13)
[2016-05-25] MEDS: SUCRALFATE 1 GM (CARAFATE) TAB PO SCH ×4 (06:13→20:39)
[2016-05-25] MEDS: PANTOPRAZOLE 40 MG (PROTONIX) TAB PO SCH (06:13)
[2016-05-25] MEDS: ASPIRIN E.C. 325 MG (ECOTRIN) TABLET PO SCH (08:33)
[2016-05-25] MEDS: VALSARTAN 80 MG (DIOVAN) TAB PO SCH (08:33)
[2016-05-25] MEDS: CLOPIDOGREL 75 MG (PLAVIX) TABLET PO SCH (08:33)
[2016-05-25] MEDS: VITAMIN D3 5,000 UNITS (CHOLECALCIFEROL ) CAPSULE PO SCH (08:33)
[2016-05-25] MEDS: FAMOTIDINE 20 MG (PEPCID) TABLET PO SCH ×2 (08:34→20:39)
[2016-05-25] MEDS: HYDROCHLOROTHIAZIDE 25 MG (HCTZ) TAB PO SCH (08:34)
--- NOTE | 2016-05-25 09:02 | Physical Therapy Daily Note ---
PT Daily Note-Current Subjective Patient in recliner pre tx, agrees to PT. No complaints of pain. Pain Numeric Pain Scale: 0-No Pain Appearance Patient in recliner post tx, has chair alarm on, nurse call, phone, tray, all needs met. Mental Status Patient Orientation: Person, Place, Situation Transfers Functional [place] Measure 0=Not Assessed/NA 4=Minimal Assistance 1=Total Assistance 5=Supervision or Setup 2=Maximal Assistance 6=Modified [place] 3=Moderate Assistance 7=Complete IndependenceIRFPAI Quality Coding Scale 6 Independent with activity with or without an assistive device 5 Patient requires set up or clean up by helper. Patient completes activity by themselves 4 Supervision or touching assist (CGA). [place] provide cues , steadying assist 3 The helper provides less than half the effort to complete the activity 2 The helper provides more than half the effort to complete the activity 1 Dependent. The helper does all the effort to complete an activity 7 Patient refused to complete or attempt activity 9 The patient did not perform the activity before the current illness or injury 88 Not attempted due to Medical conditions or safety concerns Transfers (B, C, W/C) (FIM): 4 Sit to/from Stand: 4 (CGA) Patient needs cues for safety and hand placement. Gait Training Gait (FIM): 4 Distance: 500'x2 Gait Level of Assist: 4 (CGA) Gait Persons Needed: 1 Gait Assistive Device: FWW Patient ambulates with SBA except he need CGA when turning. Exercises LAQ alternating for 5 min with 2# ankle weights NuStep Minutes: 15 NuStep Workload: 5 Treatments transfers, ambulation, functional strengthening Assessment Current Status: Fair Progress Endurance and balance improving. PT Short Term Goals Short Term Goals Time Frame: May 27, 2016 Transfers (B,C,W/C) (FIM): 4 (CGA) Gait (FIM): 4 Gait Distance Comment: 150' Gait Level of Assist: 4 (CGA) Gait Assistive Device: FWW PT Telephone Lineman Goals Senior Living Goals PT Senior Living Goals Time Frame: Jun 10, 2016 Transfers (B,C,W/C) (FIM): 5 Sit to Lying (QC): 6 Lying-Sitting on Side/Bed(QC): 6 Sit to Stand (QC): 4 Rollin Roll Left to Right (QC): 6 Chair/Kog-jk-Nkijm Xfer(QC): 4 Car Transfer (QC): 4 Gait (FIM): 5 Distance: 200' Walk 10 feet (QC): 4 Walk 10ft-Uneven Surface(QC): 4 Walk 50ft with 2 Turns (QC): 4 Walk 150 ft (QC): 4 Gait Level of Assist: 5 Gait Assistive Device: FWW Stairs (FIM): 2 # of Steps: 4 1 Step (curb) (QC): 4 4 Steps (QC): 4 12 Steps (QC): 88 Stairs Level Of Assist: 4 (CGA) Picking up an Object (QC): 4 PT Plan Problem List Problem List: Activity Tolerance, Functional Strength, Safety, Balance, Gait, Transfer Treatment/Plan Treatment Plan: Continue Plan of Care Treatment Plan: Bed Mobility, Education, Functional Activity Boogie, Functional Strength, Group Therapy, Gait, Safety, Therapeutic Exercise, Transfers Treatment Duration: Jun 10, 2016 Visits Per Week: 10-11 Minutes/Day (M-F): 60-90 Minutes/Day (Sat/Lam): 15-30 Safety Risks/Education Patient Education: Gait Training, Transfer Techniques, Safety Issues Teaching Recipient: Patient Teaching Methods: Demonstration, Discussion Response to Teaching: Reinforcement Needed Time/GCodes Time In: 800 Time Out: 900 Total Billed Treatment Time: 60 Total Billed Treatment 1 visit EX 20 min GT 40 min KELLEN ROY PT May 25, 2016 09:02
--- NOTE | 2016-05-25 10:55 | Speech Therapy Daily Note ---
Speech Daily Progress Note Subjective The patient was seated upright in recliner upon entrance. The patient greeted the clinician appropriately and agreed to participate in the speech and language treatment session on this date. Objective Word-Finding: The patient was provided a specific category and letter. The patient was asked to provide a specific word that began with the letter and fit into the category. The patient demonstrated severe difficulty with this task, requiring maximum clinician verbal prompting and direct modeling and displaying less than 25% accuracy. Assessment Assessment Current Status: Poor Progress Treatment Plan Continue Plan of Care Communication Comprehension: 3 Expression: 3 Social Cognition Social Interaction: 4 Problem Solvin Memory: 3 Speech Short Term Goals Short Term Goals Short Term Goals 1. The patient will demonstrated 80% accuracy with repetition of functional phrases. 2. The patient will demonstrate 80% accuracy with functional safety problem solving, independently. 3. The patient will demonstrate 80% accuracy with repetition of single words ( for transition into functional phrases). 4. The patient will demonstrate 80% accuracy with simple yes/no questions. Time Frame-STG: Two Weeks Speech Mason Tender Restoration Labor Goals Prison Goals 1. The patient will demonstrated improved expressive communication for increased function and safety with ADL's in the least restrictive setting. Time Frame: Six Weeks Comprehension: 4 Expression: 4 Social Interaction: 5 Problem Solvin Memory: 4 Speech-Plan Treatment Plan Speech Therapy Treatment Plan: Continue Plan of Care Treatment Duration: Jul 01, 2016 # of days/week Four to Five Visits Per Week: Four to Five Minutes/Day (M-F): 30 Rehab Potential: Fair Safety Risks/Education Teaching Recipient: Patient Teaching Methods: Discussion Response to Teaching: Verbalize Understanding, Reinforcement Needed Education Topics Provided: Word-Finding Strategies Time Speech Therapy Time In: 09:30 Speech Therapy Time Out: 10:00 Total Billed Time: 30 Billed Treatment Time PARAMJIT Cage ELIZABETH May 25, 2016 10:55
--- NOTE | 2016-05-25 11:46 | Consultation-Hospitalist ---
HPI History of Present Illness: HPI/Chief Complaint Mr. Montanez is a pleasant 85-year-old white male who is apparently several weeks out from right sided CVA with left-sided hemiparesis. This apparently recurrent. He has a history of hypertension and hyperlipidemia. He also apparently has history of iron deficiency anemia felt to be due to upper tract ulcers noted on EGD several months ago. He was started on pantoprazole and apparently Carafate. At that time he was on aspirin and possibly Plavix. He does have some memory impairment from his stroke in his care apparently transpired in the [place]. He states that he is making progress and currently he is only concerned about apparently recent onset nocturnal incontinence. He denies any previous problems with incontinence. He reports that it is large volume and he is not having any problems during the day. He does not believe there is been in the change in medication nor can I find any change in medication in his medical record since his transfer to our facility. He denies dysuria or increased frequency. He is unsure as to whether or not he is emptying his bladder when he is finished voiding. He denies flank pain and suprapubic pain or abdominal pain. His appetite has been normal and he denies chills fever and reports that if anything fatigue is been improving. Physical therapy has noted slow improvement with stamina and there has been some improvement in cognitive capability. Date Seen 05/25/16 Attending Physician Shemar Purdy MD PCP No,Local Physician Referring Physician Date of Admission May 19, 2016 at 14:10 Home Medications & Allergies Home Medications Reviewed patient Home Medication Reconciliation Form Allergies Coded Allergies: codeine (Verified Allergy, Unknown, 11/12/05) Past Pbwanvy-Cfvpjw-Kbzsfd Hx Patient Social History Alcohol Use: Denies Use Recreational Drug Use: No Smoking Status: Never a Smoker Physical Abuse Screen: No Sexual Abuse: No Recent Foreign Travel: No Contact w/other who traveled: No Recent Hopitalizations: Yes Recent Infectious Disease Expo: No Immunizations Up To Date Date of Pneumonia Vaccine: Nov 25, 2015 Date of Influenza Vaccine: Mar 12, 2016 Seasonal Allergies Seasonal Allergies: No Surgeries HX Surgeries: Yes Respiratory Hx Respiratory Disorders: No Cardiovascular Hx Cardiovascular Disorders: Yes Neurological Hx Neurological Disorders: Yes Neurological Disorders: Stroke Reproductive System Sexually Transmitted Disease: No HIV/AIDS: No Genitourinary Hx Genitourinary Disorders: Yes Genitourinary Disorders: Prostate Problems Gastrointestinal Hx Gastrointestinal Disorders: Yes Gastrointestinal Disorders: Gastroesophageal Reflux, Gastrointestinal Bleed, Diverticulosis Musculoskeletal Hx Musculoskeletal Disorders: No Musculoskeletal Disorders: Arthritis Endocrine Hx Endocrine Disorders: Yes Endocrine Disorders: Diabetes, Non-Insulin dep HEENT HX ENT Disorders: No Hearing Impairment: Hard of Hearing, Hearing Aide Right, Hearing Aide Left Cancer Hx Cancer: Yes Cancer: Prostate Psychosocial Hx Psychiatric Problems: No Integumentary HX Skin/Integumentary Disorder: No Skin/Integumentary Disorders: Recent Skin Changes Review of Systems Constitutional: see HPI Respiratory: no symptoms reported Cardiovascular: no symptoms reportedNo chest pain, No edema, No Hx of Intervention, No palpitations, No syncope, No vascular heart diseas, No other Genitourinary: see HPINo decreased output, No discharge, No dysuria, No frequency, No hematuria, No hesitancy, incontinence (urge) nocturiaNo pain, No other Physical Exam Physical Exam Vital Signs Vital Sign - Last 12Hours 05/19/16 14:10 Temp 98.0 Pulse 77 Resp 20 B/P 156/91 Pulse Ox 96 O2 Delivery Room Air Capillary Refill : General Appearance: No Apparent Distress Neck: Full Range of Motion Normal Inspection Non Tender Respiratory: Chest Non Tender Lungs Clear Normal Breath Sounds No Accessory Muscle Use No Respiratory Distress Cardiovascular: Regular Rate, Rhythm No Edema No JVD No Murmur Other (Soft S4 no S3) Gastrointestinal: Normal Bowel Sounds No Organomegaly No Pulsatile Mass Non Tender Soft Neurologic/Psychiatric: Alert Normal Mood/Affect Other (Mild left upper and left lower extremity weakness there is mild expressive aphasia as well as mild receptive aphasia patient is oriented 2) Skin: Normal Color Warm/Dry Assessment/Plan Admission Diagnosis 1. Right-sided CVA with left-sided hemiparesis and expressive aphasia reportedly recurrent improving. Combination aspirin and Plavix unfortunately is only been shown increased bleeding risk and not reduce stroke recurrence so we will discontinue Plavix especially in light of the fact the patient has a history of peptic ulcer disease with secondary iron deficiency anemia. 2. Increasing nocturia with incontinence reported history of so-called prostate problems patient is a poor historian. We'll obtain a UA and a postvoid bladder scan. I have discussed somewhat limited historical details Dr. John who will be seeing the patient in consultation. 3. Hypertension appears to be under reasonable control. 4. Reports that there is no significant carotid disease. 5. History of hyperlipidemia on statin therapy continue. 6. Suspected vitamin D deficiency as the patient is on 10,000 units of vitamin D. It was written for daily and the patient has had 5 doses continued use at this level would lead to potential toxicities so we will DC. After a week would consider decreasing To 1000 units daily. Clinical Quality Measures DVT/VTE Risk/Contraindication: Risk Factor Score Per Nursin RFS Level Per Nursing on Admit: 4+=Very High PRAKASH VERDE MD May 25, 2016 11:46
--- NOTE | 2016-05-25 13:13 | CONSULTATION REPORT ---
DATE OF CONSULTATION: 05/25/2016 ATTENDING PHYSICIAN: Dr. Ochoa. SUMMARY: 85-year-old white man recovering from a right-sided CVA with left-sided hemiparesis was complaining essentially of nocturnal anuresis. He had this problem even before the stroke. He is okay during the daytime, he described a good stream, and says he empties his bladder well. Denies any urinary surgery or frequency before. He was having his lunch and didn't want to disturb him by examining him. Dr. Ochoa ordered a UA and a bladder scan postvoid residual. IMPRESSION: Nocturnal enuresis PLAN: We will await the results of urinalysis and bladder scan postvoid residual and manage accordingly. Job ID: [id number] Dictated Date: 05/25/2016 12:35:05 Paper Final Inspector Date: 05/25/2016 13:09:08/mathieu
--- NOTE | 2016-05-25 13:56 | Occupational Ther Daily Note ---
OT Current Status-Daily Note Subjective No pain reported. Appearance Pt. is up in chair. Agrees to shower. Mental Status/Objective Patient Orientation: Person Functional [place] Measure 0=Not Assessed/NA 4=Minimal Assistance 1=Total Assistance 5=Supervision or Setup 2=Maximal Assistance 6=Modified [place] 3=Moderate Assistance 7=Complete [place] Pt. still has great difficulty expressing himself. Has difficulty with intelligible speech. ADL-Treatment Functional [place] Measure 0=Not Assessed/NA 4=Minimal Assistance 1=Total Assistance 5=Supervision or Setup 2=Maximal Assistance 6=Modified [place] 3=Moderate Assistance 7=Complete IndependenceIRFPAI Quality Coding Scale 6 Independent with activity with or without an assistive device 5 Patient requires set up or clean up by helper. Patient completes activity by themselves 4 Supervision or touching assist (CGA). [place] provide cues , steadying assist 3 The helper provides less than half the effort to complete the activity 2 The helper provides more than half the effort to complete the activity 1 Dependent. The helper does all the effort to complete an activity 7 Patient refused to complete or attempt activity 9 The patient did not perform the activity before the current illness or injury 88 Not attempted due to Medical conditions or safety concerns Eating (FIM): 5 (set up of lunch tray.) Toileting Hygiene (QC): 4 (Noted that pt. had been slightly incontinent of bowel in his brief. However, he was able to wash self in shower thoroughly.) Bathing (FIM): 5 (Pt. requires close supervision during showering task. Is able to reach all parts but requires cues at times for safety.) Upper Body (FIM): 5 Lower Body Dressing (FIM): 5 (Pt. requires increased time and cues to don brief and pants. Able to do so with SBA.) Transfers (B, C, W/C) (FIM): 5 (Pt. requires SBA to stand out of chair and to transfer to bed.) Shower Transfer(FIM): 5 (Pt. requires cues to transfer into shower safely. Able to do so with close supervision and max cues.) Other Treatment After ADLs, pt. ambulated to therapy gym. Tolerated 15 minutes on armbike at mod resistance to increase overall strength and mobility with daily tasks such as donning shirt, pushing up out of chair, etc.... Pt. then tolerated series of fine motor tasks such as nut/bolts, therapy pins and pegs, etc.... to continue with hand and finger strengthening for tasks such as buttoning shirt and cleansing rear juan luis area. Tolerated this well. Ambulated back to room. All needs met. Education OT Patient Education: Exercise program, Modified ADL techniques, Progress toward Goal/Update tx plan, Purpose of tx/functional activities, Reviewed precautions, Rehab process, Transfer techniques Teaching Recipient: Patient Teaching Methods: Demonstration, Discussion Response to Teaching: Verbalize Understanding, Return Demonstration OT Short Term Goals Short Term Goals Time Frame: May 27, 2016 Eating(FIM): 5 Grooming(FIM): 5 Bathing(FIM): 5 Upper Body Dressing(FIM): 5 Lower Body Dressing(FIM): 4 Toileting(FIM): 4 Transfers (B,C,W/C) (FIM): 4 (CGA) Toilet/Commode Transfer(FIM): 5 Shower Transfer(FIM): 5 Additional Short Term Goals: 1-Demonstrate ADL Tasks, 2-Verbalize Understanding , 3-ImproveStrength/Boogie 1=Demonstrate adherence to instructed precautions during ADL tasks. 2=Patient will verbalize/demonstrate understanding of assistive devices/ modifications for ADL. 3=Patient will improve strength/tolerance for activity to enable patient to perform ADL's. OT Shelter Goals Shelter Goals Time Frame: Jun 10, 2016 Eating (FIM): 6 Eating (QC): 6 Oral Hygiene (QC): 5 Grooming(FIM): 5 Bathing(FIM): 5 Shower/Bathe Self (QC): 5 Upper Body Dressing(FIM): 5 Upper Body Dressing (QC): 5 Lower Body Dressing(FIM): 5 Lower Body Dressing (QC): 5 On/Off Footwear (QC): 5 Toileting(FIM): 6 Toileting Hygiene (QC): 6 Transfers (B,C,W/C) (FIM): 5 Toilet/Commode Transfer(FIM): 5 Toilet/Commode Transfer (QC): 5 Shower Transfer(FIM): 4 Comprehension(FIM): 4 Expression (FIM): 4 Social Interaction(FIM): 5 Problem Solving(FIM): 4 Memory(FIM): 4 Additional Goals: 1-Demonstrate ADL Tasks, 2-Verbalize Understanding, 3- ImproveStrength/Boogie 1=Demonstrate adherence to instructed precautions during ADL tasks. 2=Patient will verbalize/demonstrate understanding of assistive devices/ modifications for ADL. 3=Patient will improve strength/tolerance for activity to enable patient to perform ADL's. OT Education/Plan Problem List/Assessment Assessment: Decreased Activ Tolerance, Dependent Transfers, Impaired Bed Mobility, Impaired Funct Balance, Impaired I ADL's, Impaired Self-Care Skills Discharge Recommendations Plan/Recommendations: Continue POC Therapy D/C Recommendations: Home w/ Family Support, Occupational Therapy Home Care, Scheduled Assistance Treatment Plan/Plan of Care Treatment,Training & Education: Yes Patient would benefit from OT for education, treatment and training to promote independence in ADL's, mobility, safety and/or upper extremity function for ADL' s. Plan of Care: ADL Retraining, Caregiver Training, Functional Mobility, UE Funct Exercise/Act Treatment Duration: Jun 10, 2016 Visits Per Week: 10-12 Minutes/Day (M-F): 60-90 Minutes/Day (Sat/Lam): 15-30 Agreement: Yes Rehab Potential: Fair Time/GCodes Start Time: 10:15 Stop Time: 11:30 Total Time Billed (hr/min): 75 Billed Treatment Time 1, ADL x 45minutes, EX x 30minutes SAQIB ADAM OT May 25, 2016 13:56
--- NOTE | 2016-05-25 14:57 | Physical Therapy Daily Note ---
PT Daily Note-Current Subjective Patient in recliner pre tx, agrees to PT, pleasant and cooperative. Patient states "I don't really even know why I'm here, they tell me I had a stroke." Pain Numeric Pain Scale: 0-No Pain Appearance Patient in recliner post tx with chair alarm on, nurse call, phone, tray, all needs met. Mental Status Patient Orientation: Person, Place Transfers Functional [place] Measure 0=Not Assessed/NA 4=Minimal Assistance 1=Total Assistance 5=Supervision or Setup 2=Maximal Assistance 6=Modified [place] 3=Moderate Assistance 7=Complete IndependenceIRFPAI Quality Coding Scale 6 Independent with activity with or without an assistive device 5 Patient requires set up or clean up by helper. Patient completes activity by themselves 4 Supervision or touching assist (CGA). [place] provide cues , steadying assist 3 The helper provides less than half the effort to complete the activity 2 The helper provides more than half the effort to complete the activity 1 Dependent. The helper does all the effort to complete an activity 7 Patient refused to complete or attempt activity 9 The patient did not perform the activity before the current illness or injury 88 Not attempted due to Medical conditions or safety concerns Transfers (B, C, W/C) (FIM): 4 Sit to/from Stand: 4 Gait Training Gait (FIM): 4 Distance: 500'x2 Gait Level of Assist: 4 (CGA) Gait Persons Needed: 1 Gait Assistive Device: FWW CGA on turns, slow ambulation, poor foot clearance Treatments transfers, ambulation Assessment Current Status: Fair Progress patient is almost SBA with transfers and mobility, still needs cues for safety and hand placement during transfers PT Short Term Goals Short Term Goals Time Frame: May 27, 2016 Transfers (B,C,W/C) (FIM): 4 (CGA) Gait (FIM): 4 Gait Distance Comment: 150' Gait Level of Assist: 4 (CGA) Gait Assistive Device: FWW PT Body Sander Goals Detention Goals PT Body Sander Goals Time Frame: Jun 10, 2016 Transfers (B,C,W/C) (FIM): 5 Sit to Lying (QC): 6 Lying-Sitting on Side/Bed(QC): 6 Sit to Stand (QC): 4 Rollin Roll Left to Right (QC): 6 Chair/[id number]-Bbqzm Xfer(QC): 4 Car Transfer (QC): 4 Gait (FIM): 5 Distance: 200' Walk 10 feet (QC): 4 Walk 10ft-Uneven Surface(QC): 4 Walk 50ft with 2 Turns (QC): 4 Walk 150 ft (QC): 4 Gait Level of Assist: 5 Gait Assistive Device: FWW Stairs (FIM): 2 # of Steps: 4 1 Step (curb) (QC): 4 4 Steps (QC): 4 12 Steps (QC): 88 Stairs Level Of Assist: 4 (CGA) Picking up an Object (QC): 4 PT Plan Problem List Problem List: Activity Tolerance, Functional Strength, Safety, Balance, Gait, Transfer, Bed Mobility Treatment/Plan Treatment Plan: Continue Plan of Care Treatment Plan: Bed Mobility, Education, Functional Activity Boogie, Functional Strength, Group Therapy, Gait, Safety, Therapeutic Exercise, Transfers Treatment Duration: Jun 10, 2016 Visits Per Week: 10-11 Minutes/Day (M-F): 60-90 Minutes/Day (Sat/Lam): 15-30 Safety Risks/Education Patient Education: Gait Training, Transfer Techniques, Safety Issues Teaching Recipient: Patient Teaching Methods: Demonstration, Discussion Response to Teaching: Reinforcement Needed Time/GCodes Time In: 1425 Time Out: 1455 Total Billed Treatment Time: 30 Total Billed Treatment 1 visit GT 30 min KELLEN ROY PT May 25, 2016 14:56
[2016-05-25 17:55] VITALS: BP 95/65
--- NOTE | 2016-05-25 18:53 | PM & R (SOAP) Progress Note ---
Subjective Subjective/Events-last exam Patient was seen in his room this AM Patient Min assist for transfers Appreciate PT/OT and ST notes Objective Exam Last Set of Vital Signs Vital Signs Date Time Temp Pulse Resp B/P Pulse Ox O2 Delivery O2 Flow Rate FiO2 05/25/16 17:55 96.9 76 16 95/65 96 Room Air Capillary Refill : I&O Intake and Output 05/25/16 00:00 Intake Total 1530 ml Balance 1530 ml Intake Oral 1530 ml # Voids 8 # Urine Diapers 3 # Bowel Movements 1 General: Alert, Cooperative, No Acute Distress HEENT: Atraumatic, PERRLA, EOMI, Mucous Memb Moist/[place], Other ([place]) Neck: Supple, No JVD Lungs: Clear to Auscultation Heart: Regular Rate Abdomen: Normal Bowel Sounds, Soft, No Tenderness Extremities: No Edema Neuro: Other (left HP with hip flex 3+/5 Knee flex/ext4/5 and Ankle dorsiflexion 4-/5 left shoulder 3+/5 distal 4/5 rt side Functional strength) Assessment/Plan Assessment 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
[2016-05-25] MEDS: SIMvastatin 40 MG (ZOCOR) TAB PO SCH (20:39)
[2016-05-26 04:34] VITALS: BP 166/77
[2016-05-26] MEDS: PANTOPRAZOLE 40 MG (PROTONIX) TAB PO SCH (06:04)
[2016-05-26] MEDS: SUCRALFATE 1 GM (CARAFATE) TAB PO SCH ×4 (06:04→20:49)
[2016-05-26] MEDS: ASPIRIN E.C. 325 MG (ECOTRIN) TABLET PO SCH (08:17)
[2016-05-26] MEDS: HYDROCHLOROTHIAZIDE 25 MG (HCTZ) TAB PO SCH (08:17)
[2016-05-26] MEDS: FAMOTIDINE 20 MG (PEPCID) TABLET PO SCH ×2 (08:17→20:49)
[2016-05-26] MEDS: VALSARTAN 80 MG (DIOVAN) TAB PO SCH (08:18)
--- NOTE | 2016-05-26 08:46 | Physical Therapy Daily Note ---
PT Daily Note-Current Subjective Patient in bathroom pre tx, will need assistance with toileting and to get dressed afterward. Pain Numeric Pain Scale: 0-No Pain Appearance Patient in recliner post tx with chair alarm, has nurse call, phone, tray, all needs met. Mental Status Patient Orientation: Person, Place Transfers Functional [place] Measure 0=Not Assessed/NA 4=Minimal Assistance 1=Total Assistance 5=Supervision or Setup 2=Maximal Assistance 6=Modified [place] 3=Moderate Assistance 7=Complete IndependenceIRFPAI Quality Coding Scale 6 Independent with activity with or without an assistive device 5 Patient requires set up or clean up by helper. Patient completes activity by themselves 4 Supervision or touching assist (CGA). [place] provide cues , steadying assist 3 The helper provides less than half the effort to complete the activity 2 The helper provides more than half the effort to complete the activity 1 Dependent. The helper does all the effort to complete an activity 7 Patient refused to complete or attempt activity 9 The patient did not perform the activity before the current illness or injury 88 Not attempted due to Medical conditions or safety concerns Transfers (B, C, W/C) (FIM): 4 Sit to/from Stand: 4 Patient still needs CGA with transfers due to occasional unsteadiness, cues for safety and hand placement Gait Training Gait (FIM): 4 Distance: 500', 150' Gait Level of Assist: 4 Gait Persons Needed: 1 Gait Assistive Device: FWW patient is standby assist unless he is turning (CGA), he has trouble with backwards walking, not much foot clearance Exercises NuStep Minutes: 15 NuStep Workload: 5 Treatments toileting, dressing, ambulation, transfers, functional strengthening Assessment Current Status: Fair Progress patient has not made much progress in the last few days, he may have reached a plateau PT Short Term Goals Short Term Goals Time Frame: May 27, 2016 Transfers (B,C,W/C) (FIM): 4 (CGA) Gait (FIM): 4 Gait Distance Comment: 150' Gait Level of Assist: 4 (CGA) Gait Assistive Device: FWW PT Supervisor Cartography Goals Supervisor Cartography Goals PT Half-Way Goals Time Frame: Jun 10, 2016 Transfers (B,C,W/C) (FIM): 5 Sit to Lying (QC): 6 Lying-Sitting on Side/Bed(QC): 6 Sit to Stand (QC): 4 Rollin Roll Left to Right (QC): 6 Chair/Ekp-dl-Vebhx Xfer(QC): 4 Car Transfer (QC): 4 Gait (FIM): 5 Distance: 200' Walk 10 feet (QC): 4 Walk 10ft-Uneven Surface(QC): 4 Walk 50ft with 2 Turns (QC): 4 Walk 150 ft (QC): 4 Gait Level of Assist: 5 Gait Assistive Device: FWW Stairs (FIM): 2 # of Steps: 4 1 Step (curb) (QC): 4 4 Steps (QC): 4 12 Steps (QC): 88 Stairs Level Of Assist: 4 (CGA) Picking up an Object (QC): 4 PT Plan Problem List Problem List: Activity Tolerance, Functional Strength, Safety, Balance, Gait, Transfer Treatment/Plan Treatment Plan: Continue Plan of Care Treatment Plan: Bed Mobility, Education, Functional Activity Boogie, Functional Strength, Group Therapy, Gait, Safety, Therapeutic Exercise, Transfers Treatment Duration: Jun 10, 2016 Visits Per Week: 10-11 Minutes/Day (M-F): 60-90 Minutes/Day (Sat/Lam): 15-30 Safety Risks/Education Patient Education: Gait Training, Transfer Techniques, Safety Issues Teaching Recipient: Patient Teaching Methods: Demonstration, Discussion Response to Teaching: Reinforcement Needed Time/GCodes Time In: 800 Time Out: 845 Total Billed Treatment Time: 45 Total Billed Treatment 1 visit EX 15 min GT 15 min FA 15 min KELLEN ROY PT May 26, 2016 08:46
[2016-05-26 08:50] LABS: BILIRUBIN,URINE NEGATIVE (NEGATIVE); KETONES,URINE NEGATIVE (NEGATIVE); LEUKOCYTE ESTERASE ,URINE 1+ (NEGATIVE); NITRITE,URINE NEGATIVE (NEGATIVE); PH,URINE 5 (5-9); PROTEIN,URINE NEGATIVE (NEGATIVE); UROBILINOGEN,URINE NORMAL (NORMAL)
[2016-05-26 09:01] LABS: SQUAMOUS EPITHELIAL CELL,UR 0-2 /HPF; WBC,URINE 0-2 /HPF
--- NOTE | 2016-05-26 10:53 | Progress Note-Hospitalist ---
Progress Note HPI/CC on Admission Mr. Montanez is a pleasant 85-year-old white male who is apparently several weeks out from right sided CVA with left-sided hemiparesis. This apparently recurrent. He has a history of hypertension and hyperlipidemia. He also apparently has history of iron deficiency anemia felt to be due to upper tract ulcers noted on EGD several months ago. He was started on pantoprazole and apparently Carafate. At that time he was on aspirin and possibly Plavix. 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 He states that he is making progress and currently he is only concerned about apparently recent onset nocturnal incontinence. He denies any previous problems with incontinence. He reports that it is large volume and he is not having any problems during the day. He does not believe there is been in the change in medication nor can I find any change in medication in his medical record since his transfer to our facility. He denies dysuria or increased frequency. He is unsure as to whether or not he is emptying his bladder when he is finished voiding. He denies flank pain and suprapubic pain or abdominal pain. His appetite has been normal and he denies chills fever and reports that if anything fatigue is been improving. Physical therapy has noted slow improvement with stamina and there has been some improvement in cognitive capability. Progress Notes/Assess & Plan Date Seen 05/26/16 Diagonsis/Assessment & Plan Patient Interview: Pt was working with PT during visit. Pt states that he feels good today. Physical exam was stable. AFVSS except BP mild elevation consistently RRR, CTAB No edema Assessment: CVA recurrent type HTN HLP Plan: [facility] Monitor BP Scribed by Cory Soni under the direct supervision of Dr. Carvajal. YONI CARVAJAL DO May 26, 2016 10:53
--- NOTE | 2016-05-26 10:55 | Occupational Ther Daily Note ---
OT Current Status-Daily Note Subjective No pain reported. Pt. states that PT "killed me!" Appearance Pt. up in chair. Already dressed with PT assist this morning. Declines showering again, as he had yesterday. Agrees to therapy. Mental Status/Objective Patient Orientation: Unable to Assess Functional [place] Measure 0=Not Assessed/NA 4=Minimal Assistance 1=Total Assistance 5=Supervision or Setup 2=Maximal Assistance 6=Modified [place] 3=Moderate Assistance 7=Complete [place] ADL-Treatment Functional [place] Measure 0=Not Assessed/NA 4=Minimal Assistance 1=Total Assistance 5=Supervision or Setup 2=Maximal Assistance 6=Modified [place] 3=Moderate Assistance 7=Complete IndependenceIRFPAI Quality Coding Scale 6 Independent with activity with or without an assistive device 5 Patient requires set up or clean up by helper. Patient completes activity by themselves 4 Supervision or touching assist (CGA). [place] provide cues , steadying assist 3 The helper provides less than half the effort to complete the activity 2 The helper provides more than half the effort to complete the activity 1 Dependent. The helper does all the effort to complete an activity 7 Patient refused to complete or attempt activity 9 The patient did not perform the activity before the current illness or injury 88 Not attempted due to Medical conditions or safety concerns Transfers (B, C, W/C) (FIM): 5 (Pt. requires SBA with all transfers. Tolerated this well.) Other Treatment Pt. ambulated to therapy gym with OT SBA using walker. Completed fine motor task to increase left handed strength and coordination. Tolerated treatment well. However, pt. indicates that he "doesn't like this." Pt. agreed to ambulate with OT. Ambulated with walker and SBA approximately 300 feet. Went back to room and all needs met. Education OT Patient Education: Exercise program, Modified ADL techniques, Progress toward Goal/Update tx plan, Purpose of tx/functional activities, Reviewed precautions, Transfer techniques Teaching Recipient: Patient Teaching Methods: Demonstration, Discussion Response to Teaching: Verbalize Understanding, Return Demonstration OT Short Term Goals Short Term Goals Time Frame: May 27, 2016 Eating(FIM): 5 Grooming(FIM): 5 Bathing(FIM): 5 Upper Body Dressing(FIM): 5 Lower Body Dressing(FIM): 4 Toileting(FIM): 4 Transfers (B,C,W/C) (FIM): 4 (CGA) Toilet/Commode Transfer(FIM): 5 Shower Transfer(FIM): 5 Additional Short Term Goals: 1-Demonstrate ADL Tasks, 2-Verbalize Understanding , 3-ImproveStrength/Boogie 1=Demonstrate adherence to instructed precautions during ADL tasks. 2=Patient will verbalize/demonstrate understanding of assistive devices/ modifications for ADL. 3=Patient will improve strength/tolerance for activity to enable patient to perform ADL's. OT Fdc Goals Fine Arts Model Goals Time Frame: Jun 10, 2016 Eating (FIM): 6 Eating (QC): 6 Oral Hygiene (QC): 5 Grooming(FIM): 5 Bathing(FIM): 5 Shower/Bathe Self (QC): 5 Upper Body Dressing(FIM): 5 Upper Body Dressing (QC): 5 Lower Body Dressing(FIM): 5 Lower Body Dressing (QC): 5 On/Off Footwear (QC): 5 Toileting(FIM): 6 Toileting Hygiene (QC): 6 Transfers (B,C,W/C) (FIM): 5 Toilet/Commode Transfer(FIM): 5 Toilet/Commode Transfer (QC): 5 Shower Transfer(FIM): 4 Comprehension(FIM): 4 Expression (FIM): 4 Social Interaction(FIM): 5 Problem Solving(FIM): 4 Memory(FIM): 4 Additional Goals: 1-Demonstrate ADL Tasks, 2-Verbalize Understanding, 3- ImproveStrength/Boogie 1=Demonstrate adherence to instructed precautions during ADL tasks. 2=Patient will verbalize/demonstrate understanding of assistive devices/ modifications for ADL. 3=Patient will improve strength/tolerance for activity to enable patient to perform ADL's. OT Education/Plan Problem List/Assessment Assessment: Decreased Activ Tolerance, Impaired I ADL's, Impaired Self-Care Skills Discharge Recommendations Plan/Recommendations: Continue POC Therapy D/C Recommendations: 24 hr Supervision, Home w/ Family Support, Occupational Therapy Home Care Treatment Plan/Plan of Care Treatment,Training & Education: Yes Patient would benefit from OT for education, treatment and training to promote independence in ADL's, mobility, safety and/or upper extremity function for ADL' s. Plan of Care: ADL Retraining, Caregiver Training, Functional Mobility, UE Funct Exercise/Act Treatment Duration: Jun 10, 2016 Visits Per Week: 10-12 Minutes/Day (M-F): 60-90 Minutes/Day (Sat/Lam): 15-30 Agreement: Yes Rehab Potential: Fair Time/GCodes Start Time: 10:00 Stop Time: 10:45 Total Time Billed (hr/min): 45 Billed Treatment Time 1, FA x 30minutes, EX x 15minutes SAQIB ADAM OT May 26, 2016 10:55
--- NOTE | 2016-05-26 10:58 | Speech Therapy Daily Note ---
Speech Daily Progress Note Subjective The patient was seated upright in recliner upon entrance. The patient greeted the clinician appropriately and agreed to participate in the speech and language treatment session on this date. Objective Word-Finding: The patient was provided a specific category and letter. The patient was asked to provide a specific word that began with the letter and fit into the category. The patient demonstrated severe difficulty (however, improved from the previous session) with this task, requiring maximum clinician verbal prompting and direct modeling and displaying less than 40% accuracy. The patient was provided a specific category and asked to provide members that would fit into the category. The patient was able to name three items per category with moderate clinician verbal prompting. Assessment Assessment Current Status: Fair Progress Treatment Plan Continue Plan of Care Communication Comprehension: 3 Expression: 3 Social Cognition Social Interaction: 4 Problem Solvin Memory: 3 Speech Short Term Goals Short Term Goals Short Term Goals 1. The patient will demonstrated 80% accuracy with repetition of functional phrases. 2. The patient will demonstrate 80% accuracy with functional safety problem solving, independently. 3. The patient will demonstrate 80% accuracy with repetition of single words ( for transition into functional phrases). 4. The patient will demonstrate 80% accuracy with simple yes/no questions. Time Frame-STG: Two Weeks Speech Prison Goals Prison Goals 1. The patient will demonstrated improved expressive communication for increased function and safety with ADL's in the least restrictive setting. Time Frame: Six Weeks Comprehension: 4 Expression: 4 Social Interaction: 5 Problem Solvin Memory: 4 Speech-Plan Treatment Plan Speech Therapy Treatment Plan: Continue Plan of Care Treatment Duration: Jul 01, 2016 # of days/week Four to Five Visits Per Week: Four to Five Minutes/Day (M-F): 30 Rehab Potential: Fair Safety Risks/Education Teaching Recipient: Patient Teaching Methods: Discussion Response to Teaching: Verbalize Understanding, Reinforcement Needed Education Topics Provided: Word-Finding Strategies Time Speech Therapy Time In: 09:30 Speech Therapy Time Out: 10:00 Total Billed Time: 30 Billed Treatment Time FauziaKIERAASHVIN LAMBERTDanielaSUE ST May 26, 2016 10:58
[2016-05-26] MEDS: amLODIPine 5 MG (NORVASC) TAB PO SCH (11:07)
[2016-05-26 11:10] VITALS: BP 137/76
--- NOTE | 2016-05-26 11:46 | Progress Note-Urology ---
Progress Note-Urology Progress Notes/Assess & Plan Progress/Assessment & Plan UA essentially negative. PVR scan not done yesterday. we will order one today. Final Diagnosis nocturnal enuresis MADAI ROJAS MD May 26, 2016 11:46
--- NOTE | 2016-05-26 14:57 | Therapy Group Daily Note ---
Therapy Daily Group Note Patient Education Topic Home Safety, Other List Below (gait assistive devices) Exercises LE Seated Exercise, UE Exercise Other/Notes Pt. attended group PT OT session this date. Pt. to/from with CGA ambulating with FWW. Pt. expresses that he is struggling with his memory but feels it is improving. Pt is social and smiles and answers all question and engages as best he can. Pt. introduced himself and shared that he isnt sure what he is proud of except that he does know his name this time at group. Pt. needed cuing ans tactile assist in seated U&L extremity ther ex. Assistive devices for gait were demonstrated : crutches, FWW, hurry cane, alesha walker and 3 WW. Pt. smiles and makes eye contact entire group. Returned to room up in w/c with [place] at hand Start Time: 13:00 Stop Time: 14:15 Total Billed Treatment Time: 75 Total Billed Treatment 1,GRP ELY JONES SURGICAL SCRUB TECHNICIAN May 26, 2016 14:57
--- NOTE | 2016-05-26 15:15 | PM & R (SOAP) Progress Note ---
Subjective Subjective/Events-last exam Patient was seen in his room this AM Appreciate Dr Reyes note and orders U/A negative Objective Exam Last Set of Vital Signs Vital Signs Date Time Temp Pulse Resp B/P Pulse Ox O2 Delivery O2 Flow Rate FiO2 05/26/16 11:10 76 137/76 05/26/16 04:34 97.8 16 96 Room Air Capillary Refill : I&O Intake and Output 05/26/16 00:00 Intake Total 890 ml Balance 890 ml Intake Oral 890 ml # Voids 8 # Bowel Movements 1 General: Alert, Cooperative, No Acute Distress HEENT: Atraumatic, PERRLA, EOMI, Mucous Memb Moist/[place], Other ([place]) Neck: Supple, No JVD Lungs: Clear to Auscultation Heart: Regular Rate Abdomen: Normal Bowel Sounds, Soft, No Tenderness Extremities: No Edema Neuro: Other (left HP with hip flex 3+/5 Knee flex/ext4/5 and Ankle dorsiflexion 4-/5 left shoulder 3+/5 distal 4/5 rt side Functional strength) Results Lab Laboratory Tests 05/26/16 08:15: Urine Bacteria NEGATIVE, Urine Bilirubin NEGATIVE, Urine Casts NONE, Urine Clarity CLEAR, Urine Color YELLOW, Urine Crystals NONE, Urine Culture Indicated NO, Urine Glucose (UA) NEGATIVE, Urine Ketones NEGATIVE, Urine Leukocyte Esterase 1+H, Urine Mucus LARGEH, Urine Nitrite NEGATIVE, Urine Protein NEGATIVE , Urine RBC NONE, Urine RBC (Auto) NEGATIVE, Urine Specific [place] 1.020, Urine Squamous Epithelial Cells 0-2, Urine Urobilinogen NORMAL, Urine WBC 0-2, Urine pH 5 Assessment/Plan Assessment 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
[2016-05-26 20:44] VITALS: BP 104/68
[2016-05-26] MEDS: SIMvastatin 40 MG (ZOCOR) TAB PO SCH (20:49)
[2016-05-26] MEDS: DESMOPRESSIN 0.2 MG TAB (NON-FORMULARY) PO SCH (20:49)
[2016-05-27 06:00] VITALS: BP 132/70
[2016-05-27] MEDS: PANTOPRAZOLE 40 MG (PROTONIX) TAB PO SCH (06:19)
[2016-05-27] MEDS: SUCRALFATE 1 GM (CARAFATE) TAB PO SCH ×4 (06:19→19:57)
--- NOTE | 2016-05-27 08:34 | Occupational Ther Daily Note ---
OT Current Status-Daily Note Subjective Pt alert, sitting in recliner. Already dressed and ready to go. Pt declined shower today. No c/o pain at this time. Mental Status/Objective Patient Orientation: Person, Place Functional [place] Measure 0=Not Assessed/NA 4=Minimal Assistance 1=Total Assistance 5=Supervision or Setup 2=Maximal Assistance 6=Modified [place] 3=Moderate Assistance 7=Complete [place] ADL-Treatment Pt is able to transfer from chair then ambulated to therapy gym with CGA using FWW. No LOB noted during transfers. Pt was able to pick items up off floor when seating in recliner with L hand, no LOB noted. Functional [place] Measure 0=Not Assessed/NA 4=Minimal Assistance 1=Total Assistance 5=Supervision or Setup 2=Maximal Assistance 6=Modified [place] 3=Moderate Assistance 7=Complete IndependenceIRFPAI Quality Coding Scale 6 Independent with activity with or without an assistive device 5 Patient requires set up or clean up by helper. Patient completes activity by themselves 4 Supervision or touching assist (CGA). [place] provide cues , steadying assist 3 The helper provides less than half the effort to complete the activity 2 The helper provides more than half the effort to complete the activity 1 Dependent. The helper does all the effort to complete an activity 7 Patient refused to complete or attempt activity 9 The patient did not perform the activity before the current illness or injury 88 Not attempted due to Medical conditions or safety concerns Other Treatment Pt completed arm bike 15 min at 15 hua resistance to increase strength and activity tolerance for daily functional tasks. Pt did take small rest breaks with both arms or one arm at a time. Pt then completed fine motor, sequencing and problem solving tasks with 1# wt attached to wrists. Pt tolerated strengthening aspect of task. Pt had difficulty with sequencing and problem solving patterning with fine motor skills. Pt was able to notice when patterns did not match and correct though got very frustrated and took increased time to complete tasks. After time and minimal cues pt completed task then ambulated with CGA using FWW back to room. After therapy, pt sitting in recliner with call light/phone in reach. All needs met in room. OT Short Term Goals Short Term Goals Time Frame: May 27, 2016 Eating(FIM): 5 Grooming(FIM): 5 Bathing(FIM): 5 Upper Body Dressing(FIM): 5 Lower Body Dressing(FIM): 4 Toileting(FIM): 4 Transfers (B,C,W/C) (FIM): 4 (CGA) Toilet/Commode Transfer(FIM): 5 Shower Transfer(FIM): 5 Additional Short Term Goals: 1-Demonstrate ADL Tasks, 2-Verbalize Understanding , 3-ImproveStrength/Boogie 1=Demonstrate adherence to instructed precautions during ADL tasks. 2=Patient will verbalize/demonstrate understanding of assistive devices/ modifications for ADL. 3=Patient will improve strength/tolerance for activity to enable patient to perform ADL's. OT Intermediate Goals Health Outreach Worker Goals Time Frame: Jun 10, 2016 Eating (FIM): 6 Eating (QC): 6 Oral Hygiene (QC): 5 Grooming(FIM): 5 Bathing(FIM): 5 Shower/Bathe Self (QC): 5 Upper Body Dressing(FIM): 5 Upper Body Dressing (QC): 5 Lower Body Dressing(FIM): 5 Lower Body Dressing (QC): 5 On/Off Footwear (QC): 5 Toileting(FIM): 6 Toileting Hygiene (QC): 6 Transfers (B,C,W/C) (FIM): 5 Toilet/Commode Transfer(FIM): 5 Toilet/Commode Transfer (QC): 5 Shower Transfer(FIM): 4 Comprehension(FIM): 4 Expression (FIM): 4 Social Interaction(FIM): 5 Problem Solving(FIM): 4 Memory(FIM): 4 Additional Goals: 1-Demonstrate ADL Tasks, 2-Verbalize Understanding, 3- ImproveStrength/Boogie 1=Demonstrate adherence to instructed precautions during ADL tasks. 2=Patient will verbalize/demonstrate understanding of assistive devices/ modifications for ADL. 3=Patient will improve strength/tolerance for activity to enable patient to perform ADL's. OT Education/Plan Discharge Recommendations Plan/Recommendations: Continue POC Treatment Plan/Plan of Care Patient would benefit from OT for education, treatment and training to promote independence in ADL's, mobility, safety and/or upper extremity function for ADL' s. Plan of Care: ADL Retraining, Caregiver Training, Functional Mobility, UE Funct Exercise/Act Treatment Duration: Jun 10, 2016 Visits Per Week: 10-12 Minutes/Day (M-F): 60-90 Minutes/Day (Sat/Lam): 15-30 Agreement: Yes Rehab Potential: Fair Time/GCodes Start Time: 08:15 Stop Time: 09:30 Total Time Billed (hr/min): 75 Billed Treatment Time 1 visit-FA 1 (15 min) EX 4 (60 min) RAAD GARCIA May 27, 2016 08:34
[2016-05-27] MEDS: HYDROCHLOROTHIAZIDE 25 MG (HCTZ) TAB PO SCH (08:48)
[2016-05-27] MEDS: ASPIRIN E.C. 325 MG (ECOTRIN) TABLET PO SCH (08:48)
[2016-05-27] MEDS: VALSARTAN 80 MG (DIOVAN) TAB PO SCH (08:48)
[2016-05-27] MEDS: FAMOTIDINE 20 MG (PEPCID) TABLET PO SCH ×2 (08:48→19:57)
[2016-05-27] MEDS: amLODIPine 5 MG (NORVASC) TAB PO SCH (08:48)
--- NOTE | 2016-05-27 10:56 | Speech Therapy Daily Note ---
Speech Daily Progress Note Subjective The patient was seated upright in recliner upon entrance. The patient greeted the clinician appropriately and agreed to participate in the cognitive session on this date. Objective - A repetition of the cognitive screen was completed to ensure appropriate decision making ability prior to discharge. The Kaleb Cognitive Assessment ( MoCA) was completed (Version One) with the following results. - Visuospatial/Executive: The patient was unable to accurately draw clock complete trail-making, and copy a cube. - Naming: The patient was able to name three items accurately. - Memory: The patient was unable to recall any of five single words immediately and following a five minute delay. - Attention: The patient was able to repeat five digits forward, however, could not repeat three digits in reverse or serial seven subtraction. - Language: The patient was able to repeat short phrases, however, could not provide any 'f' words for word-finding task or find a similarity between two single words. - Orientation: The patient was oriented to place, only. - The patient demonstrated a score of +9/30 which correlates to a severe cognitive impairment. Assessment Assessment Current Status: Poor Progress Treatment Plan Continue Plan of Care Communication Comprehension: 3 Expression: 2 Social Cognition Social Interaction: 4 Problem Solvin Memory: 2 Speech Short Term Goals Short Term Goals Short Term Goals 1. The patient will demonstrated 80% accuracy with repetition of functional phrases. 2. The patient will demonstrate 80% accuracy with functional safety problem solving, independently. 3. The patient will demonstrate 80% accuracy with repetition of single words ( for transition into functional phrases). 4. The patient will demonstrate 80% accuracy with simple yes/no questions. Time Frame-STG: Two Weeks Speech Correction Goals Dust Collector Goals 1. The patient will demonstrated improved expressive communication for increased function and safety with ADL's in the least restrictive setting. Time Frame: Six Weeks Comprehension: 4 Expression: 4 Social Interaction: 5 Problem Solvin Memory: 4 Speech-Plan Treatment Plan Speech Therapy Treatment Plan: Continue Plan of Care Cognitive therapy to focus on functional memory, as well as, expressive language therapy to work towards improved word-finding. Treatment Duration: Jul 01, 2016 # of days/week Four to Five Visits Per Week: Four to Five Minutes/Day (M-F): 30 Rehab Potential: Fair Safety Risks/Education Teaching Recipient: Patient Teaching Methods: Discussion Response to Teaching: Return Demonstration, Reinforcement Needed Education Topics Provided: Orientation Strategies Time Speech Therapy Time In: 09:30 Speech Therapy Time Out: 10:00 Total Billed Time: 30 Billed Treatment Time 1, SUE CARPENTER May 27, 2016 10:56
--- NOTE | 2016-05-27 11:31 | Physical Therapy Daily Note ---
PT Daily Note-Current Subjective Patient in recliner sleeping pre tx, agrees to PT upon waking. Pleasant and cooperative. Pain Numeric Pain Scale: 0-No Pain Appearance Patient in recliner post tx, with chair alarm on, has nurse call, phone, tray, all needs met. Mental Status Patient Orientation: Person, Place, Situation Transfers Functional [place] Measure 0=Not Assessed/NA 4=Minimal Assistance 1=Total Assistance 5=Supervision or Setup 2=Maximal Assistance 6=Modified [place] 3=Moderate Assistance 7=Complete IndependenceIRFPAI Quality Coding Scale 6 Independent with activity with or without an assistive device 5 Patient requires set up or clean up by helper. Patient completes activity by themselves 4 Supervision or touching assist (CGA). [place] provide cues , steadying assist 3 The helper provides less than half the effort to complete the activity 2 The helper provides more than half the effort to complete the activity 1 Dependent. The helper does all the effort to complete an activity 7 Patient refused to complete or attempt activity 9 The patient did not perform the activity before the current illness or injury 88 Not attempted due to Medical conditions or safety concerns Transfers (B, C, W/C) (FIM): 4 Sit to/from Stand: 4 CGA, patient is unsteady with sit to stand and takes a few seconds to shift his weight forward, but he did not need any actual assistance with it, needs cues for safety and hand placement Gait Training Gait (FIM): 5 Distance: 600'x2 Gait Level of Assist: 5 Gait Persons Needed: 1 Gait Assistive Device: FWW very close supervision, occasionally shuffles feet Exercises Standing: Hip Abduction, Heel/toe raises, Marching, Mini squats Standing Reps: 20 Treatments ambulation, transfers, functional strengthening, patient was toileted once Assessment Current Status: Good Progress improving balance, strength, mobility, still problems with safety awareness, will often just let go of walker and transfer or try to walk to the bathroom PT Short Term Goals Short Term Goals Time Frame: May 27, 2016 Transfers (B,C,W/C) (FIM): 4 (CGA) Gait (FIM): 4 Gait Distance Comment: 150' Gait Level of Assist: 4 (CGA) Gait Assistive Device: FWW PT Hose Handler Goals Hose Handler Goals PT Hose Handler Goals Time Frame: Jun 10, 2016 Transfers (B,C,W/C) (FIM): 5 Sit to Lying (QC): 6 Lying-Sitting on Side/Bed(QC): 6 Sit to Stand (QC): 4 Rollin Roll Left to Right (QC): 6 Chair/Xjw-ia-Niuxn Xfer(QC): 4 Car Transfer (QC): 4 Gait (FIM): 5 Distance: 200' Walk 10 feet (QC): 4 Walk 10ft-Uneven Surface(QC): 4 Walk 50ft with 2 Turns (QC): 4 Walk 150 ft (QC): 4 Gait Level of Assist: 5 Gait Assistive Device: FWW Stairs (FIM): 2 # of Steps: 4 1 Step (curb) (QC): 4 4 Steps (QC): 4 12 Steps (QC): 88 Stairs Level Of Assist: 4 (CGA) Picking up an Object (QC): 4 PT Plan Problem List Problem List: Activity Tolerance, Functional Strength, Safety, Balance, Gait, Transfer Treatment/Plan Treatment Plan: Continue Plan of Care Treatment Plan: Bed Mobility, Education, Functional Activity Boogie, Functional Strength, Group Therapy, Gait, Safety, Therapeutic Exercise, Transfers Treatment Duration: Jun 10, 2016 Visits Per Week: 10-11 Minutes/Day (M-F): 60-90 Minutes/Day (Sat/Lam): 15-30 Safety Risks/Education Patient Education: Gait Training, Transfer Techniques, Safety Issues Teaching Recipient: Patient Teaching Methods: Demonstration, Discussion Response to Teaching: Reinforcement Needed Time/GCodes Time In: 1045 Time Out: 1130 Total Billed Treatment Time: 45 Total Billed Treatment 1 visit EX 15 min GT 30 min KELLEN ROY PT May 27, 2016 11:31
--- NOTE | 2016-05-27 11:42 | PM & R (SOAP) Progress Note ---
Subjective Subjective/Events-last exam Patient was seen in his room this AM.Patient Min assist for transfers Appreciate Dr Chapa notes and orders Appreciate Dr Reyes note and orders.Blood pressure better controlled Objective Exam Last Set of Vital Signs Vital Signs Date Time Temp Pulse Resp B/P Pulse Ox O2 Delivery O2 Flow Rate FiO2 05/27/16 06:00 98.1 80 20 132/70 98 Room Air Capillary Refill : I&O Intake and Output 05/27/16 00:00 Intake Total 610 ml Output Total 300 ml Balance 310 ml Intake Oral 610 ml Output Urine Total 300 ml # Voids 5 General: Alert, Cooperative, No Acute Distress HEENT: Atraumatic, PERRLA, EOMI, Mucous Memb Moist/[place], Other ([place]) Neck: Supple, No JVD Lungs: Clear to Auscultation Heart: Regular Rate Abdomen: Normal Bowel Sounds, Soft, No Tenderness Extremities: No Edema Neuro: Other (left HP with hip flex 3+/5 Knee flex/ext4/5 and Ankle dorsiflexion 4-/5 left shoulder 3+/5 distal 4/5 rt side Functional strength) Results Lab Laboratory Tests 05/26/16 08:15: Urine Bacteria NEGATIVE, Urine Bilirubin NEGATIVE, Urine Casts NONE, Urine Clarity CLEAR, Urine Color YELLOW, Urine Crystals NONE, Urine Culture Indicated NO, Urine Glucose (UA) NEGATIVE, Urine Ketones NEGATIVE, Urine Leukocyte Esterase 1+H, Urine Mucus LARGEH, Urine Nitrite NEGATIVE, Urine Protein NEGATIVE , Urine RBC NONE, Urine RBC (Auto) NEGATIVE, Urine Specific [place] 1.020, Urine Squamous Epithelial Cells 0-2, Urine Urobilinogen NORMAL, Urine WBC 0-2, Urine pH 5 Assessment/Plan Assessment 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 BRADY TAN MD May 27, 2016 11:42
--- NOTE | 2016-05-27 12:08 | Progress Note-Urology ---
Progress Note-Urology Progress Notes/Assess & Plan Progress/Assessment & Plan PVR WAS 44CC, STARTED ON DDAVP LAST EVENING, TOLERATES IT WELL Final Diagnosis NOCTURNAL ENURESIS MADAI ROJAS MD May 27, 2016 12:08
--- NOTE | 2016-05-27 15:18 | Physical Therapy Daily Note ---
PT Daily Note-Current Subjective "Oh sh"--stated when PT entered and introduced herself. Reports he is tired but agrees to therapy. Pain Numeric Pain Scale: 0-No Pain Location: No Pain Reported Transfers Functional [place] Measure 0=Not Assessed/NA 4=Minimal Assistance 1=Total Assistance 5=Supervision or Setup 2=Maximal Assistance 6=Modified [place] 3=Moderate Assistance 7=Complete IndependenceIRFPAI Quality Coding Scale 6 Independent with activity with or without an assistive device 5 Patient requires set up or clean up by helper. Patient completes activity by themselves 4 Supervision or touching assist (CGA). [place] provide cues , steadying assist 3 The helper provides less than half the effort to complete the activity 2 The helper provides more than half the effort to complete the activity 1 Dependent. The helper does all the effort to complete an activity 7 Patient refused to complete or attempt activity 9 The patient did not perform the activity before the current illness or injury 88 Not attempted due to Medical conditions or safety concerns Pt is SBA with all sit to stand transfers with occas reminders for hand placement. Gait Training Does the Patient Walk?: Yes Pt ambulated x 150 ft x 2 with FWW with CGA and occas cues for safety and keeping a straight line. Pt ambulated up/down 12 steps with handrails with SB- CGA. Pt able to use a reciprocal gait pattern on the steps. Stair Training Stairs (FIM): 4 (see description above) Stairs: Pattern: Reciprocal Exercises NuStep Minutes: 10 (to faciliate LE strength to improve functional transfers and gait. ) Assessment Current Status: Good Progress Pt is making functional gains; did well on the stairs. PT Short Term Goals Short Term Goals Time Frame: May 27, 2016 Transfers (B,C,W/C) (FIM): 4 (CGA) Gait (FIM): 4 (met) Gait Distance Comment: 150' Gait Level of Assist: 4 (CGA) Gait Assistive Device: FWW PT Cleaning Associate Goals Mcc Goals PT Cleaning Associate Goals Time Frame: Jun 10, 2016 Transfers (B,C,W/C) (FIM): 5 Sit to Lying (QC): 6 Lying-Sitting on Side/Bed(QC): 6 Sit to Stand (QC): 4 Rollin Roll Left to Right (QC): 6 Chair/Xts-hb-Blqtx Xfer(QC): 4 Car Transfer (QC): 4 Gait (FIM): 5 Distance: 200' Walk 10 feet (QC): 4 Walk 10ft-Uneven Surface(QC): 4 Walk 50ft with 2 Turns (QC): 4 Walk 150 ft (QC): 4 Gait Level of Assist: 5 Gait Assistive Device: FWW Stairs (FIM): 2 # of Steps: 4 1 Step (curb) (QC): 4 4 Steps (QC): 4 12 Steps (QC): 88 Stairs Level Of Assist: 4 (CGA) Picking up an Object (QC): 4 PT Plan Problem List Problem List: Activity Tolerance, Functional Strength, Safety, Balance, Gait, Transfer Treatment/Plan Treatment Plan: Continue Plan of Care Treatment Plan: Bed Mobility, Education, Functional Activity Boogie, Functional Strength, Group Therapy, Gait, Safety, Therapeutic Exercise, Transfers Treatment Duration: Jun 10, 2016 Visits Per Week: 10-11 Minutes/Day (M-F): 60-90 Minutes/Day (Sat/Lam): 15-30 Safety Risks/Education Patient Education: Safety Issues Teaching Recipient: Patient Teaching Methods: Discussion Response to Teaching: Reinforcement Needed Time/GCodes Time In: 1300 Time Out: 1330 Total Billed Treatment Time: 30 Total Billed Treatment visit EX 10 GT 20 RAAD DOSS PT May 27, 2016 15:17
[2016-05-27 18:26] VITALS: BP 110/70
[2016-05-27] MEDS: SIMvastatin 40 MG (ZOCOR) TAB PO SCH (19:57)
[2016-05-27] MEDS: DESMOPRESSIN 0.2 MG TAB (NON-FORMULARY) PO SCH (20:26)
[2016-05-28] MEDS ORDERED: ONDANSETRON 4 MG (ZOFRAN) ORAL DISSOLVE TAB PO PRN (03:30)
[2016-05-28] MEDS: SUCRALFATE 1 GM (CARAFATE) TAB PO SCH ×4 (05:57→21:51)
[2016-05-28] MEDS: PANTOPRAZOLE 40 MG (PROTONIX) TAB PO SCH (05:57)
[2016-05-28 06:00] VITALS: BP 126/73
--- NOTE | 2016-05-28 08:06 | Occupational Ther Daily Note ---
OT Current Status-Daily Note Subjective Pt alert, sitting in chair eating breakfast. Pt agreed to therapy. No c/o pain. Needed encouragement to take shower today. Mental Status/Objective Patient Orientation: Person, Place, Time, Situation Functional [place] Measure 0=Not Assessed/NA 4=Minimal Assistance 1=Total Assistance 5=Supervision or Setup 2=Maximal Assistance 6=Modified [place] 3=Moderate Assistance 7=Complete [place] ADL-Treatment Pt was able to feed self breakfast, needed assistance with opening milk carton. Then ambulated to bathroom with CGA using FWW to transfer into shower with CGA using FWW, grabbars and shower bench. Close SBA during shower for safety, pt bathed/dried self. After set up, pt was able to dress upper body by self then min A for lower body dressing to don over L foot. SBA to stand and hike pants over hips. Pt donned/doffed socks by self. Pt was able to take out/put in hearing aides by self. After therapy, pt sitting in recliner with feet elevated and safety measures in place. All needs met in room. Functional [place] Measure 0=Not Assessed/NA 4=Minimal Assistance 1=Total Assistance 5=Supervision or Setup 2=Maximal Assistance 6=Modified [place] 3=Moderate Assistance 7=Complete IndependenceIRFPAI Quality Coding Scale 6 Independent with activity with or without an assistive device 5 Patient requires set up or clean up by helper. Patient completes activity by themselves 4 Supervision or touching assist (CGA). [place] provide cues , steadying assist 3 The helper provides less than half the effort to complete the activity 2 The helper provides more than half the effort to complete the activity 1 Dependent. The helper does all the effort to complete an activity 7 Patient refused to complete or attempt activity 9 The patient did not perform the activity before the current illness or injury 88 Not attempted due to Medical conditions or safety concerns Eating (FIM): 5 Eating (QC): 5 Bathing (FIM): 5 Bathing Location: L Arm, R Arm, L Upper Leg, R Upper Leg, L Lower Leg ( including foot), R Lower Leg (including foot), Chest, Abdomen, Buttocks, Perineal Area Upper Body (FIM): 5 Upper Body Dressing (QC): 5 Lower Body Dressing (FIM): 4 Lower Body Dressing (QC): 4 On/Off Footwear (QC): 5 Shower Transfer(FIM): 4 OT Short Term Goals Short Term Goals Time Frame: May 27, 2016 Eating(FIM): 5 Grooming(FIM): 5 Bathing(FIM): 5 Upper Body Dressing(FIM): 5 Lower Body Dressing(FIM): 4 Toileting(FIM): 4 Transfers (B,C,W/C) (FIM): 4 (CGA) Toilet/Commode Transfer(FIM): 5 Shower Transfer(FIM): 5 Additional Short Term Goals: 1-Demonstrate ADL Tasks, 2-Verbalize Understanding , 3-ImproveStrength/Boogie 1=Demonstrate adherence to instructed precautions during ADL tasks. 2=Patient will verbalize/demonstrate understanding of assistive devices/ modifications for ADL. 3=Patient will improve strength/tolerance for activity to enable patient to perform ADL's. OT Levi Maker Goals Senior Care Goals Time Frame: Jun 10, 2016 Eating (FIM): 6 Eating (QC): 6 Oral Hygiene (QC): 5 Grooming(FIM): 5 Bathing(FIM): 5 Shower/Bathe Self (QC): 5 Upper Body Dressing(FIM): 5 Upper Body Dressing (QC): 5 Lower Body Dressing(FIM): 5 Lower Body Dressing (QC): 5 On/Off Footwear (QC): 5 Toileting(FIM): 6 Toileting Hygiene (QC): 6 Transfers (B,C,W/C) (FIM): 5 Toilet/Commode Transfer(FIM): 5 Toilet/Commode Transfer (QC): 5 Shower Transfer(FIM): 4 Comprehension(FIM): 4 Expression (FIM): 4 Social Interaction(FIM): 5 Problem Solving(FIM): 4 Memory(FIM): 4 Additional Goals: 1-Demonstrate ADL Tasks, 2-Verbalize Understanding, 3- ImproveStrength/Boogie 1=Demonstrate adherence to instructed precautions during ADL tasks. 2=Patient will verbalize/demonstrate understanding of assistive devices/ modifications for ADL. 3=Patient will improve strength/tolerance for activity to enable patient to perform ADL's. OT Education/Plan Discharge Recommendations Plan/Recommendations: Continue POC Treatment Plan/Plan of Care Patient would benefit from OT for education, treatment and training to promote independence in ADL's, mobility, safety and/or upper extremity function for ADL' s. Plan of Care: ADL Retraining, Caregiver Training, Functional Mobility, UE Funct Exercise/Act Treatment Duration: Jun 10, 2016 Visits Per Week: 10-12 Minutes/Day (M-F): 60-90 Minutes/Day (Sat/Lam): 15-30 Agreement: Yes Rehab Potential: Fair Time/GCodes Start Time: 07:00 Stop Time: 08:15 Total Time Billed (hr/min): 75 Billed Treatment Time 1 visit-ADL 5 (75 min) RAAD GARCIA May 28, 2016 08:06
--- NOTE | 2016-05-28 08:38 | PM & R (SOAP) Progress Note ---
Subjective Subjective/Events-last exam Patient was seen in his room this AM Doing Morning Dressing adls with OT Objective Exam Last Set of Vital Signs Vital Signs Date Time Temp Pulse Resp B/P Pulse Ox O2 Delivery O2 Flow Rate FiO2 05/28/16 06:00 98.2 72 20 126/73 98 Room Air Capillary Refill : I&O Intake and Output 05/28/16 00:00 Intake Total 650 ml Output Total 300 ml Balance 350 ml Intake Oral 650 ml Output Urine Total 300 ml # Voids 2 # Bowel Movements 1 General: Alert, Cooperative, No Acute Distress HEENT: Atraumatic, PERRLA, EOMI, Mucous Memb Moist/[place], Other (EGEGIK) Neck: Supple, No JVD Lungs: Clear to Auscultation Heart: Regular Rate Abdomen: Normal Bowel Sounds, Soft, No Tenderness Extremities: No Edema Neuro: Other (left HP with hip flex 3+/5 Knee flex/ext4/5 and Ankle dorsiflexion 4-/5 left shoulder 3+/5 distal 4/5 rt side Functional strength) Results Lab Laboratory Tests 05/26/16 08:15: Urine Bacteria NEGATIVE, Urine Bilirubin NEGATIVE, Urine Casts NONE, Urine Clarity CLEAR, Urine Color YELLOW, Urine Crystals NONE, Urine Culture Indicated NO, Urine Glucose (UA) NEGATIVE, Urine Ketones NEGATIVE, Urine Leukocyte Esterase 1+H, Urine Mucus LARGEH, Urine Nitrite NEGATIVE, Urine Protein NEGATIVE , Urine RBC NONE, Urine RBC (Auto) NEGATIVE, Urine Specific Ward 1.020, Urine Squamous Epithelial Cells 0-2, Urine Urobilinogen NORMAL, Urine WBC 0-2, Urine pH 5 Assessment/Plan Assessment 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 Discharge set tentatively for next week Will f/u with SW re BRADY Lockwood MD May 28, 2016 08:38
--- NOTE | 2016-05-28 09:39 | Speech Therapy Daily Note ---
Speech Daily Progress Note Subjective The patient was seated upright in recliner upon entrance. The patient greeted the clinician appropriately and agreed to participate in the speech and language treatment session on this date. Objective Word-Finding: The patient was provided a specific category and letter. The patient was asked to provide a specific word that began with the letter and fit into the category. The patient demonstrated improved accuracy with the task on this date, displaying 65% accuracy, however, continuing to require moderate clinician category cues. Assessment Assessment Current Status: Fair Progress Treatment Plan Continue Plan of Care Communication Comprehension: 3 Expression: 3 Social Cognition Social Interaction: 4 Problem Solvin Memory: 3 Speech Short Term Goals Short Term Goals Short Term Goals 1. The patient will demonstrated 80% accuracy with repetition of functional phrases. 2. The patient will demonstrate 80% accuracy with functional safety problem solving, independently. 3. The patient will demonstrate 80% accuracy with repetition of single words ( for transition into functional phrases). 4. The patient will demonstrate 80% accuracy with simple yes/no questions. Time Frame-STG: Two Weeks Speech Displayer Merchandise Goals [facility] Goals 1. The patient will demonstrated improved expressive communication for increased function and safety with ADL's in the least restrictive setting. Time Frame: Six Weeks Comprehension: 4 Expression: 4 Social Interaction: 5 Problem Solvin Memory: 4 Speech-Plan Treatment Plan Speech Therapy Treatment Plan: Continue Plan of Care Continue cognitive and expressive language therapy, as recommended. Treatment Duration: Jul 01, 2016 # of days/week Four to Five Visits Per Week: Four to Five Minutes/Day (M-F): 30 Rehab Potential: Fair Safety Risks/Education Teaching Recipient: Patient Teaching Methods: Demonstration Response to Teaching: Return Demonstration, Reinforcement Needed Education Topics Provided: Word-Finding Strategies Time Speech Therapy Time In: 08:30 Speech Therapy Time Out: 09:00 Total Billed Time: 30 Billed Treatment Time 1, SUE CARPENTER May 28, 2016 09:39
--- NOTE | 2016-05-28 09:42 | Progress Note-Urology ---
Progress Note-Urology Progress Notes/Assess & Plan Progress/Assessment & Plan DDAVP NOT HELPING, CHANHE TO DETROL LA Final Diagnosis NOCTURIA MADAI RJOAS MD May 28, 2016 09:42
--- NOTE | 2016-05-28 09:45 | Physical Therapy Daily Note ---
PT Daily Note-Current Subjective Patient in recliner pre tx, agrees to PT, pleasant and cooperative. No complaints of pain. Appearance Patient in recliner post tx, has chair alarm, nurse call, phone, tray, all needs met. Mental Status Patient Orientation: Person, Place, Situation Transfers Functional [place] Measure 0=Not Assessed/NA 4=Minimal Assistance 1=Total Assistance 5=Supervision or Setup 2=Maximal Assistance 6=Modified [place] 3=Moderate Assistance 7=Complete IndependenceIRFPAI Quality Coding Scale 6 Independent with activity with or without an assistive device 5 Patient requires set up or clean up by helper. Patient completes activity by themselves 4 Supervision or touching assist (CGA). [place] provide cues , steadying assist 3 The helper provides less than half the effort to complete the activity 2 The helper provides more than half the effort to complete the activity 1 Dependent. The helper does all the effort to complete an activity 7 Patient refused to complete or attempt activity 9 The patient did not perform the activity before the current illness or injury 88 Not attempted due to Medical conditions or safety concerns Transfers (B, C, W/C) (FIM): 5 Sit to/from Stand: 5 Bed to/from Chair: 5 Patient needs cues for safety and hand placement but no assistance. Gait Training Gait (FIM): 5 Distance: 600'x2 Gait Level of Assist: 5 Gait Persons Needed: 1 Gait Assistive Device: FWW Close supervision but no assistance, occasional unsteadiness when turning but no LOB. Stair Training Stair Training: Handrails/: 2 handrails Stairs (FIM): 5 #of Steps: 12 Stairs: Pattern: Step to Level of Assist: 5 cues for safety and step pattern Exercises NuStep Minutes: 15 NuStep Workload: 5 Treatments transfers, ambulation, stair training, functional strengthening Assessment Current Status: Fair Progress balance and mobility slowly improving PT Short Term Goals Short Term Goals Time Frame: May 27, 2016 Transfers (B,C,W/C) (FIM): 4 (CGA) Gait (FIM): 4 Gait Distance Comment: 150' Gait Level of Assist: 4 (CGA) Gait Assistive Device: FWW PT Snf Goals Snf Goals PT Claim Service Representative Goals Time Frame: Jun 10, 2016 Transfers (B,C,W/C) (FIM): 5 Sit to Lying (QC): 6 Lying-Sitting on Side/Bed(QC): 6 Sit to Stand (QC): 4 Rollin Roll Left to Right (QC): 6 Chair/Mhu-dk-Ipvhr Xfer(QC): 4 Car Transfer (QC): 4 Gait (FIM): 5 Distance: 200' Walk 10 feet (QC): 4 Walk 10ft-Uneven Surface(QC): 4 Walk 50ft with 2 Turns (QC): 4 Walk 150 ft (QC): 4 Gait Level of Assist: 5 Gait Assistive Device: FWW Stairs (FIM): 2 # of Steps: 4 1 Step (curb) (QC): 4 4 Steps (QC): 4 12 Steps (QC): 88 Stairs Level Of Assist: 4 (CGA) Picking up an Object (QC): 4 PT Plan Problem List Problem List: Activity Tolerance, Functional Strength, Safety, Balance, Gait, Transfer, Bed Mobility Treatment/Plan Treatment Plan: Continue Plan of Care Treatment Plan: Bed Mobility, Education, Functional Activity Boogie, Functional Strength, Group Therapy, Gait, Safety, Therapeutic Exercise, Transfers Treatment Duration: Jun 10, 2016 Visits Per Week: 10-11 Minutes/Day (M-F): 60-90 Minutes/Day (Sat/Lam): 15-30 Safety Risks/Education Patient Education: Gait Training, Transfer Techniques, Steps, Safety Issues Teaching Recipient: Patient Teaching Methods: Demonstration, Discussion Response to Teaching: Reinforcement Needed Time/GCodes Time In: 900 Time Out: 945 Total Billed Treatment Time: 45 Total Billed Treatment 1 visit EX 15 min GT 30 min KELLEN ROY PT May 28, 2016 09:45
[2016-05-28] MEDS: HYDROCHLOROTHIAZIDE 25 MG (HCTZ) TAB PO SCH (09:55)
[2016-05-28] MEDS: amLODIPine 5 MG (NORVASC) TAB PO SCH (09:55)
[2016-05-28] MEDS: ASPIRIN E.C. 325 MG (ECOTRIN) TABLET PO SCH (09:55)
[2016-05-28] MEDS: VALSARTAN 80 MG (DIOVAN) TAB PO SCH (09:55)
[2016-05-28] MEDS: FAMOTIDINE 20 MG (PEPCID) TABLET PO SCH ×2 (09:55→21:52)
--- NOTE | 2016-05-28 11:07 | Progress Note-Hospitalist ---
Progress Note HPI/CC on Admission Mr. Montanez is a pleasant 85-year-old white male who is apparently several weeks out from right sided CVA with left-sided hemiparesis. This apparently recurrent. He has a history of hypertension and hyperlipidemia. He also apparently has history of iron deficiency anemia felt to be due to upper tract ulcers noted on EGD several months ago. He was started on pantoprazole and apparently Carafate. At that time he was on aspirin and possibly Plavix. 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 He states that he is making progress and currently he is only concerned about apparently recent onset nocturnal incontinence. He denies any previous problems with incontinence. He reports that it is large volume and he is not having any problems during the day. He does not believe there is been in the change in medication nor can I find any change in medication in his medical record since his transfer to our facility. He denies dysuria or increased frequency. He is unsure as to whether or not he is emptying his bladder when he is finished voiding. He denies flank pain and suprapubic pain or abdominal pain. His appetite has been normal and he denies chills fever and reports that if anything fatigue is been improving. Physical therapy has noted slow improvement with stamina and there has been some improvement in cognitive capability. Progress Notes/Assess & Plan Date Seen 05/28/16 Diagonsis/Assessment & Plan Chart Review: No fever Vitals stable Was contacted last night due to pt experiencing dizziness and nausea. I gave him Zofran and monitored and it resolved. Patient Interview: Pt states that nausea medicine helped him greatly. Pt states that he feels good. Physical exam was stable. Pt has no requests at this time. AFVSS except BP mild elevation last night but doing well since Norvasc RRR, CTAB No edema Assessment: CVA recurrent type HTN HLP Isolated dizziness with nausea episode resolved with Zofran Plan: Norvas Monitor BP Zofran when necessary Scribed by Cory Soni under the direct supervision of Dr. Carvajal. YONI CARVAJAL DO May 28, 2016 11:07
--- NOTE | 2016-05-28 14:11 | Physical Therapy Daily Note ---
PT Daily Note-Current Subjective Patient is up in restroom independently. Apparently, the chair alarm was turned off. Education with patient on using call light for assistance. Pain Numeric Pain Scale: 0-No Pain Location: No Pain Reported Mental Status Patient Orientation: Confused Transfers Functional [place] Measure 0=Not Assessed/NA 4=Minimal Assistance 1=Total Assistance 5=Supervision or Setup 2=Maximal Assistance 6=Modified [place] 3=Moderate Assistance 7=Complete IndependenceIRFPAI Quality Coding Scale 6 Independent with activity with or without an assistive device 5 Patient requires set up or clean up by helper. Patient completes activity by themselves 4 Supervision or touching assist (CGA). [place] provide cues , steadying assist 3 The helper provides less than half the effort to complete the activity 2 The helper provides more than half the effort to complete the activity 1 Dependent. The helper does all the effort to complete an activity 7 Patient refused to complete or attempt activity 9 The patient did not perform the activity before the current illness or injury 88 Not attempted due to Medical conditions or safety concerns Transfers (B, C, W/C) (FIM): 5 Scootin Sit to/from Stand: 5 Sit to Stand (QC): 5 Gait Training Does the Patient Walk?: Yes Gait (FIM): 5 Distance (FIM): 3=150 ft Distance: 500' Gait Level of Assist: 5 Gait Persons Needed: 1 Gait Assistive Device: FWW extended UE's with FWW with education and skilled verbal instruction for proper body placement in FWW Assessment Patient ambulated to Group Therapy. Patient appears very confused, however, very happy. Patient continues to have difficulty retaining simple direction for safety concerns. PT Short Term Goals Short Term Goals Time Frame: May 27, 2016 Transfers (B,C,W/C) (FIM): 4 (CGA) Gait (FIM): 4 Gait Distance Comment: 150' Gait Level of Assist: 4 (CGA) Gait Assistive Device: FWW PT Custodial Goals Custodial Goals PT Custodial Goals Time Frame: Jun 10, 2016 Transfers (B,C,W/C) (FIM): 5 Sit to Lying (QC): 6 Lying-Sitting on Side/Bed(QC): 6 Sit to Stand (QC): 4 Rollin Roll Left to Right (QC): 6 Chair/Ufn-an-Zgcdg Xfer(QC): 4 Car Transfer (QC): 4 Gait (FIM): 5 Distance: 200' Walk 10 feet (QC): 4 Walk 10ft-Uneven Surface(QC): 4 Walk 50ft with 2 Turns (QC): 4 Walk 150 ft (QC): 4 Gait Level of Assist: 5 Gait Assistive Device: FWW Stairs (FIM): 2 # of Steps: 4 1 Step (curb) (QC): 4 4 Steps (QC): 4 12 Steps (QC): 88 Stairs Level Of Assist: 4 (CGA) Picking up an Object (QC): 4 PT Plan Treatment/Plan Treatment Plan: Continue Plan of Care Treatment Plan: Bed Mobility, Education, Functional Activity Boogie, Functional Strength, Group Therapy, Gait, Safety, Therapeutic Exercise, Transfers Treatment Duration: Jun 10, 2016 Visits Per Week: 10-11 Minutes/Day (M-F): 60-90 Minutes/Day (Sat/Lam): 15-30 Time/GCodes Time In: 1240 Time Out: 1300 Total Billed Treatment Time: 20 Total Billed Treatment 1 visit GT 20 min ARJUN JOY PT May 28, 2016 14:11
--- NOTE | 2016-05-28 14:45 | Physical Therapy Daily Note ---
PT Daily Note-Current Subjective No c/o. Pain Numeric Pain Scale: 0-No Pain Location: No Pain Reported Mental Status Patient Orientation: Confused Transfers Functional [place] Measure 0=Not Assessed/NA 4=Minimal Assistance 1=Total Assistance 5=Supervision or Setup 2=Maximal Assistance 6=Modified [place] 3=Moderate Assistance 7=Complete IndependenceIRFPAI Quality Coding Scale 6 Independent with activity with or without an assistive device 5 Patient requires set up or clean up by helper. Patient completes activity by themselves 4 Supervision or touching assist (CGA). [place] provide cues , steadying assist 3 The helper provides less than half the effort to complete the activity 2 The helper provides more than half the effort to complete the activity 1 Dependent. The helper does all the effort to complete an activity 7 Patient refused to complete or attempt activity 9 The patient did not perform the activity before the current illness or injury 88 Not attempted due to Medical conditions or safety concerns Transfers (B, C, W/C) (FIM): 5 Scootin Sit to/from Stand: 5 Gait Training Does the Patient Walk?: Yes Gait (FIM): 5 Distance (FIM): 3=150 ft Distance: 250' Gait Level of Assist: 5 Gait Assistive Device: FWW extended UE's with FWW use Assessment Patient appears to be very fatigues and returned to recliner with chair alarm activated in room with needs met. Patient is cognitively limited. And demonstrates no safety awareness or appropriate response to safety concerns by staff. PT Short Term Goals Short Term Goals Time Frame: May 27, 2016 Transfers (B,C,W/C) (FIM): 4 (CGA) Gait (FIM): 4 Gait Distance Comment: 150' Gait Level of Assist: 4 (CGA) Gait Assistive Device: FWW PT Harp Action Assembler Goals Assisted Goals PT Assisted Goals Time Frame: Jun 10, 2016 Transfers (B,C,W/C) (FIM): 5 Sit to Lying (QC): 6 Lying-Sitting on Side/Bed(QC): 6 Sit to Stand (QC): 4 Rollin Roll Left to Right (QC): 6 Chair/Ieg-zr-Lzbmu Xfer(QC): 4 Car Transfer (QC): 4 Gait (FIM): 5 Distance: 200' Walk 10 feet (QC): 4 Walk 10ft-Uneven Surface(QC): 4 Walk 50ft with 2 Turns (QC): 4 Walk 150 ft (QC): 4 Gait Level of Assist: 5 Gait Assistive Device: FWW Stairs (FIM): 2 # of Steps: 4 1 Step (curb) (QC): 4 4 Steps (QC): 4 12 Steps (QC): 88 Stairs Level Of Assist: 4 (CGA) Picking up an Object (QC): 4 PT Plan Treatment/Plan Treatment Plan: Continue Plan of Care Treatment Plan: Bed Mobility, Education, Functional Activity Boogie, Functional Strength, Group Therapy, Gait, Safety, Therapeutic Exercise, Transfers Treatment Duration: Jun 10, 2016 Visits Per Week: 10-11 Minutes/Day (M-F): 60-90 Minutes/Day (Sat/Lam): 15-30 Time/GCodes Time In: 1425 Time Out: 1435 Total Billed Treatment Time: 10 Total Billed Treatment 1 visit GT 10 min ARJUN JOY PT May 28, 2016 14:45
[2016-05-28 18:05] VITALS: BP 118/74
[2016-05-28] MEDS: TOLTERODINE LA 4 MG (DETROL) CAP PO SCH (21:51)
[2016-05-28] MEDS: SIMvastatin 40 MG (ZOCOR) TAB PO SCH (21:52)
[2016-05-29 05:00] VITALS: BP 152/67
[2016-05-29] MEDS: SUCRALFATE 1 GM (CARAFATE) TAB PO SCH ×4 (06:39→20:19)
[2016-05-29] MEDS: PANTOPRAZOLE 40 MG (PROTONIX) TAB PO SCH (06:39)
[2016-05-29 09:19] VITALS: BP 115/74
[2016-05-29] MEDS: HYDROCHLOROTHIAZIDE 25 MG (HCTZ) TAB PO SCH (09:28)
[2016-05-29] MEDS: FAMOTIDINE 20 MG (PEPCID) TABLET PO SCH ×2 (09:28→20:19)
[2016-05-29] MEDS: ASPIRIN E.C. 325 MG (ECOTRIN) TABLET PO SCH (09:29)
[2016-05-29] MEDS: amLODIPine 5 MG (NORVASC) TAB PO SCH (09:29)
[2016-05-29] MEDS: VALSARTAN 80 MG (DIOVAN) TAB PO SCH (09:29)
--- NOTE | 2016-05-29 10:43 | Physical Therapy Daily Note ---
PT Daily Note-Current Subjective Pt. smiles and agrees to Rx. Pain Numeric Pain Scale: 0-No Pain Transfers Functional [place] Measure 0=Not Assessed/NA 4=Minimal Assistance 1=Total Assistance 5=Supervision or Setup 2=Maximal Assistance 6=Modified [place] 3=Moderate Assistance 7=Complete IndependenceIRFPAI Quality Coding Scale 6 Independent with activity with or without an assistive device 5 Patient requires set up or clean up by helper. Patient completes activity by themselves 4 Supervision or touching assist (CGA). [place] provide cues , steadying assist 3 The helper provides less than half the effort to complete the activity 2 The helper provides more than half the effort to complete the activity 1 Dependent. The helper does all the effort to complete an activity 7 Patient refused to complete or attempt activity 9 The patient did not perform the activity before the current illness or injury 88 Not attempted due to Medical conditions or safety concerns Transfers (B, C, W/C) (FIM): 5 Scootin Rollin Supine to/from Sit: 5 Sit to/from Stand: 5 Gait Training Does the Patient Walk?: Yes Gait (FIM): 5 Distance (FIM): 3=150 ft Gait Level of Assist: 5 Gait Persons Needed: 1 Gait Assistive Device: FWW Exercises NuStep Minutes: 12 NuStep Workload: 3 Assessment Current Status: Good Progress PT Short Term Goals Short Term Goals Time Frame: May 27, 2016 Transfers (B,C,W/C) (FIM): 4 (CGA) Gait (FIM): 4 Gait Distance Comment: 150' Gait Level of Assist: 4 (CGA) Gait Assistive Device: FWW PT Sorter Upholstery Parts Goals Sorter Upholstery Parts Goals PT Senior Living Goals Time Frame: Jun 10, 2016 Transfers (B,C,W/C) (FIM): 5 Sit to Lying (QC): 6 Lying-Sitting on Side/Bed(QC): 6 Sit to Stand (QC): 4 Rollin Roll Left to Right (QC): 6 Chair/Oha-we-Spvrg Xfer(QC): 4 Car Transfer (QC): 4 Gait (FIM): 5 Distance: 200' Walk 10 feet (QC): 4 Walk 10ft-Uneven Surface(QC): 4 Walk 50ft with 2 Turns (QC): 4 Walk 150 ft (QC): 4 Gait Level of Assist: 5 Gait Assistive Device: FWW Stairs (FIM): 2 # of Steps: 4 1 Step (curb) (QC): 4 4 Steps (QC): 4 12 Steps (QC): 88 Stairs Level Of Assist: 4 (CGA) Picking up an Object (QC): 4 PT Plan Treatment/Plan Treatment Plan: Continue Plan of Care Treatment Plan: Bed Mobility, Education, Functional Activity Boogie, Functional Strength, Group Therapy, Gait, Safety, Therapeutic Exercise, Transfers Treatment Duration: Jun 10, 2016 Visits Per Week: 10-11 Minutes/Day (M-F): 60-90 Minutes/Day (Sat/Lam): 15-30 Safety Risks/Education Patient Education: Gait Training, Transfer Techniques, Correct Positioning, Safety Issues Teaching Recipient: Patient Teaching Methods: Demonstration, Discussion Response to Teaching: Verbalize Understanding, Return Demonstration, Reinforcement Needed Time/GCodes Time In: 820 Time Out: 840 Total Billed Treatment Time: 20 Total Billed Treatment 1,EX20m G Codes Necessary: ELY Quesada SENIOR AGRICULTURAL ASSISTANT May 29, 2016 10:43
[2016-05-29 17:56] VITALS: BP 147/69
[2016-05-29] MEDS: SIMvastatin 40 MG (ZOCOR) TAB PO SCH (20:19)
[2016-05-29] MEDS: TOLTERODINE LA 4 MG (DETROL) CAP PO SCH (20:19)
[2016-05-30 05:34] VITALS: BP 159/67
[2016-05-30] MEDS: PANTOPRAZOLE 40 MG (PROTONIX) TAB PO SCH (06:14)
[2016-05-30] MEDS: SUCRALFATE 1 GM (CARAFATE) TAB PO SCH ×4 (06:14→20:00)
[2016-05-30 08:00] VITALS: BP 118/70
[2016-05-30] MEDS: HYDROCHLOROTHIAZIDE 25 MG (HCTZ) TAB PO SCH (08:09)
[2016-05-30] MEDS: amLODIPine 5 MG (NORVASC) TAB PO SCH (08:09)
[2016-05-30] MEDS: ASPIRIN E.C. 325 MG (ECOTRIN) TABLET PO SCH (08:10)
[2016-05-30] MEDS: FAMOTIDINE 20 MG (PEPCID) TABLET PO SCH ×2 (08:10→20:00)
[2016-05-30] MEDS: VALSARTAN 80 MG (DIOVAN) TAB PO SCH (08:10)
--- NOTE | 2016-05-30 09:52 | Progress Note-Urology ---
Progress Note-Urology Progress Notes/Assess & Plan Progress/Assessment & Plan TOLERATES DETROL LA WELL, NO HELP YET, TOLD HIM TAKES A GOOD 2 WEEKS TO WORK Final Diagnosis NOCTURIA MADAI ROJAS MD May 30, 2016 09:52
[2016-05-30 16:43] VITALS: BP 130/77
[2016-05-30] MEDS: TOLTERODINE LA 4 MG (DETROL) CAP PO SCH (20:00)
[2016-05-30] MEDS: SIMvastatin 40 MG (ZOCOR) TAB PO SCH (20:00)
[2016-05-31 05:52] VITALS: BP 154/72
[2016-05-31] MEDS: SUCRALFATE 1 GM (CARAFATE) TAB PO SCH ×4 (06:18→20:17)
[2016-05-31] MEDS: PANTOPRAZOLE 40 MG (PROTONIX) TAB PO SCH (06:18)
[2016-05-31] MEDS: amLODIPine 5 MG (NORVASC) TAB PO SCH (09:27)
[2016-05-31] MEDS: ASPIRIN E.C. 325 MG (ECOTRIN) TABLET PO SCH (09:27)
[2016-05-31] MEDS: VALSARTAN 80 MG (DIOVAN) TAB PO SCH (09:27)
[2016-05-31] MEDS: HYDROCHLOROTHIAZIDE 25 MG (HCTZ) TAB PO SCH (09:27)
[2016-05-31] MEDS: FAMOTIDINE 20 MG (PEPCID) TABLET PO SCH ×2 (09:27→20:17)
--- NOTE | 2016-05-31 09:49 | Physical Therapy Daily Note ---
PT Daily Note-Current Subjective Patient in chair pre tx, agrees to PT, pleasant and cooperative, no complaints of pain. Appearance Patient in chair post tx with chair alarm, phone, tray, nurse call, all needs met. Mental Status Patient Orientation: Confused Transfers Functional [place] Measure 0=Not Assessed/NA 4=Minimal Assistance 1=Total Assistance 5=Supervision or Setup 2=Maximal Assistance 6=Modified [place] 3=Moderate Assistance 7=Complete IndependenceIRFPAI Quality Coding Scale 6 Independent with activity with or without an assistive device 5 Patient requires set up or clean up by helper. Patient completes activity by themselves 4 Supervision or touching assist (CGA). [place] provide cues , steadying assist 3 The helper provides less than half the effort to complete the activity 2 The helper provides more than half the effort to complete the activity 1 Dependent. The helper does all the effort to complete an activity 7 Patient refused to complete or attempt activity 9 The patient did not perform the activity before the current illness or injury 88 Not attempted due to Medical conditions or safety concerns Transfers (B, C, W/C) (FIM): 5 Scootin Rollin Roll Left to Right (QC): 6 Supine to/from Sit: 6 Sit to/from Stand: 5 Sit to Lying (QC): 6 Sit to Stand (QC): 4 Chair/Gly-yy-Sbpqr Xfer(QC): 4 Bed to/from Chair: 5 Car Transfer (QC): 88 bed mobility mod I, stand pivot SBA, needs close supervision because will often demonstrate unsafe behavior such as getting up from sitting using the walker to pull from or walking to the bathroom without using the walker Gait Training Gait (FIM): 5 Distance: 600'x2 Walk 10 feet (QC): 4 Walk 50 ft with 2 Turns(QC): 4 Walk 150 ft (QC): 4 Walking 10ft/uneven surface-QC: 4 Gait Level of Assist: 5 Gait Persons Needed: 1 Gait Assistive Device: FWW Patient can ambulate 600' with a rolling walker with SBA (including 10' over an uneven surface like carpet and 50' with at least 2 turns of 90 degrees), close supervision and cues for safety and direction Stair Training Stair Training: Handrails/: 2 handrails Stairs (FIM): 5 #of Steps: 12 1 Step (curb) (QC): 4 4 Steps (QC): 4 12 Steps (QC): 4 Stairs: Pattern: Step to Level of Assist: 5 cues for step pattern and safety, occasionally will be retropulsive but has not needed any actual assist to correct that Exercises NuStep Minutes: 15 NuStep Workload: 5 Treatments bed mobility and transfer training, ambulation, stair training, functional strengthening, patient was also toileted once for a BM Assessment Current Status: Fair Progress patient is now at least SBA with all mobility PT Short Term Goals Short Term Goals Time Frame: May 27, 2016 Transfers (B,C,W/C) (FIM): 4 (CGA) Gait (FIM): 4 Gait Distance Comment: 150' Gait Level of Assist: 4 (CGA) Gait Assistive Device: FWW PT Operator And Truck Driver Goals Operator And Truck Driver Goals PT Operator And Truck Driver Goals Time Frame: Jun 10, 2016 Transfers (B,C,W/C) (FIM): 5 (met) Sit to Lying (QC): 6 (met) Lying-Sitting on Side/Bed(QC): 6 (met) Sit to Stand (QC): 4 (metmet) Rollin (met) Roll Left to Right (QC): 6 (met) Chair/Sqi-qp-Zzmyu Xfer(QC): 4 (met) Car Transfer (QC): 4 Gait (FIM): 5 (met) Distance: 200' Walk 10 feet (QC): 4 (met) Walk 10ft-Uneven Surface(QC): 4 (met) Walk 50ft with 2 Turns (QC): 4 (met) Walk 150 ft (QC): 4 (met) Gait Level of Assist: 5 (et) Gait Assistive Device: FWW Stairs (FIM): 2 (met) # of Steps: 4 (met) 1 Step (curb) (QC): 4 (met) 4 Steps (QC): 4 (met) 12 Steps (QC): 88 Stairs Level Of Assist: 4 (CGA) Picking up an Object (QC): 4 PT Plan Problem List Problem List: Activity Tolerance, Functional Strength, Safety, Balance, Gait, Transfer Treatment/Plan Treatment Plan: Continue Plan of Care Treatment Plan: Bed Mobility, Education, Functional Activity Boogie, Functional Strength, Group Therapy, Gait, Safety, Therapeutic Exercise, Transfers Treatment Duration: Jun 10, 2016 Visits Per Week: 10-11 Minutes/Day (M-F): 60-90 Minutes/Day (Sat/Lam): 15-30 Safety Risks/Education Patient Education: Gait Training, Transfer Techniques, Steps, Safety Issues Teaching Recipient: Patient Teaching Methods: Demonstration, Discussion Response to Teaching: Reinforcement Needed Time/GCodes Time In: 900 Time Out: 945 Total Billed Treatment Time: 45 Total Billed Treatment 1 visit FA 15 min EX 15 min GT 15 min KELLEN ROY PT May 31, 2016 09:49
--- NOTE | 2016-05-31 11:15 | Speech Therapy Daily Note ---
Speech Daily Progress Note Subjective The patient was seated upright in recliner upon entrance. The patient greeted the clinician appropriately and agreed to participate in the speech and language treatment session on this date. Objective Word-Finding: The patient was provided a specific category and letter. The patient was asked to provide a specific word that began with the letter and fit into the category. The patient demonstrated consistent/stable accuracy with the task on this date, displaying 62% accuracy (+13/21), however, continuing to require moderate clinician category cues. Assessment Assessment Current Status: Fair Progress Treatment Plan Continue Plan of Care Communication Comprehension: 3 Expression: 2 Social Cognition Social Interaction: 4 Problem Solvin Memory: 2 Speech Short Term Goals Short Term Goals Short Term Goals 1. The patient will demonstrated 80% accuracy with repetition of functional phrases. 2. The patient will demonstrate 80% accuracy with functional safety problem solving, independently. 3. The patient will demonstrate 80% accuracy with repetition of single words ( for transition into functional phrases). 4. The patient will demonstrate 80% accuracy with simple yes/no questions. Time Frame-STG: Two Weeks Speech Long-Term Goals Environmental Health Sanitarian Goals 1. The patient will demonstrated improved expressive communication for increased function and safety with ADL's in the least restrictive setting. Time Frame: Six Weeks Comprehension: 4 Expression: 4 Social Interaction: 5 Problem Solvin Memory: 4 Speech-Plan Treatment Plan Speech Therapy Treatment Plan: Continue Plan of Care Skilled speech therapy to target functional memory and word-finding. Treatment Duration: Jul 01, 2016 # of days/week Four to Five Visits Per Week: Four to Five Minutes/Day (M-F): 30 Rehab Potential: Fair Safety Risks/Education Teaching Recipient: Patient Teaching Methods: Demonstration, Discussion Response to Teaching: Return Demonstration, Reinforcement Needed Education Topics Provided: Word-Finding Strategies Time Speech Therapy Time In: 09:45 Speech Therapy Time Out: 10:15 Total Billed Time: 30 Billed Treatment Time Fauzia KIERAASHVIN LAMBERTDanielaSUE ST May 31, 2016 11:15
--- NOTE | 2016-05-31 11:49 | Progress Note-Hospitalist ---
Progress Note HPI/CC on Admission Mr. Montanez is a pleasant 85-year-old white male who is apparently several weeks out from right sided CVA with left-sided hemiparesis. This apparently recurrent. He has a history of hypertension and hyperlipidemia. He also apparently has history of iron deficiency anemia felt to be due to upper tract ulcers noted on EGD several months ago. He was started on pantoprazole and apparently Carafate. At that time he was on aspirin and possibly Plavix. He does have some memory impairment from his stroke in his care apparently transpired in the [place]. He states that he is making progress and currently he is only concerned about apparently recent onset nocturnal incontinence. He denies any previous problems with incontinence. He reports that it is large volume and he is not having any problems during the day. He does not believe there is been in the change in medication nor can I find any change in medication in his medical record since his transfer to our facility. He denies dysuria or increased frequency. He is unsure as to whether or not he is emptying his bladder when he is finished voiding. He denies flank pain and suprapubic pain or abdominal pain. His appetite has been normal and he denies chills fever and reports that if anything fatigue is been improving. Physical therapy has noted slow improvement with stamina and there has been some improvement in cognitive capability. Progress Notes/Assess & Plan Date Seen 05/31/16 Diagonsis/Assessment & Plan Patient doing well and has no complaints Eating very well Blood pressure still slightly labile AFVSS except BP mild elevation at night but doing well since Norvasc RRR, CTAB No edema Assessment: CVA recurrent type HTN HLP Isolated dizziness with nausea episode resolved with Zofran Plan: [facility] Monitor BP Zofran when necessary YONI GALAN DO May 31, 2016 11:49
--- NOTE | 2016-05-31 15:08 | Therapy Group Daily Note ---
Therapy Daily Group Note Patient Education Topic Other List Below Exercises LE Seated Exercise, ROM, UE Exercise Other/Notes Pt. seen this date for group therapy. Pt. participated in memory/socialization exercises with focus to remember three things about other members of group. Pt. then participated in education regarding ways to keep memory activity during advancing age. Pt. engaged well and tolerated this well. Very social during group. Pt. also participated in group activity with memory game, in which pts. were asked to remember where specific pictures were. Pt. tolerated this as well. All needs met back in room after pt. ambulated with CGA. 1, GRP Start Time: 13:00 Stop Time: 14:05 Total Billed Treatment Time: 65 Total Billed Treatment 1, GRP SAQIB ADAM OT May 31, 2016 15:08
--- NOTE | 2016-05-31 16:38 | Occupational Ther Daily Note ---
OT Current Status-Daily Note Subjective No pain reported. Pt. smiling when OT walked in room. Appearance Pt.'s speech more garbled today with this therapist. Agrees to shower with encouragement. Mental Status/Objective Patient Orientation: Unable to Assess Functional [place] Measure 0=Not Assessed/NA 4=Minimal Assistance 1=Total Assistance 5=Supervision or Setup 2=Maximal Assistance 6=Modified [place] 3=Moderate Assistance 7=Complete [place] ADL-Treatment Functional [place] Measure 0=Not Assessed/NA 4=Minimal Assistance 1=Total Assistance 5=Supervision or Setup 2=Maximal Assistance 6=Modified [place] 3=Moderate Assistance 7=Complete IndependenceIRFPAI Quality Coding Scale 6 Independent with activity with or without an assistive device 5 Patient requires set up or clean up by helper. Patient completes activity by themselves 4 Supervision or touching assist (CGA). Spivey provide cues , steadying assist 3 The helper provides less than half the effort to complete the activity 2 The helper provides more than half the effort to complete the activity 1 Dependent. The helper does all the effort to complete an activity 7 Patient refused to complete or attempt activity 9 The patient did not perform the activity before the current illness or injury 88 Not attempted due to Medical conditions or safety concerns Toileting Hygiene (QC): 2 (Pt. incontinent of stool in brief. Requires max cues in shower and assist to thoroughly cleanse self.) Bathing (FIM): 4 (Pt. required min assist to wash rear juan [place]uis area, and CGA multiple times for balance and safety.) Upper Body (FIM): 5 (set up) Upper Body Dressing (QC): 5 Lower Body Dressing (FIM): 3 (Pt. required mod assist overall to doff/don brief and pants, and left sock.) Lower Body Dressing (QC): 3 On/Off Footwear (QC): 3 Toileting (FIM): 2 Transfers (B, C, W/C) (FIM): 4 (Pt. required CGA multiple times during shower task.) Shower Transfer(FIM): 4 (Pt. required min assist and constant cues to transfer into shower.) Other Treatment Pt. somewhat confused today. Has difficulty with following cues. Was incontinent of bowel in brief but had difficulty understanding how to cleanse self. Would swipe with a cloth, and then took a towel. Noted he got fecal matter all over towel, and then started to wash back with it. Pt. stated that he was done, but OT noted only his feet and legs were wet. Had not attempted to wash his torso, arms, or head. Pt. had more difficulty this date as well donning LE clothing. Had difficulty with this. Unable to get his feet into left side, or get left foot up to him to don sock. Pt. more impulsive with transfers as well. Attempted to sit mid air in shower, and had to be re- directed to shower seat. Have informed logging worker who will inform family of this, as pt. requires constant supervision. Education OT Patient Education: Progress toward Goal/Update tx plan, Purpose of tx/ functional activities, Reviewed precautions, Transfer techniques Teaching Recipient: Patient Teaching Methods: Demonstration, Discussion Response to Teaching: Verbalize Understanding, Return Demonstration OT Short Term Goals Short Term Goals Time Frame: May 27, 2016 Eating(FIM): 5 Grooming(FIM): 5 Bathing(FIM): 5 Upper Body Dressing(FIM): 5 Lower Body Dressing(FIM): 4 Toileting(FIM): 4 Transfers (B,C,W/C) (FIM): 4 (CGA) Toilet/Commode Transfer(FIM): 5 Shower Transfer(FIM): 5 Additional Short Term Goals: 1-Demonstrate ADL Tasks, 2-Verbalize Understanding , 3-ImproveStrength/Boogie 1=Demonstrate adherence to instructed precautions during ADL tasks. 2=Patient will verbalize/demonstrate understanding of assistive devices/ modifications for ADL. 3=Patient will improve strength/tolerance for activity to enable patient to perform ADL's. OT Brush Worker Goals Brush Worker Goals Time Frame: Jun 10, 2016 Eating (FIM): 6 Eating (QC): 6 Oral Hygiene (QC): 5 Grooming(FIM): 5 Bathing(FIM): 5 Shower/Bathe Self (QC): 5 Upper Body Dressing(FIM): 5 Upper Body Dressing (QC): 5 Lower Body Dressing(FIM): 5 Lower Body Dressing (QC): 5 On/Off Footwear (QC): 5 Toileting(FIM): 6 Toileting Hygiene (QC): 6 Transfers (B,C,W/C) (FIM): 5 Toilet/Commode Transfer(FIM): 5 Toilet/Commode Transfer (QC): 5 Shower Transfer(FIM): 4 Comprehension(FIM): 4 Expression (FIM): 4 Social Interaction(FIM): 5 Problem Solving(FIM): 4 Memory(FIM): 4 Additional Goals: 1-Demonstrate ADL Tasks, 2-Verbalize Understanding, 3- ImproveStrength/Boogie 1=Demonstrate adherence to instructed precautions during ADL tasks. 2=Patient will verbalize/demonstrate understanding of assistive devices/ modifications for ADL. 3=Patient will improve strength/tolerance for activity to enable patient to perform ADL's. OT Education/Plan Problem List/Assessment Assessment: Decreased Activ Tolerance, Decreased UE Strength, Dependent Transfers, Impaired Bed Mobility, Impaired Funct Balance, Impaired I ADL's Discharge Recommendations Plan/Recommendations: Continue POC Therapy D/C Recommendations: 24 hr Supervision, Home w/ Family Support, Occupational Therapy Home Care Treatment Plan/Plan of Care Treatment,Training & Education: Yes Patient would benefit from OT for education, treatment and training to promote independence in ADL's, mobility, safety and/or upper extremity function for ADL' s. Plan of Care: ADL Retraining, Caregiver Training, Functional Mobility, UE Funct Exercise/Act Treatment Duration: Jun 10, 2016 Visits Per Week: 10-12 Minutes/Day (M-F): 60-90 Minutes/Day (Sat/Lam): 15-30 Agreement: Yes Rehab Potential: Fair Time/GCodes Start Time: 10:20 Stop Time: 11:05 Total Time Billed (hr/min): 45 Billed Treatment Time 1, ADL x 45minutes SAQIB ADAM OT May 31, 2016 16:38
[2016-05-31 17:30] VITALS: BP 151/110
[2016-05-31] MEDS: TOLTERODINE LA 4 MG (DETROL) CAP PO SCH (20:17)
[2016-05-31] MEDS: SIMvastatin 40 MG (ZOCOR) TAB PO SCH (20:17)
--- NOTE | 2016-05-31 20:28 | PM & R (SOAP) Progress Note ---
Subjective Subjective/Events-last exam Patient was seen in his room this evening Patient min assist for transfers Objective Exam Last Set of Vital Signs Vital Signs Date Time Temp Pulse Resp B/P Pulse Ox O2 Delivery O2 Flow Rate FiO2 05/31/16 17:30 99.9 86 20 151/110 96 Room Air Capillary Refill : I&O Intake and Output 05/31/16 00:00 Intake Total 1595 ml Balance 1595 ml Intake Oral 1595 ml # Voids 9 # Bowel Movements 3 General: Alert, Cooperative, No Acute Distress HEENT: Atraumatic, PERRLA, EOMI, Mucous Memb Moist/[place], Other ([place]) Neck: Supple, No JVD Lungs: Clear to Auscultation Heart: Regular Rate Abdomen: Normal Bowel Sounds, Soft, No Tenderness Extremities: No Edema Neuro: Other (left HP with hip flex 3+/5 Knee flex/ext4/5 and Ankle dorsiflexion 4-/5 left shoulder 3+/5 distal 4/5 rt side Functional strength) Assessment/Plan Assessment RT Cva with LHP and expressive aphasia HTN controlled HX of GI bleed due to diverticuli with plavix on hold 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 Discharge set tentatively for tomorrow 10/29/16 Will f/u with re details BRADY TAN MD May 31, 2016 20:28
[2016-06-01 05:20] VITALS: BP 159/82
[2016-06-01] MEDS: PANTOPRAZOLE 40 MG (PROTONIX) TAB PO SCH (06:21)
[2016-06-01] MEDS: SUCRALFATE 1 GM (CARAFATE) TAB PO SCH ×2 (06:21→11:50)
--- NOTE | 2016-06-01 08:23 | Therapy Team Discharge Summary ---
Therapy Discharge Summary Discharge Recommendations Date of Discharge 06-01-16 Therapy D/C Recommendations: 24 hr Supervision, Home w/ Family Support, Occupational Therapy Home Care Occupational Therapy Pt. has been seen by occupational therapy to increase overall strength and mobility. Pt. has made progress, but still requires assist at times due to safety concerns. Pt. requires cues to bathe and dress/sequence the steps. Pt. does not always understand at first what therapist wants him to do, and requires multiple cues. Pt. requires constant supervision. Requires min/mod assist at times with LE dressing/toileting, due to poor sequencing. Tolerated treatment well. All needs met. Pt. discharging home with family. Do recommend home health OT to continue with safety and sequence training within the home. No equipment needed at this time. PT Free Lance Model Goals Free Lance Model Goals PT Free Lance Model Goals Time Frame: Jun 10, 2016 Transfers (B,C,W/C) (FIM): 5 (met) Roll Left to Right (QC): 6 (met) Sit to Lying (QC): 6 (met) Lying-Sitting on Side/Bed(QC): 6 (met) Sit to Stand (QC): 4 (metmet) Chair/Ptw-oh-Tkigd Xfer(QC): 4 (met) Car Transfer (QC): 4 Gait (FIM): 5 (met) Distance: 200' Walk 10 feet (QC): 4 (met) Walk 10ft-Uneven Surface(QC): 4 (met) Walk 50ft with 2 Turns (QC): 4 (met) Walk 150 ft (QC): 4 (met) Gait Level of Assist: 5 (et) Gait Assistive Device: FWW Stairs (FIM): 2 (met) # of Steps: 4 (met) 1 Step (curb) (QC): 4 (met) 4 Steps (QC): 4 (met) 12 Steps (QC): 88 Stairs Level Of Assist: 4 (CGA) Picking up an Object (QC): 4 OT Fci Goals Fci Goals Time Frame: Jun 10, 2016 Eating (FIM): 6 (not met- set up) Eating (QC): 6 (not met) Oral Hygiene (QC): 5 (7- Declined each day) Grooming(FIM): 5 (not met- declined each day) Bathing(FIM): 5 (not met- required min/mod assist due to safety) Shower/Bathe Self (QC): 5 (3- not met) Upper Body Dressing(FIM): 5 (met) Upper Body Dressing (QC): 5 (met) Lower Body Dressing(FIM): 5 (not met- required min/mod assist) Lower Body Dressing (QC): 5 (not met) On/Off Footwear (QC): 5 (not met- mod assist) Toileting(FIM): 6 (not met- mod/max assist due to bowel incontinence at times.) Toileting Hygiene (QC): 6 (not met-3) Transfers (B,C,W/C) (FIM): 5 (not met- CGA at times due to safety concerns) Toilet/Commode Transfer(FIM): 5 (met) Toilet/Commode Transfer (QC): 5 (met) Shower Transfer(FIM): 4 (met) Comprehension(FIM): 4 Expression (FIM): 4 Social Interaction(FIM): 5 Problem Solving(FIM): 4 Memory(FIM): 4 Additional Goals: 1-Demonstrate ADL Tasks, 2-Verbalize Understanding, 3- ImproveStrength/Boogie 1=Demonstrate adherence to instructed precautions during ADL tasks. 2=Patient will verbalize/demonstrate understanding of assistive devices/ modifications for ADL. 3=Patient will improve strength/tolerance for activity to enable patient to perform ADL's. Speech Fci Goals Free Lance Model Goals 1. The patient will demonstrated improved expressive communication for increased function and safety with ADL's in the least restrictive setting. Time Frame: Six Weeks Comprehension: 4 Expression: 4 Social Interaction: 5 Problem Solvin Memory: 4 SAQIB ADAM OT Jun 01, 2016 08:23
[2016-06-01] MEDS: FAMOTIDINE 20 MG (PEPCID) TABLET PO SCH (08:29)
[2016-06-01] MEDS: amLODIPine 5 MG (NORVASC) TAB PO SCH (08:29)
[2016-06-01] MEDS: HYDROCHLOROTHIAZIDE 25 MG (HCTZ) TAB PO SCH (08:29)
[2016-06-01] MEDS: VALSARTAN 80 MG (DIOVAN) TAB PO SCH (08:30)
[2016-06-01] MEDS: ASPIRIN E.C. 325 MG (ECOTRIN) TABLET PO SCH (08:30)
--- NOTE | 2016-06-01 09:13 | Progress Note-Urology ---
Progress Note-Urology Progress Notes/Assess & Plan Progress/Assessment & Plan Detrol LA started to help nocturia and enuresis, tolerated well, happy, keep on it when discharged Final Diagnosis nocturia and enuresis MADAI ROJAS MD Jun 01, 2016 09:13
[2016-06-01] MEDS ORDERED: TOLTA4 PO (09:45)
[2016-06-01] MEDS ORDERED: AMLO5TAB2 PO (09:45)
--- NOTE | 2016-06-01 09:51 | PM & R (SOAP) Progress Note ---
Subjective Subjective/Events-last exam Patient was seen in his room this AM Patient has progressed well Patient states that his PCP is DR Sandeep Us in [facility].Discharge meds completed Discussed case with DR Alvaro [facility] re providing a RX for Detrol LA so ordered. Objective Exam Last Set of Vital Signs Vital Signs Date Time Temp Pulse Resp B/P Pulse Ox O2 Delivery O2 Flow Rate FiO2 06/01/16 05:20 99.1 71 18 159/82 96 Room Air Capillary Refill : I&O Intake and Output 06/01/16 00:00 Intake Total 1750 ml Balance 1750 ml Intake Oral 1750 ml # Voids 4 # Urine Diapers 3 # Bowel Movements 1 General: Alert, Cooperative, No Acute Distress HEENT: Atraumatic, PERRLA, EOMI, Mucous Memb Moist/[place], Other ([place]) Neck: Supple, No JVD Lungs: Clear to Auscultation Heart: Regular Rate Abdomen: Normal Bowel Sounds, Soft, No Tenderness Extremities: No Edema Neuro: Other (left HP with hip flex 3+/5 Knee flex/ext4/5 and Ankle dorsiflexion 4-/5 left shoulder 3+/5 distal 4/5 rt side Functional strength) Assessment/Plan Assessment RT Cva with LHP and expressive aphasia HTN controlled HX of GI bleed due to diverticuli with plavix on hold 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
--- NOTE | 2016-06-01 11:03 | Physical Therapy Daily Note ---
PT Daily Note-Current Subjective Agrees to PT. No complaints. Pain Numeric Pain Scale: 0-No Pain Location: No Pain Reported Mental Status Patient Orientation: Person, Place, Time, Situation Transfers Functional [place] Measure 0=Not Assessed/NA 4=Minimal Assistance 1=Total Assistance 5=Supervision or Setup 2=Maximal Assistance 6=Modified [place] 3=Moderate Assistance 7=Complete IndependenceIRFPAI Quality Coding Scale 6 Independent with activity with or without an assistive device 5 Patient requires set up or clean up by helper. Patient completes activity by themselves 4 Supervision or touching assist (CGA). [place] provide cues , steadying assist 3 The helper provides less than half the effort to complete the activity 2 The helper provides more than half the effort to complete the activity 1 Dependent. The helper does all the effort to complete an activity 7 Patient refused to complete or attempt activity 9 The patient did not perform the activity before the current illness or injury 88 Not attempted due to Medical conditions or safety concerns Transfers (B, C, W/C) (FIM): 7 Scootin Rollin Roll Left to Right (QC): 6 Supine to/from Sit: 7 Sit to/from Stand: 7 Sit to Lying (QC): 7 Sit to Stand (QC): 7 Chair/Zfl-bj-Mnyho Xfer(QC): 6 Car Transfer (QC): 88 (car not available at this time. ) Pt is indep with all transfers. Able to complete without cues. No noted LOB issues. Pt stood at toilet to urinate with SBA and no noted LOB . Stood at sink with SBA with no LOB noted. Gait Training Does the Patient Walk?: Yes Gait (FIM): 5 Distance (FIM): 3=150 ft Distance: 300 ft x 3 Walk 10 feet (QC): 5 Walk 50 ft with 2 Turns(QC): 5 (Performed in the gym with FWW with SBA) Walk 150 ft (QC): 5 (SBA with gait for safety) Walking 10ft/uneven surface-QC: 5 (SBA with gait with FWW; no noted LOB) Gait Level of Assist: 5 (for safety purposes. ) Gait Assistive Device: FWW No LOB noted with gait be feel supervision is warrented due to decreased safety awareness. Wheelchair Training Does the Pt Use a Wheelchair?: No Stair Training Stair Training: Handrails/: 2 handrails Stairs (FIM): 5 (supervision for safety) #of Steps: 12 1 Step (curb) (QC): 5 4 Steps (QC): 5 12 Steps (QC): 5 Stairs: Pattern: Reciprocal Cues for safety occasionally Balance Picking up an Object (QC): 4 (close CGA. Recommend this not be done without assist) Exercises NuStep Minutes: 15 (to increase LE strength and functional act tolerance for participation in functional gait and transfers. ) Treatments Functional mobility at varied surfaces and distances, functional transfers, stairs, safety education and NU Step Assessment Current Status: Excellent Progress Pt has made functional gains. Pt does have decreased safety awareness but did not need any physcial assist this visit. Recommend supervision to ensure he is safe at this time. PT Short Term Goals Short Term Goals Time Frame: May 27, 2016 Transfers (B,C,W/C) (FIM): 4 (CGA) Gait (FIM): 4 (met) Gait Distance Comment: 150' Gait Level of Assist: 4 (CGA) Gait Assistive Device: FWW PT Landfill Gas Technician Goals Penitentiary Goals PT Penitentiary Goals Time Frame: Jun 10, 2016 Transfers (B,C,W/C) (FIM): 5 (met) Sit to Lying (QC): 6 (met) Lying-Sitting on Side/Bed(QC): 6 (met) Sit to Stand (QC): 4 (met) Rollin (met) Roll Left to Right (QC): 6 (met) Chair/Zff-xt-Wcdoh Xfer(QC): 4 (met) Car Transfer (QC): 4 Gait (FIM): 5 (met) Distance: 200' Walk 10 feet (QC): 4 (met) Walk 10ft-Uneven Surface(QC): 4 (met) Walk 50ft with 2 Turns (QC): 4 (met) Walk 150 ft (QC): 4 (met) Gait Level of Assist: 5 (et) Gait Assistive Device: FWW Stairs (FIM): 2 (met) # of Steps: 4 (met) 1 Step (curb) (QC): 4 (met) 4 Steps (QC): 4 (met) 12 Steps (QC): 88 Stairs Level Of Assist: 4 (CGA) Picking up an Object (QC): 4 Pt actually exceeded the transfer and gait goals as well as the stair goals. PT Plan Problem List Problem List: Activity Tolerance, Functional Strength Treatment/Plan Treatment Plan: Continue Plan of Care (versus DC this date; awaiting family discussion) Treatment Plan: Bed Mobility, Education, Functional Activity Boogie, Functional Strength, Group Therapy, Gait, Safety, Therapeutic Exercise, Transfers Treatment Duration: Jun 10, 2016 Visits Per Week: 10-11 Minutes/Day (M-F): 60-90 Minutes/Day (Sat/Lam): 15-30 Safety Risks/Education Patient Education: Safety Issues Teaching Recipient: Patient Teaching Methods: Discussion Response to Teaching: Reinforcement Needed Discharge Recommendations Plan Continue versus DC this date. Time/GCodes Time In: 930 Time Out: 1045 Total Billed Treatment Time: 75 Total Billed Treatment visit FA 60 EX 15 RAAD DOSS PT Jun 01, 2016 11:03
--- NOTE | 2016-06-01 13:30 | Speech Therapy Daily Note ---
Speech Daily Progress Note Subjective The patient was seated upright in recliner upon entrance. The patient greeted the clinician appropriately and agreed to participate in speech and language therapy on this date. Objective Word-Finding: The patient was provided single words and asked to provide appropriate antonyms. The patient demonstrated poor accuracy on this task (less than 25%) regardless of maximum clinician verbal prompting. Orientation: The patient was independently oriented to month. The patient required use of the in-room white board (external aid) for accurate identification of year and day of week. Assessment Assessment Current Status: Fair Progress Treatment Plan Continue Plan of Care Communication Comprehension: 3 Expression: 2 Social Cognition Social Interaction: 4 Problem Solvin Memory: 2 Speech Short Term Goals Short Term Goals Short Term Goals 1. The patient will demonstrated 80% accuracy with repetition of functional phrases. MET 2. The patient will demonstrate 80% accuracy with functional safety problem solving, independently. MET 3. The patient will demonstrate 80% accuracy with repetition of single words ( for transition into functional phrases). MET 4. The patient will demonstrate 80% accuracy with simple yes/no questions. NOT MET Time Frame-STG: Two Weeks Speech Marine Engineering Professor Goals Marine Engineering Professor Goals 1. The patient will demonstrated improved expressive communication for increased function and safety with ADL's in the least restrictive setting. Time Frame: Six Weeks Comprehension: 4 Expression: 4 Social Interaction: 5 Problem Solvin Memory: 4 Speech-Plan Treatment Plan Speech Therapy Treatment Plan: Continue Plan of Care Continued skilled speech therapy to target functional communication and cognition. Treatment Duration: Jul 01, 2016 # of days/week Four to Five Visits Per Week: Four to Five Minutes/Day (M-F): 30 Rehab Potential: Fair Safety Risks/Education Teaching Recipient: Patient Teaching Methods: Discussion Response to Teaching: Reinforcement Needed Education Topics Provided: Word-Finding Strategies Time Speech Therapy Time In: 11:30 Speech Therapy Time Out: 12:00 Total Billed Time: 30 Billed Treatment Time 1PARAMJIT ELIZABEELIZABETH ANN Jun 01, 2016 13:30
--- NOTE | 2016-06-01 13:47 | Occupational Ther Daily Note ---
OT Current Status-Daily Note Subjective No pain reported. Appearance Pt. agrees to treatment. Ambulated with CGA to therapy gym. Mental Status/Objective Patient Orientation: Unable to Assess Functional [place] Measure 0=Not Assessed/NA 4=Minimal Assistance 1=Total Assistance 5=Supervision or Setup 2=Maximal Assistance 6=Modified [place] 3=Moderate Assistance 7=Complete [place] Pt's speech is garbled. Laughs and attempts to speak, but it is not always intelligible. ADL-Treatment Functional [place] Measure 0=Not Assessed/NA 4=Minimal Assistance 1=Total Assistance 5=Supervision or Setup 2=Maximal Assistance 6=Modified [place] 3=Moderate Assistance 7=Complete IndependenceIRFPAI Quality Coding Scale 6 Independent with activity with or without an assistive device 5 Patient requires set up or clean up by helper. Patient completes activity by themselves 4 Supervision or touching assist (CGA). [place] provide cues , steadying assist 3 The helper provides less than half the effort to complete the activity 2 The helper provides more than half the effort to complete the activity 1 Dependent. The helper does all the effort to complete an activity 7 Patient refused to complete or attempt activity 9 The patient did not perform the activity before the current illness or injury 88 Not attempted due to Medical conditions or safety concerns Other Treatment Pt. ambulated to therapy gym. Completed series of fine motor exercises/ coordination tasks with therapy beads, and lacing activities. Completed these tasks to work on coordination for ADL tasks. Pt. had difficulty with this. Would often drop the beads and had difficulty pinching them. Pt. laughing and trying to talk but had difficulty managing intelligible speech. Ambulated back to room. All needs met. Education OT Patient Education: Modified ADL techniques, Progress toward Goal/Update tx plan, Purpose of tx/functional activities, Reviewed precautions, Rehab process, Transfer techniques Teaching Recipient: Patient Teaching Methods: Demonstration, Discussion Response to Teaching: Verbalize Understanding OT Short Term Goals Short Term Goals Time Frame: May 27, 2016 Eating(FIM): 5 Grooming(FIM): 5 Bathing(FIM): 5 Upper Body Dressing(FIM): 5 Lower Body Dressing(FIM): 4 Toileting(FIM): 4 Transfers (B,C,W/C) (FIM): 4 (CGA) Toilet/Commode Transfer(FIM): 5 Shower Transfer(FIM): 5 Additional Short Term Goals: 1-Demonstrate ADL Tasks, 2-Verbalize Understanding , 3-ImproveStrength/Boogie 1=Demonstrate adherence to instructed precautions during ADL tasks. 2=Patient will verbalize/demonstrate understanding of assistive devices/ modifications for ADL. 3=Patient will improve strength/tolerance for activity to enable patient to perform ADL's. OT Care Home Goals Desk Maker Goals Time Frame: Jun 10, 2016 Eating (FIM): 6 (not met- set up) Eating (QC): 6 (not met) Oral Hygiene (QC): 5 (7- Declined each day) Grooming(FIM): 5 (not met- declined each day) Bathing(FIM): 5 (not met- required min/mod assist due to safety) Shower/Bathe Self (QC): 5 (3- not met) Upper Body Dressing(FIM): 5 (met) Upper Body Dressing (QC): 5 (met) Lower Body Dressing(FIM): 5 (not met- required min/mod assist) Lower Body Dressing (QC): 5 (not met) On/Off Footwear (QC): 5 (not met- mod assist) Toileting(FIM): 6 (not met- mod/max assist due to bowel incontinence at times.) Toileting Hygiene (QC): 6 (not met-3) Transfers (B,C,W/C) (FIM): 5 (not met- CGA at times due to safety concerns) Toilet/Commode Transfer(FIM): 5 (met) Toilet/Commode Transfer (QC): 5 (met) Shower Transfer(FIM): 4 (met) Comprehension(FIM): 4 Expression (FIM): 4 Social Interaction(FIM): 5 Problem Solving(FIM): 4 Memory(FIM): 4 Additional Goals: 1-Demonstrate ADL Tasks, 2-Verbalize Understanding, 3- ImproveStrength/Boogie 1=Demonstrate adherence to instructed precautions during ADL tasks. 2=Patient will verbalize/demonstrate understanding of assistive devices/ modifications for ADL. 3=Patient will improve strength/tolerance for activity to enable patient to perform ADL's. OT Education/Plan Problem List/Assessment Assessment: Decreased Activ Tolerance, Impaired Cognition, Impaired Coordination, Impaired Funct Balance, Impaired I ADL's, Impaired Self-Care Skills, Restricted Funct UE ROM Discharge Recommendations Plan/Recommendations: Discontinue OT Therapy D/C Recommendations: 24 hr Supervision Target Placement correction unit Treatment Plan/Plan of Care Treatment,Training & Education: Yes Patient would benefit from OT for education, treatment and training to promote independence in ADL's, mobility, safety and/or upper extremity function for ADL' s. Plan of Care: ADL Retraining, Caregiver Training, Functional Mobility, UE Funct Exercise/Act Treatment Duration: Jun 10, 2016 Visits Per Week: 10-12 Minutes/Day (M-F): 60-90 Minutes/Day (Sat/Lam): 15-30 Agreement: Yes Rehab Potential: Fair Time/GCodes Start Time: 13:00 Stop Time: 13:30 Total Time Billed (hr/min): 30 Billed Treatment Time 1, FA x 2 SAQIB ADAM OT Jun 01, 2016 13:46
--- NOTE | 2016-06-01 13:51 | Occupational Ther Daily Note ---
OT Current Status-Daily Note Subjective Pt alert, finishing up with PT. Pt sitting in recliner. Pt agreed to therapy. Mental Status/Objective Patient Orientation: Person, Place, Time, Situation Functional [place] Measure 0=Not Assessed/NA 4=Minimal Assistance 1=Total Assistance 5=Supervision or Setup 2=Maximal Assistance 6=Modified [place] 3=Moderate Assistance 7=Complete [place] ADL-Treatment Functional [place] Measure 0=Not Assessed/NA 4=Minimal Assistance 1=Total Assistance 5=Supervision or Setup 2=Maximal Assistance 6=Modified [place] 3=Moderate Assistance 7=Complete IndependenceIRFPAI Quality Coding Scale 6 Independent with activity with or without an assistive device 5 Patient requires set up or clean up by helper. Patient completes activity by themselves 4 Supervision or touching assist (CGA). [place] provide cues , steadying assist 3 The helper provides less than half the effort to complete the activity 2 The helper provides more than half the effort to complete the activity 1 Dependent. The helper does all the effort to complete an activity 7 Patient refused to complete or attempt activity 9 The patient did not perform the activity before the current illness or injury 88 Not attempted due to Medical conditions or safety concerns Toileting Hygiene (QC): 4 (SBA using FWW and grabbar for toileting. Safety concerns with ambulation and standing.) Bathing (FIM): 5 (SBA using FWW and grabbar for toileting. Safety concerns with ambulation and standing.) Upper Body (FIM): 5 (After set up, pt is able to complete own dressing.) Upper Body Dressing (QC): 5 (After set up, pt is able to complete own dressing. ) Lower Body Dressing (FIM): 5 (After set up, pt is able to complete own dressing. Safety concerns when standing to hike pants over hips, SBA.) Lower Body Dressing (QC): 4 (After set up, pt is able to complete own dressing. Safety concerns when standing to hike pants over hips, SBA.) On/Off Footwear (QC): 5 (After set up, pt is able to complete own dressing. ) Toileting (FIM): 5 (Per PT report, pt is SBA standing at toilet to void. Pt able to manipulate clothing.) Transfers (B, C, W/C) (FIM): 4 (Per safety concerns, pt is CGA for transfers using FWW.) Toilet/Commode Transfer (FIM): 5 (Using grabbar and FWW pt is able to complete with SBA, per PT report.) Toilet Transfer (QC): 4 (SBA for transfer.) Shower Transfer(FIM): 5 (Using shower bench and grabbar pt is able to complete with SBA.) Shower/Bathe Self (QC): 4 (SBA for bathing self using grabbar and shower bench. ) OT Short Term Goals Short Term Goals Time Frame: May 27, 2016 Eating(FIM): 5 Grooming(FIM): 5 Bathing(FIM): 5 Upper Body Dressing(FIM): 5 Lower Body Dressing(FIM): 4 Toileting(FIM): 4 Transfers (B,C,W/C) (FIM): 4 (CGA) Toilet/Commode Transfer(FIM): 5 Shower Transfer(FIM): 5 Additional Short Term Goals: 1-Demonstrate ADL Tasks, 2-Verbalize Understanding , 3-ImproveStrength/Boogie 1=Demonstrate adherence to instructed precautions during ADL tasks. 2=Patient will verbalize/demonstrate understanding of assistive devices/ modifications for ADL. 3=Patient will improve strength/tolerance for activity to enable patient to perform ADL's. OT Quality Control Associate Goals Retirement Goals Time Frame: Jun 10, 2016 Eating (FIM): 6 (not met- set up) Eating (QC): 6 (not met) Oral Hygiene (QC): 5 (7- Declined each day) Grooming(FIM): 5 (not met- declined each day) Bathing(FIM): 5 (not met- required min/mod assist due to safety) Shower/Bathe Self (QC): 5 (3- not met) Upper Body Dressing(FIM): 5 (met) Upper Body Dressing (QC): 5 (met) Lower Body Dressing(FIM): 5 (not met- required min/mod assist) Lower Body Dressing (QC): 5 (not met) On/Off Footwear (QC): 5 (not met- mod assist) Toileting(FIM): 6 (not met- mod/max assist due to bowel incontinence at times.) Toileting Hygiene (QC): 6 (not met-3) Transfers (B,C,W/C) (FIM): 5 (not met- CGA at times due to safety concerns) Toilet/Commode Transfer(FIM): 5 (met) Toilet/Commode Transfer (QC): 5 (met) Shower Transfer(FIM): 4 (met) Comprehension(FIM): 4 Expression (FIM): 4 Social Interaction(FIM): 5 Problem Solving(FIM): 4 Memory(FIM): 4 Additional Goals: 1-Demonstrate ADL Tasks, 2-Verbalize Understanding, 3- ImproveStrength/Boogie 1=Demonstrate adherence to instructed precautions during ADL tasks. 2=Patient will verbalize/demonstrate understanding of assistive devices/ modifications for ADL. 3=Patient will improve strength/tolerance for activity to enable patient to perform ADL's. OT Education/Plan Discharge Recommendations Plan/Recommendations: Continue POC Treatment Plan/Plan of Care Patient would benefit from OT for education, treatment and training to promote independence in ADL's, mobility, safety and/or upper extremity function for ADL' s. Plan of Care: ADL Retraining, Caregiver Training, Functional Mobility, UE Funct Exercise/Act Treatment Duration: Jun 10, 2016 Visits Per Week: 10-12 Minutes/Day (M-F): 60-90 Minutes/Day (Sat/Lam): 15-30 Agreement: Yes Rehab Potential: Fair Time/GCodes Start Time: 10:45 Stop Time: 11:30 Total Time Billed (hr/min): 45 Billed Treatment Time 1 visit-ADL 3 (45 min) RAAD GARCIA Jun 01, 2016 13:51
--- NOTE | 2016-06-01 15:12 | Therapy Team Discharge Summary ---
Therapy Discharge Summary Discharge Recommendations Date of Discharge Therapy D/C Recommendations: 24 hr Supervision Speech-Language Pathology The patient was admitted to [facility] with a diagnosis of CVA. Upon admission, the patient demonstrated moderate to severe cognitive impairments, as well as, moderate expressive aphasia. Skilled speech therapy focused on safety problem solving, functional memory strategies, and structured word-finding tasks. The patient did not meet memory, expressive language, or problem solving goals initially set by the clinician. At this time, the clinician recommends continued skilled therapy post discharge (home health or outpatient). PT Usp Goals Usp Goals PT Usp Goals Time Frame: Jun 10, 2016 Transfers (B,C,W/C) (FIM): 5 (met) Roll Left to Right (QC): 6 (met) Sit to Lying (QC): 6 (met) Lying-Sitting on Side/Bed(QC): 6 (met) Sit to Stand (QC): 4 (met) Chair/Fjh-wi-Hzuvh Xfer(QC): 4 (met) Car Transfer (QC): 4 Gait (FIM): 5 (met) Distance: 200' Walk 10 feet (QC): 4 (met) Walk 10ft-Uneven Surface(QC): 4 (met) Walk 50ft with 2 Turns (QC): 4 (met) Walk 150 ft (QC): 4 (met) Gait Level of Assist: 5 (et) Gait Assistive Device: FWW Stairs (FIM): 2 (met) # of Steps: 4 (met) 1 Step (curb) (QC): 4 (met) 4 Steps (QC): 4 (met) 12 Steps (QC): 88 Stairs Level Of Assist: 4 (CGA) Picking up an Object (QC): 4 OT Cognos Consultant Goals Usp Goals Time Frame: Jun 10, 2016 Eating (FIM): 6 (not met- set up) Eating (QC): 6 (not met) Oral Hygiene (QC): 5 (7- Declined each day) Grooming(FIM): 5 (not met- declined each day) Bathing(FIM): 5 (not met- required min/mod assist due to safety) Shower/Bathe Self (QC): 5 (3- not met) Upper Body Dressing(FIM): 5 (met) Upper Body Dressing (QC): 5 (met) Lower Body Dressing(FIM): 5 (not met- required min/mod assist) Lower Body Dressing (QC): 5 (not met) On/Off Footwear (QC): 5 (not met- mod assist) Toileting(FIM): 6 (not met- mod/max assist due to bowel incontinence at times.) Toileting Hygiene (QC): 6 (not met-3) Transfers (B,C,W/C) (FIM): 5 (not met- CGA at times due to safety concerns) Toilet/Commode Transfer(FIM): 5 (met) Toilet/Commode Transfer (QC): 5 (met) Shower Transfer(FIM): 4 (met) Comprehension(FIM): 4 Expression (FIM): 4 Social Interaction(FIM): 5 Problem Solving(FIM): 4 Memory(FIM): 4 Additional Goals: 1-Demonstrate ADL Tasks, 2-Verbalize Understanding, 3- ImproveStrength/Boogie 1=Demonstrate adherence to instructed precautions during ADL tasks. 2=Patient will verbalize/demonstrate understanding of assistive devices/ modifications for ADL. 3=Patient will improve strength/tolerance for activity to enable patient to perform ADL's. Speech Usp Goals Cognos Consultant Goals 1. The patient will demonstrated improved expressive communication for increased function and safety with ADL's in the least restrictive setting. Time Frame: Six Weeks Comprehension: 4 (NOT MET) Expression: 4 (NOT MET) Social Interaction: 5 (MET) Problem Solvin (NOT MET) Memory: 4 (NOT MET) SUE BRIDGES Jun 01, 2016 15:12
[2016-06-01 15:31] VITALS: BP 159/82
--- NOTE | 2016-06-16 10:43 | DISCHARGE SUMMARY ---
DATE OF ADMISSION: 05/19/2016 DATE OF DISCHARGE: 06/01/2016 HISTORY OF PRESENT ILLNESS: The patient is an 85-year-old male with a recent right-sided stroke with left hemiparesis who had been at home and not received any inpatient rehabilitation for this condition. He appeared to have confusion and increased left-sided weakness and discoordination in the distribution of the previous stroke with a decline in functional independence. The patient went to the ED and admitted to [facility], [place], operated by [facility] service Dr. Carvajal. The patient lives with his family in [place], [place]. PCP is in [place], [place]. Due to the patient having a history of diverticulosis with GI bleed, his Plavix has been on hold for several weeks. He is on aspirin for stroke prophylaxis. He is also on Carafate, Pepcid and Protonix for GI prophylaxis. He is on ferrous sulfate for iron replacement. Therapies were begun on the medical floor and the patient was found to be appropriate for Inpatient Rehabilitation Unit. A CT scan of the brain showed no significant change or new area of stroke. Clinically, however, he was felt to have sustained an extension of his prior stroke. PAST MEDICAL HISTORY: 1. 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 He is right-handed. 2. Depression. 3. GI bleed. 4. Diverticulosis. 5. Hypertension. 6. He has had CABG x [address] [facility] 7[address] CT of the head revealed several old lacunar infarcts. 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 8. Chest x-ray revealed postop changes from the median sternotomy and calcified granuloma in the right mid lung. MEDICAL COURSE: The patient was followed by Dr. Purdy and Dr. Carvajal while on rehab unit. The patient had some transient nausea, medication was provided for that. He was afebrile during his stay. His blood pressure on 06/01 was 159/82, respirations 18, pulse 71, O2 sat 96% on room air. CBC on 05/20 showed WBC 6.8, H&H 13.2/38, platelet count 157,000. Chemistry on 05/20 showed normal electrolytes, BUN and creatinine, total protein low at 5.7, albumin normal at 3.7. UA on 05/26 was negative. The patient was seen by Dr. John urology. Detrol he was started to help with nocturia and enuresis and the patient tolerated this well with improvement. REHABILITATION COURSE: The patient progressed well with his therapies. He had increased strength and endurance. He had a supportive family that will assist him at home. Speech therapy noted upon admission, the patient demonstrated moderate to severe cognitive impairments, as well as moderate expressive aphasia. The patient did not meet, memory, expressive language or problem solving goals initially set by the clinician although he did have some improvement. Speech therapy recommends follow-up home health or outpatient speech therapy. He was scoring 3's on the FIM score upon discharge for memory problem solving, expression and comprehension. OT notes upon admission, he was min assist for bathing, upper body dressing, shower transfers. Mod assist for lower body dressing. Max assist for toileting hygiene. Upon discharge he requires min to mod assist at times for lower body dressing and toileting due to poor sequencing but is set up for eating, oral hygiene. Min assist for grooming, set up for upper body dressing. Min assist for lower body dressing. He is standby assist for toilet commode transfers. Mod assist for toileting hygiene. DISCHARGE INSTRUCTIONS: The patient will have follow-up with his PCP in [place], [place]. Continue current diet. The family requested transfer. The patient family at the last minute unwilling to take patient home with them. They requested SNU placement and executive secretary social welfare has arranged for [place] to [place] [facility] on day of discharge. The patient will have follow-up PCP in [place], [place] or a local [place] [facility] [place] physician with ongoing therapies at local custodial facility. DISCHARGE MEDICATIONS: 1. Amlodipine 5 mg p.o. daily. 2. Detrol LA 4 mg p.o. at bedtime. 3. ASA 325 mg p.o. daily. 4. Citalopram 20 mg p.o. daily. 5. Pepcid 20 mg p.o. b.i.d. 6. Ferrous sulfate 325 mg p.o. daily. 7. Hydrochlorothiazide 25 mg p.o. daily. 8. Protonix 20 mg p.o. daily. 9. Simvastatin 40 mg p.o. at bedtime. 10. Valsartan, 160 mg p.o. daily. DISCHARGE DIAGNOSES: 1. Rehabilitation ambulatory dysfunction, secondary to right-sided stroke with left hemiparesis, improving. 2. Stand right-sided stroke with dysarthria, improving. 3. Cognitive impairment due to stroke, improved now back to baseline. 4. Standing balance, difficulty. 5. Expressive dysphasia. 6. Hypertension, controlled with medication. 7. Coronary artery disease, stable on medications. 8. Hyperlipidemia, on statin. 9. Iron deficiency anemia, improving. 10. Nocturnal enuresis, improved with medications. 11. Status post CABG CONDITION AT DISCHARGE: Improved and stable. PROGNOSIS: Rehab prognosis appears good for some continued improvement with ongoing therapies, hopefully he will be able to return home with family or to a more formal assisted living setting in the near future. Job ID: [id number] Dictated Date: 06/15/2016 14:08:54 Car Rider Date: 06/16/2016 10:22:46/mathieu
== END 2016-06-01 15:31 | DRG 57 ==
PROVIDERS: ADMIT Physical Medicine & Rehabilitation; ATTEND Physical Medicine & Rehabilitation
DX: I69.354 Hemiplegia and hemiparesis following cerebral infarction affecting left non-dominant side (principal); I69.322 Dysarthria following cerebral infarction; I69.398 Other sequelae of cerebral infarction; R26.89 Other abnormalities of gait and mobility; I69.320 Aphasia following cerebral infarction; E11.9 Type 2 diabetes mellitus without complications; I10 Essential (primary) hypertension; N39.44 Nocturnal enuresis; Z66 Do not resuscitate; I25.10 Atherosclerotic heart disease of native coronary artery without angina pectoris; E78.5 Hyperlipidemia, unspecified; D50.9 Iron deficiency anemia, unspecified; Z95.1 Presence of aortocoronary bypass graft
CPT/HCPCS: 36415; 80053; 81000; 85025

== ENCOUNTER 2016-07-23 18:11 | Emergency (ER) | payer MEDICARE, OTHER ==
[~2016-07-23] VITALS: Ht 170.2 cm; Wt 95.3 kg
[~2016-07-23 18:11] MED LIST changes: +AMLO5TAB2 PO; +TOLTA4 PO
[2016-07-23] MEDS ORDERED: fentaNYL INJECTION 100 MCG/2 ML AMP IVP ONE (18:30)
[2016-07-23 18:36] LABS: BASOPHILS % (AUTO) 0 % (0-10); EOSINOPHILS # (AUTO) 0.2 10^3/uL (0.0-0.3); EOSINOPHILS % (AUTO) 3 % (0-10); LYMPHOCYTES # (AUTO) 1.9 X 10^3 (1.0-4.0); LYMPHOCYTES % (AUTO) 27 % (12-44); MEAN CORPUSCULAR HEMOGLOBIN 29 PG (25-34); MEAN CORPUSCULAR HGB CONC 35 G/DL (32-36); MEAN CORPUSCULAR VOLUME 84 FL (80-99); MEAN PLATELET VOLUME 10.1 FL (7.4-10.4); MONOCYTES # (AUTO) 0.8 X 10^3 (0.0-1.0); MONOCYTES % (AUTO) 12 % (0-12); NEUTROPHILS % (AUTO) 58 % (42-75); PLATELET COUNT 193 10^3/uL (130-400); RED BLOOD COUNT 4.47 10^6/uL (4.35-5.85); RED CELL DISTRIBUTION WIDTH 13.4 % (10.0-14.5)
[2016-07-23 18:47] LABS: PROTHROMBIN TIME PATIENT 12.9 SEC (12.2-14.7)
[2016-07-23 18:57] LABS: ALANINE AMINOTRANSFERASE 17 U/L (0-55); ALBUMIN 3.9 G/DL (3.2-4.5); ANION GAP 11 MMOL/L (5-14); ASPARTATE AMINO TRANSFERASE 20 U/L (5-34); BILIRUBIN,TOTAL 0.5 MG/DL (0.1-1.0); BLOOD UREA NITROGEN 23 MG/DL (7-18); BUN/CREATININE RATIO 26; CALCIUM 9.1 MG/DL (8.5-10.1); CARBON DIOXIDE 28 MMOL/L (21-32); CHLORIDE 102 MMOL/L (98-107); CREATININE SERUM 0.88 MG/DL (0.60-1.30); GFR ESTIMATED > 60; GLUCOSE 97 MG/DL (70-105); MAGNESIUM 2.1 MG/DL (1.8-2.4); POTASSIUM 3.6 MMOL/L (3.6-5.0); SODIUM 141 MMOL/L (135-145); TOTAL PROTEIN 6.4 G/DL (6.4-8.2)
--- NOTE | 2016-07-23 18:59 | Diagnostic Imaging Report ---
INDICATION: Injured in fall. COMPARISON: 05/17/16. EXAMINATION: Single view of the chest was obtained. FINDINGS: Senescent chest with emphysematous changes and chronic parenchymal change. There has been a previous median sternotomy. Background chronic parenchymal changes are present. Soft tissues and bone thorax are unchanged. There is mild left shoulder arthropathy. IMPRESSION: Previous median sternotomy with senescent changes of the chest but no evidence of acute cardiopulmonary disease. Dictated by: Dictated on workstation # [id number]
--- NOTE | 2016-07-23 19:01 | Diagnostic Imaging Report ---
INDICATION: Fall with pain. COMPARISON: None available. TECHNIQUE: AP view of the pelvis. FINDINGS: No acute fracture of the proximal femurs. Hips are not dislocated. Evaluation of the sacrum is limited due to horizontal configuration of this patient and overlying bowel gas. No discrete pubic rami fracture. No diastases of the SI joints or symphysis pubis. Moderate osteoarthritis of both hips. IMPRESSION: 1. No definitive fracture about the pelvis. Evaluation of the sacrum is limited on this examination, as detailed above. 2. Moderate osteoarthritis of both hips. Dictated by: Dictated on workstation # [id number]
--- NOTE | 2016-07-23 19:03 | Diagnostic Imaging Report ---
INDICATION: Left hip pain after fall. COMPARISON: AP pelvis performed concurrently. TECHNIQUE: AP and frog-leg lateral views of the left hip. FINDINGS: No acute fracture of the proximal left femur. No hip dislocation. Left obturator ring is intact. Moderate osteoarthritis of the left hip. Radiation seeds are present in the prostate. IMPRESSION: 1. No acute fracture about the left hip. 2. Moderate osteoarthritis of the left hip. Dictated by: Dictated on workstation # [id number]
--- NOTE | 2016-07-23 19:38 | ED Hip Pain/Injury ---
General Chief Complaint: Hip/Pelvic Problems Stated Complaint: FALL, R HIP PAIN Source: patient, family, EMS Exam Limitations: other (speech deficits from prior stroke) History of Present Illness Time seen by provider: 18:01 Initial Comments This patient presents via EMS with complaints of left hip pain after having a fall at 11:00. Patient was attempting to turn with his walker while ambulating when he fell. He denied any head injury initially but later stated he did strike his head. There is no loss of consciousness. Family reports his cognition and neurologic status are baseline. He has history of prior CVA causing expressive aphasia. Allergies and Home Medications Allergies Coded Allergies: codeine (Verified Allergy, Unknown, 11/12/05) Home Medications Amlodipine Besylate 5 Mg Tablet, 5 MG PO DAILY, #30 Prescribed by: BRADY TAN on 06/01/16 0945 Aspirin 325 Mg Tablet.dr, 325 MG PO DAILY, (Reported) Citalopram Hydrobromide 20 Mg Tablet, 20 MG PO DAILY, (Reported) Famotidine 20 Mg Tablet, 20 MG PO BID for 30 Days Prescribed by: YONI GALAN on 05/19/16 1145 Ferrous Sulfate 325 Mg Tablet, 325 MG PO DAILY, (Reported) Hydrochlorothiazide 25 Mg Tablet, 25 MG PO DAILY, (Reported) Pantoprazole Sodium 40 Mg Tablet.dr, 40 MG PO DAILY, (Reported) Simvastatin 40 Mg Tablet, 40 MG PO HS, (Reported) Tolterodine Tartrate 4 Mg Cap, 4 MG PO HS, #30 Prescribed by: BRADY TAN on 06/01/16 0945 Valsartan 160 Mg Tablet, 160 MG PO DAILY, (Reported) Constitutional: no symptoms reported EENTM: no symptoms reported Respiratory: no symptoms reported Cardiovascular: no symptoms reported Gastrointestinal: no symptoms reported Genitourinary: no symptoms reported Musculoskeletal: see HPI Skin: no symptoms reported Psychiatric/Neurological: See HPI Past [place]-Dfqejk-[place] Hx Patient Social History Recent Hopitalizations: Yes Immunizations Up To Date Date of Pneumonia Vaccine: Nov 25, 2015 Date of Influenza Vaccine: Mar 12, 2016 Seasonal Allergies Seasonal Allergies: No Surgeries HX Surgeries: Yes Surgeries: CABG Respiratory Hx Respiratory Disorders: No Cardiovascular Hx Cardiac Disorders: Yes Cardiac Disorders: Coronary Artery Disease, Hypertension Neurological Hx Neurological Disorders: Yes (expressive aphasia) Neurological Disorders: Stroke Reproductive System Sexually Transmitted Disease: No HIV/AIDS: No Genitourinary Hx Genitourinary Disorders: Yes Genitourinary Disorders: Prostate Problems Gastrointestinal Hx Gastrointestinal Disorders: Yes Gastrointestinal Disorders: Gastroesophageal Reflux, Gastrointestinal Bleed, Diverticulosis Musculoskeletal Hx Musculoskeletal Disorders: No Musculoskeletal Disorders: Arthritis Endocrine Hx Endocrine Disorders: Yes Endocrine Disorders: Diabetes, Non-Insulin dep HEENT HX ENT Disorders: No Hearing Impairment: Hard of Hearing, Hearing Aide Right, Hearing Aide Left Cancer Hx Cancer: Yes Cancer: Prostate Psychosocial Hx Psychiatric Problems: No Integumentary HX Skin/Integumentary Disorder: No Skin/Integumentary Disorders: Recent Skin Changes Physical Exam Vital Signs Vital Sign - Last 12Hours 07/23/16 18:11 Pulse 79 Resp 18 B/P (MAP) 162/121 Pulse Ox 98 O2 Delivery Room Air Capillary Refill : General Appearance: No Apparent Distress, WD/WN HEENT: PERRL/EOMI, Normal ENT Inspection, Pharynx Normal Neck: Normal Inspection, Non Tender, Supple Cardiovascular: No Edema, No Murmur, Normal Peripheral Pulses, Irregularly Irregular Respiratory: Lungs Clear, Normal Breath Sounds, No Accessory Muscle Use, No Respiratory Distress Gastrointestinal: Normal Bowel Sounds, Non Tender, Soft Extremity: Normal Inspection, Other (tenderness of the right upper thigh especially toward the groin. No pain with external rotation. Minimal pain was flexion of the hip.) Neurologic/Psychiatric: Alert, Oriented x3, No Motor/Sensory Deficits, Normal Mood/Affect, Other (expressive a phase and mild confusion from prior stroke noted.) Skin: Normal Color, Warm/Dry Progress/Results/Core Measures Results/Orders Lab Results Laboratory Tests Test 07/23/16 18:24 07/23/16 20:25 Range/Units White Blood Count 7.0 4.3-11.0 10^3/uL Red Blood Count 4.47 4.35-5.85 10^6/uL Hemoglobin 13.0 L 13.3-17.7 G/DL Hematocrit 37 L 40-54 % Mean Corpuscular Volume 84 80-99 FL Mean Corpuscular Hemoglobin 29 25-34 PG Mean Corpuscular Hemoglobin Concent 35 32-36 G/DL Red Cell Distribution Width 13.4 10.0-14.5 % Platelet Count 193 130-400 10^3/uL Mean Platelet Volume 10.1 7.4-10.4 FL Neutrophils (%) (Auto) 58 42-75 % Lymphocytes (%) (Auto) 27 12-44 % Monocytes (%) (Auto) 12 0-12 % Eosinophils (%) (Auto) 3 0-10 % Basophils (%) (Auto) 0 0-10 % Neutrophils # (Auto) 4.0 1.8-7.8 X 10^3 Lymphocytes # (Auto) 1.9 1.0-4.0 X 10^3 Monocytes # (Auto) 0.8 0.0-1.0 X 10^3 Eosinophils # (Auto) 0.2 0.0-0.3 10^3/uL Basophils # (Auto) 0.0 0.0-0.1 10^3/uL Prothrombin Time 12.9 12.2-14.7 SEC INR Comment 1.0 0.8-1.4 Activated Partial Thromboplast Time 25 24-35 SEC Sodium Level 141 135-145 MMOL/L Potassium Level 3.6 3.6-5.0 MMOL/L Chloride Level 102 98-107 MMOL/L Carbon Dioxide Level 28 21-32 MMOL/L Anion Gap 11 5-14 MMOL/L Blood Urea Nitrogen 23 H 7-18 MG/DL Creatinine 0.88 0.60-1.30 MG/DL Estimat Glomerular Filtration Rate > 60 BUN/Creatinine Ratio 26 Glucose Level 97 70-105 MG/DL Calcium Level 9.1 8.5-10.1 MG/DL Magnesium Level 2.1 1.8-2.4 MG/DL Total Bilirubin 0.5 0.1-1.0 MG/DL Aspartate Amino Transf (AST/SGOT) 20 5-34 U/L Alanine Aminotransferase (ALT/SGPT) 17 0-55 U/L Alkaline Phosphatase 92 40-136 U/L Total Protein 6.4 6.4-8.2 G/DL Albumin 3.9 3.2-4.5 G/DL Urine Color YELLOW Urine Clarity CLEAR Urine pH 6 5-9 Urine Specific [place] 1.025 H 1.016-1.022 Urine Protein NEGATIVE NEGATIVE Urine Glucose (UA) NEGATIVE NEGATIVE Urine Ketones NEGATIVE NEGATIVE Urine Nitrite NEGATIVE NEGATIVE Urine Bilirubin NEGATIVE NEGATIVE Urine Urobilinogen NORMAL NORMAL MG/DL Urine Leukocyte Esterase 1+ H NEGATIVE Urine RBC (Auto) NEGATIVE NEGATIVE Urine RBC NONE /HPF Urine WBC 0-2 /HPF Urine Squamous Epithelial Cells 0-2 /HPF Urine Crystals NONE /LPF Urine Bacteria NONE /HPF Urine Casts NONE /LPF Urine Mucus NEGATIVE /LPF Urine Culture Indicated NO My Orders Orders - ANDRY MICHAELS MD Cbc With Automated Diff (07/23/16 18:22) Comprehensive Metabolic Panel (07/23/16 18:22) Magnesium (07/23/16 18:22) Protime With Inr (07/23/16 18:22) Partial Thromboplastin Time (07/23/16 18:22) Ua Culture If Indicated (07/23/16 18:22) Chest 1 View, Ap/Pa Only (07/23/16 18:22) Pelvis (07/23/16 18:22) Hip, Left, 2 Views (07/23/16 18:22) Fentanyl Injection (Sublimaze Injection (07/23/16 18:30) Saline Lock/Iv-Start (07/23/16 18:23) Ekg Tracing (07/23/16 18:23) Monitor-Rhythm Ecg Trace Only (07/23/16 18:23) Chest 1 View, Ap/Pa Only (07/23/16 19:23) Ct Head/Cervical Spine Wo (07/23/16 19:26) Ketorolac Injection (Toradol Injection) (07/23/16 21:15) Medications Given in ED Current Medications Medications Dose Ordered Sig/Moody Route Start Time Stop Time Status Last Admin Dose Admin Fentanyl Citrate 25 mcg ONCE ONCE IVP 07/23/16 18:30 07/23/16 18:31 DC 07/23/16 19:05 25 MCG Ketorolac Tromethamine 15 mg ONCE ONCE IVP 07/23/16 21:15 07/23/16 21:17 DC 07/23/16 21:40 15 MG Vital Signs/I&O Vital Sign - Last 12Hours 07/23/16 07/23/16 18:11 21:45 Pulse 79 70 Resp 18 18 B/P (MAP) 162/121 Pulse Ox 98 96 O2 Delivery Room Air Progress Note : Progress Note Patient was able to stand and bear weight after review of the pelvis and hip x- rays. No injuries were identified on any of the imaging studies. Workup was otherwise unremarkable. Toradol was administered for pain control and patient was dismissed with family. Incidental thyroid mass was noted which family is aware of. ECG Initial ECG Impression Date: Jul 23, 2016 Initial ECG Impression Time: 18:57 Initial ECG Rate: 71 Initial ECG Rhythm: Normal Sinus Comment Sinus rhythm with artifact. No ST elevation or depression. No abnormal intervals or axis deviation. Diagnostic Imaging Diagonstic Imaging: CT Plain Films/CT/US/NM/MRI: c-spine, head Comments CT head and C-spine viewed by me and report reviewed. Discussed with the radiologist. See report below: NAME: MAILE STEWART [facility] REC#: [id number] PT STATUS: REG ER : 1930 PHYSICIAN: ANDRY MICHAELS MD ADMIT DATE: 07/23/16/ER Signed Date of Exam: 07/23/16 CT HEAD/CERVICAL SPINE WO PROCEDURE: CT head and CT cervical spine without contrast. TECHNIQUE: Multiple contiguous axial images were obtained through the brain and cervical spine without the use of intravenous contrast. Sagittal and coronal reformations through the cervical spine were then performed. INDICATION: Head and neck pain after a fall. COMPARISON: CT head of 05/17/2016. FINDINGS: Head: No hyperdense mass or space-occupying mass. No hydrocephalus or midline shift. No evidence of territorial infarct. Basilar cisterns are patent. Age-appropriate atrophy with moderate periventricular white matter hypoattenuation. Remote lacunar infarcts in the bilateral basal ganglia and left barone radiata are unchanged. No focal scalp swelling. No skull fracture. The paranasal sinuses and mastoid air cells are clear. Cervical spine: No acute fracture or traumatic malalignment. Moderate multilevel degenerative changes, greatest at C6-C7. Multilevel hypertrophic facet changes, greater on the left.. Airway is patent. No cervical lymphadenopathy. There is a very large hypodense lesion occupying the majority of the right thyroid lobe measuring greater than 5.5 x 4.3 cm. This is not significantly changed since CT of 10/23/2013. IMPRESSION: 1. No acute intracranial process. 2. No acute fracture or traumatic malalignment of the cervical spine. 3. 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 This could be further evaluated with a thyroid ultrasound on a nonemergent basis. Dictated by: Dictated on workstation # [id number] Dict: 07/23/161955 Trans: 07/23/162014 [facility] [id number] Interpreted by: GONSALO MONTES MD Electronically signed by:GONSALO MONTES MD 07/23/162014 Diagonstic Imaging: Xray Plain Films/CT/US/NM/MRI: hip Comments Left hip x-ray viewed by me and report reviewed. See report below: NAME: MAILE STEWART [facility] REC#: [id number] PT STATUS: REG ER : 1930 PHYSICIAN: ANDRY MICHAELS MD ADMIT DATE: 07/23/16/ER Signed Date of Exam: 07/23/16 HIP, LEFT, 2 VIEWS INDICATION: Left hip pain after fall. COMPARISON: AP pelvis performed concurrently. TECHNIQUE: AP and frog-leg lateral views of the left hip. FINDINGS: No acute fracture of the proximal left femur. No hip dislocation. Left obturator ring is intact. Moderate osteoarthritis of the left hip. Radiation seeds are present in the prostate. IMPRESSION: 1. No acute fracture about the left hip. 2. Moderate osteoarthritis of the left hip. Dictated by: Dictated on workstation # [id number] Dict: 07/23/161854 Trans: 07/23/161910 [facility] [id number] Interpreted by: GONSALO MONTES MD Electronically signed by:GONSALO MONTES MD 07/23/161910 Diagonstic Imaging: Xray Plain Films/CT/US/NM/MRI: pelvis Comments Pelvis x-ray viewed by me and report reviewed. See report below: NAME: MAILE STEWART [facility] REC#: [id number] PT STATUS: REG ER : 1930 PHYSICIAN: ANDRY MICHAELS MD ADMIT DATE: 07/23/16/ER Signed Date of Exam: 07/23/16 PELVIS INDICATION: Fall with pain. COMPARISON: None available. TECHNIQUE: AP view of the pelvis. FINDINGS: No acute fracture of the proximal femurs. Hips are not dislocated. Evaluation of the sacrum is limited due to horizontal configuration of this patient and overlying bowel gas. No discrete pubic rami fracture. No diastases of the SI joints or symphysis pubis. Moderate osteoarthritis of both hips. IMPRESSION: 1. No definitive fracture about the pelvis. Evaluation of the sacrum is limited on this examination, as detailed above. 2. Moderate osteoarthritis of both hips. Dictated by: Dictated on workstation # [id number] Dict: 07/23/161853 Trans: 07/23/161910 [facility] [id number] Interpreted by: GONSALO MONTES MD Electronically signed by:GONSALO MONTES MD 07/23/161910 Diagonstic Imaging: Xray Plain Films/CT/US/NM/MRI: chest Comments Chest x-ray viewed by me. Report reviewed and discussed with radiologist. See report below: NAME: MAILE STEWART [facility] REC#: [id number] PT STATUS: REG ER : 1930 PHYSICIAN: ANDRY MICHAELS MD ADMIT DATE: 07/23/16/ER Signed Date of Exam: 07/23/16 CHEST 1 VIEW, AP/PA ONLY INDICATION: Injured in fall. COMPARISON: 05/17/16. EXAMINATION: Single view of the chest was obtained. FINDINGS: Senescent chest with emphysematous changes and chronic parenchymal change. There has been a previous median sternotomy. Background chronic parenchymal changes are present. Soft tissues and bone thorax are unchanged. There is mild left shoulder arthropathy. IMPRESSION: Previous median sternotomy with senescent changes of the chest but no evidence of acute cardiopulmonary disease. Dictated by: Dictated on workstation # [id number] Dict: 07/23/161851 Trans: 07/23/161904 [facility] [id number] Interpreted by: RAFAEL ETIENNE MD Electronically signed by:RAFAEL ETIENNE MD 07/23/161904 ADDENDUM REPORT ADDENDUM/IMPRESSION: A linear lucency along the left lateral chest is noted. This could represent a skin fold; however, the small possibility of a pneumothorax is not excluded. Hence, a departmental PA expiratory film of the chest is recommended. Findings discussed with Dr. Carreon in the [place] [facility] department. Dictated by: Dictated on workstation # [id number] Interpreted by: RAFAEL ETIENNE MD Electronically signed by:RAFAEL ETIENNE MD 07/23/161940 Diagonstic Imaging: Xray Plain Films/CT/US/NM/MRI: chest Comments Repeat chest x-ray PA standing in the department was obtained. Viewed by me and report reviewed. See report below: NAME: MAILE STEWART [facility] REC#: [id number] PT STATUS: REG ER : 1930 PHYSICIAN: ANDRY MICHAELS MD ADMIT DATE: 07/23/16/ER Signed Date of Exam: 07/23/16 CHEST 1 VIEW, AP/PA ONLY INDICATION: 85-year-old female with suspected left pneumothorax. The expiration departmental film was requested COMPARISON: 07/23/16 FINDINGS: Single study from the chest shows the cardiac contour to be within normal limits. Background chronic parenchymal changes are seen. There is a previous median sternotomy for a CABG. Some calcified granulomas are again seen. The expiration film of the left chest shows no evidence of a pneumothorax. The previously suggested pneumothorax is most likely an overlying skin fold. Scapular outline is seen. IMPRESSION: 1. Senescent chest with COPD and chronic parenchymal changes with a previous median sternotomy for a CABG. 2. Previous linear lucency overlying the left chest is felt to be a skinfold rather than a pneumothorax. Dictated by: Dictated on workstation # [id number] Dict: 07/23/161941 Trans: 07/23/162000 [facility] [id number] Interpreted by: RAFAEL ETIENNE MD Electronically signed by:RAFAEL ETIENNE MD 07/23/162000 Departure Impression Impression: Primary Impression: Fall on same level from stumbling Qualified Codes: W01.0XXA - Fall on same level from slipping, tripping and stumbling without subsequent striking against object, initial encounter Additional Impressions: Left hip pain Thyroid mass Disposition: 01 HOME, SELF-CARE Condition: Improved Departure-Patient Inst. Decision time for Depature: 21:00 Referrals: NO,LOCAL PHYSICIAN (PCP/Family) Primary Care Physician Patient Instructions: Preventing Falls in the Older Adult Add. Discharge Instructions: You may take Tylenol (acetaminophen) up to 1000 mg every 6 hours as needed for pain. Add ibuprofen up to 400 mg every 6 hours as needed for additional pain relief. Follow up with your primary care provider next week. Return to care if symptoms worsen. All discharge instructions reviewed with patient and/or family. Voiced understanding. ANDRY MICHAELS MD Jul 23, 2016 19:38
--- NOTE | 2016-07-23 19:59 | Diagnostic Imaging Report ---
INDICATION: 85-year-old female with suspected left pneumothorax. The expiration departmental film was requested COMPARISON: 07/23/16 FINDINGS: Single study from the chest shows the cardiac contour to be within normal limits. Background chronic parenchymal changes are seen. There is a previous median sternotomy for a CABG. Some calcified granulomas are again seen. The expiration film of the left chest shows no evidence of a pneumothorax. The previously suggested pneumothorax is most likely an overlying skin fold. Scapular outline is seen. IMPRESSION: 1. Senescent chest with COPD and chronic parenchymal changes with a previous median sternotomy for a CABG. 2. Previous linear lucency overlying the left chest is felt to be a skinfold rather than a pneumothorax. Dictated by: Dictated on workstation # [id number]
--- NOTE | 2016-07-23 20:06 | Diagnostic Imaging Report ---
PROCEDURE: CT head and CT cervical spine without contrast. TECHNIQUE: Multiple contiguous axial images were obtained through the brain and cervical spine without the use of intravenous contrast. Sagittal and coronal reformations through the cervical spine were then performed. INDICATION: Head and neck pain after a fall. COMPARISON: CT head of 05/17/2016. FINDINGS: Head: No hyperdense mass or space-occupying mass. No hydrocephalus or midline shift. No evidence of territorial infarct. Basilar cisterns are patent. Age-appropriate atrophy with moderate periventricular white matter hypoattenuation. Remote lacunar infarcts in the bilateral basal ganglia and left barone radiata are unchanged. No focal scalp swelling. No skull fracture. The paranasal sinuses and mastoid air cells are clear. Cervical spine: No acute fracture or traumatic malalignment. Moderate multilevel degenerative changes, greatest at C6-C7. Multilevel hypertrophic facet changes, greater on the left.. Airway is patent. No cervical lymphadenopathy. There is a very large hypodense lesion occupying the majority of the right thyroid lobe measuring greater than 5.5 x 4.3 cm. This is not significantly changed since CT of 10/23/2013. IMPRESSION: 1. No acute intracranial process. 2. No acute fracture or traumatic malalignment of the cervical spine. 3. 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 This could be further evaluated with a thyroid ultrasound on a nonemergent basis. Dictated by: Dictated on workstation # [id number]
[2016-07-23 20:54] LABS: BILIRUBIN,URINE NEGATIVE (NEGATIVE); KETONES,URINE NEGATIVE (NEGATIVE); NITRITE,URINE NEGATIVE (NEGATIVE); PH,URINE 6 (5-9); PROTEIN,URINE NEGATIVE (NEGATIVE)
[2016-07-23 20:55] LABS: LEUKOCYTE ESTERASE ,URINE 1+ (NEGATIVE); SQUAMOUS EPITHELIAL CELL,UR 0-2 /HPF; UROBILINOGEN,URINE NORMAL (NORMAL); WBC,URINE 0-2 /HPF
[2016-07-23] MEDS ORDERED: KETOROLAC 30 MG/ML VIAL IVP ONE (21:15)
[2016-07-23 21:45] VITALS: BP 163/93
--- OUTSIDE RECORDS SUMMARY | 2016-08-15 09:30 | XMS REPORT | Continuity of Care Document ---
Author Author [facility] Organization [facility] Address Unknown Phone Unavailable Allergies Active Description Code Type Severity Reaction Onset Reported/Identified Relationship to Patient Clinical Status Yes codeine [id number] Drug Allergy Unknown N/A 11/12/2005 Medications Problems Date Dx Coded Attending Type Code Diagnosis Diagnosed By 04/05/2011 Ot 185 04/05/2011 Ot V58.0 07/26/2011 Ot 185 07/30/2012 Ot 185 10/06/2013 CONCHA DO, OZZY K Ot 272.0 10/06/2013 CONCHA DO, OZZY K Ot 401.9 10/06/2013 CONCHA DO, OZZY K Ot 414.00 10/06/2013 CONCHA DO, OZZY K Ot 458.9 10/06/2013 CONCHA DO, OZZY K Ot 780.60 10/06/2013 CONCHA DO, OZZY K Ot 780.79 10/06/2013 CONCHA DO, OZZY K Ot 782.3 10/06/2013 CONCHA DO, OZZY K Ot 786.02 10/06/2013 CONCHA DO, OZZY K Ot 786.05 10/06/2013 CONCHA DO, OZZY K Ot 786.09 10/06/2013 CONCHA DO, OZZY K Ot V45.81 01/14/2014 THAIS MARTINO, JOHN Naidu Ot 185 01/14/2014 THAIS MARTINO, JOHN Naidu Ot V58.69 03/13/2014 THAIS MARTINO, JOHN Naidu Ot 185 04/24/2014 THAIS MARTINO, JOHN Naidu Ot 185 04/24/2014 THAIS MARTINO, JOHN Naidu Ot V58.69 05/20/2014 THAIS MARTINO, JOHN Naidu Ot 185 05/20/2014 THAIS MARTINO, JOHN Naidu Ot V58.69 06/10/2014 THAIS MARTINO, JOHN Naidu Ot 185 06/10/2014 THAIS MARTINO, JOHN Naidu Ot V58.69 06/17/2014 Ot 211.3 BENIGN NEOPLASM LG BOWEL 06/17/2014 Ot 250.00 DIAB JANICE WO COMPL, TYPE II OR UNSPEC TY 06/17/2014 Ot 562.10 DIVERTICULOSIS COLON (W/O MENT OF HEMORR 08/14/2014 ALANNA MARTINO, RADHA Roche Ot V72.84 08/27/2014 THAIS MARTINO, JOHN Naidu Ot 185 08/27/2014 THAIS MARTINO, JOHN Elysia Ot V58.69 09/03/2014 Ot 185 09/03/2014 THAIS MARTINO, JOHN Naidu Ot 185 09/03/2014 THAIS MARTINO, JOHN Naidu Ot 553.3 09/03/2014 THAIS MARTINO, JOHN Elysia Ot 793.99 09/03/2014 THAIS MARTINO, JOHN Naidu Ot 185 09/03/2014 THAIS MARTINO, JOHN Naidu Ot V58.69 09/03/2014 THAIS MARTINO, JOHN Naidu Ot 185 09/03/2014 THAIS MARTINO, JOHN Naidu Ot V58.69 09/03/2014 THAIS MARTINO, JOHN Naidu Ot 185 09/03/2014 THAIS MARTINO, JOHN Naidu Ot V58.69 09/04/2014 THAIS MARTINO, JOHN Naidu Ot 185 09/04/2014 THAIS MARTINO, JOHN Naidu Ot V58.69 11/28/2014 THAIS MARTINO, JOHN Naidu Ot 185 11/28/2014 THAIS MARTINO, JOHN Naidu Ot V58.69 12/02/2014 THAIS MARTINO, JOHN Naidu Ot 185 MALIGN NEOPL PROSTATE 12/02/2014 THAIS MARTINO, JOHN Naidu Ot V58.69 OT MED,LT,CURRENT USE 12/05/2014 Ot 185 12/05/2014 THAIS MARTINO, JOHN Naidu Ot 185 12/05/2014 THAIS MARTINO, JOHN Naidu Ot 553.3 12/05/2014 THAIS MARTINO, JOHN Elysia Ot 793.99 12/05/2014 THAIS MARTINO, JOHN Naidu Ot 185 12/05/2014 THAIS MARTINO, JOHN Naidu Ot V58.69 12/11/2014 THAIS MARTINO, JOHN Naidu Ot 185 12/11/2014 THAIS MARTINO, JOHN Naidu Ot 789.00 12/12/2014 MARIA C MARTINO, HOLLY Patel Ot 530.11 REFLUX ESOPHAGITIS 12/12/2014 MARIA C MARTINO, HOLLY Patel Ot 530.3 ESOPHAGEAL STRICTURE 12/12/2014 MARIA C MARTINO, HOLLY Patel Ot 553.3 DIAPHRAGMATIC HERNIA 12/13/2014 MARIA C MARTINO, HOLLY Patel Ot V72.84 12/13/2014 THAIS MARTINO, JOHN Naidu Ot 185 12/13/2014 THAIS MARTINO, JOHN Naidu Ot V58.69 12/17/2014 THAIS MARTINO, JOHN Naidu Ot 185 12/17/2014 THAIS MARTINO, JOHN Naidu Ot 789.00 12/23/2014 Ot 185 12/23/2014 THAIS MARTINO, JOHN Naidu Ot 185 12/23/2014 THAIS MARTINO, JOHN Naidu Ot 553.3 12/23/2014 THAIS MARTINO, JOHN Naidu Ot 793.99 12/23/2014 THAIS MARTINO, JOHN Naidu Ot 185 12/23/2014 THAIS MARTINO, JOHN Elysia Ot 789.00 12/23/2014 THAIS MARTINO, JOHN Naidu Ot 185 12/23/2014 THAIS MARTINO, JOHN Naidu Ot V58.69 12/23/2014 THAIS MARTINO, JOHN Naidu Ot 185 12/23/2014 THAIS MARTINO, JOHN Naidu Ot 789.00 12/23/2014 MARIA C MARTINO, HOLLY S Ot V72.84 12/23/2014 MARIA C MARTINO, HOLLY S Ot 787.20 12/23/2014 MARIA C MARTINO, HOLLY S Ot V72.84 12/23/2014 MARIA C MARTINO, HOLLY S Ot 250.00 DIAB JANICE WO COMPL, TYPE II OR UNSPEC TY 12/23/2014 MARIA C MARTINO, HOLLY S Ot 389.9 HEARING LOSS NOS 12/23/2014 MARIA C MARTINO, HOLLY S Ot 401.9 HYPERTENSION NOS 12/23/2014 MARIA C MARTINO, HOLLY S Ot 412 OLD MYOCARDIAL INFARCT 12/23/2014 MARIA C MARTINO, HOLLY S Ot 530.11 REFLUX ESOPHAGITIS 12/23/2014 MARIA C MARTINO, HOLLY S Ot 530.3 ESOPHAGEAL STRICTURE 12/23/2014 MARIA C MARTINO, HOLLY S Ot 553.3 DIAPHRAGMATIC HERNIA 12/23/2014 MARIA C MARTINO, HOLLY S Ot 716.90 ARTHROPATHY NOS-UNSPEC 12/23/2014 MARIA C MARTINO, HOLLY S Ot V12.72 PERSONAL HISTORY OF COLONIC POLYPS 12/23/2014 MARIA C MARTINO, HOLLY S Ot V58.69 OTH MED,LT,CURRENT USE 01/13/2015 THAIS MARTINO, JOHN Naidu Ot 185 01/13/2015 THAIS MARTINO, JOHN Naidu Ot 789.00 01/22/2015 THAIS MARTINO, JOHN Naidu Ot 185 MALIGN NEOPL PROSTATE 01/22/2015 THAIS MARTINO, JOHN Naidu Ot V58.69 OTH MED,LT,CURRENT USE 02/10/2015 THAIS MARTINO, JOHN Naidu Ot 185 02/10/2015 THAIS MARTINO, JOHN Naidu Ot 789.00 03/17/2015 Ot 709.9 03/17/2015 Ot V72.81 03/17/2015 Ot V72.83 03/17/2015 Ot 185 03/17/2015 Ot 228.04 03/17/2015 Ot 553.3 03/17/2015 Ot 562.10 03/17/2015 Ot 733.90 03/17/2015 Ot 753.10 03/17/2015 Ot 785.6 03/17/2015 Ot 185 03/17/2015 Ot 185 03/17/2015 Ot 185 03/17/2015 Ot 185 03/17/2015 HARINDER MARTINO, EVAN E Ot 185 03/17/2015 HARINDER MARTINO, EVAN E Ot 185 03/17/2015 HARINDER MARTINO, EVAN E Ot 185 03/17/2015 THAIS MARTINO, JOHN Elysia Ot 185 03/17/2015 THAIS MARTINO, JOHN Elysia Ot 553.3 03/17/2015 THAIS MARTINO, JOHN Elysia Ot 793.99 03/17/2015 ALANNA MARTINO, RADHA Roche Ot V72.84 03/17/2015 THAIS MARTINO, JOHN Elysia Ot 185 03/17/2015 THAIS MARTINO, JOHN Elysia Ot 789.00 03/17/2015 THAIS MARTINO, JOHN Elysia Ot 185 03/17/2015 THAIS MARTINO, JOHN Naidu Ot 789.00 03/17/2015 MARIA C MARTINO, HOLLY S Ot V72.84 03/17/2015 MARIA C MARTINO, HOLLY S Ot 787.20 03/17/2015 MARIA C MARTINO, HOLLY S Ot V72.84 03/17/2015 THAIS MARTINO, JOHN Elysia Ot C61 03/17/2015 THAIS MARTINO, JOHN Elysia Ot E04.9 03/17/2015 THAIS MARTINO, JOHN Elysia Ot E11.9 03/17/2015 THAIS MARTINO, JOHN Elysia Ot I10 03/17/2015 THAIS MARTINO, JOHN Elysia Ot M19.90 03/17/2015 THAIS MARTINO, JOHN Naidu Ot M25.552 03/17/2015 THAIS MARTINO, JOHN Elysia Ot R10.9 03/17/2015 THAIS MARTINO, JOHN Elysia Ot R35.0 03/17/2015 THAIS MARTINO, JOHN Elysia Ot Z79.818 03/17/2015 THAIS MARTINO, JOHN Elysia Ot Z92.3 04/11/2015 THAIS MARTINO, JOHN Elysia Ot C61 04/11/2015 THAIS MARTINO, JOHN Elysia Ot E04.9 04/11/2015 THAIS MARTINO, JOHN Naidu Ot E11.9 04/11/2015 THAIS MARTINO, JOHN Naidu Ot I10 04/11/2015 THAIS MARTINO, JOHN Naidu Ot M19.90 04/11/2015 THAIS MARTINO, JOHN Naidu Ot M25.552 04/11/2015 THAIS MARTINO, JOHN Naidu Ot R10.9 04/11/2015 THAIS MARTINO, JOHN Naidu Ot R35.0 04/11/2015 THAIS MARTINO, JOHN Naidu Ot Z79.818 04/11/2015 THAIS MARTINO, JOHN Naidu Ot Z92.3 04/30/2015 THAIS MARTINO, JOHN Naidu Ot C61 04/30/2015 THAIS MARTINO, JOHN Naidu Ot E04.9 04/30/2015 THAIS MARTINO, JOHN Naidu Ot E11.9 04/30/2015 THAIS MARTINO, JOHN Naidu Ot I10 04/30/2015 THAIS MARTINO, JOHN Naidu Ot M19.90 04/30/2015 THAIS MARTINO, JOHN Naidu Ot M25.552 04/30/2015 THAIS MARTINO, JOHN Naidu Ot R10.9 04/30/2015 THAIS MARTINO, JOHN Naidu Ot R35.0 04/30/2015 THAIS MARTINO, JOHN Naidu Ot Z79.818 04/30/2015 THAIS MARTINO, JOHN Naidu Ot Z92.3 05/19/2015 THAIS MARTINO, JOHN Naidu Ot C61 MALIGNANT NEOPLASM OF PROSTATE 05/19/2015 THAIS MARTINO, JOHN Naidu Ot E04.9 NONTOXIC GOITER, UNSPECIFIED 05/19/2015 THAIS MARTINO, JOHN Naidu Ot E11.9 TYPE 2 DIABETES MELLITUS WITHOUT COMPLIC 05/19/2015 THAIS MARTINO, JOHN Naidu Ot I10 ESSENTIAL (PRIMARY) HYPERTENSION 05/19/2015 THAIS MARTINO, JOHN Naidu Ot M19.90 UNSPECIFIED OSTEOARTHRITIS, UNSPECIFIED 05/19/2015 THAIS MARTINO, JOHN Naidu Ot M25.552 PAIN IN LEFT HIP 05/19/2015 THAIS MARTINO, JOHN aNidu Ot R10.9 05/19/2015 THAIS MARTINO, JOHN Naidu Ot R35.0 FREQUENCY OF MICTURITION 05/19/2015 THAIS MARTINO, OJHN Naidu Ot Z79.818 LNG TRM (CRNT) USE OF AGNT AFF ESTROG RE 05/19/2015 THAIS MARTINO, JOHN Naidu Ot Z92.3 PERSONAL HISTORY OF IRRADIATION 05/17/2016 THAIS MARTINO, JOHN Naidu Ot 185 MALIGN NEOPL PROSTATE 05/17/2016 THAIS MARTINO, JOHN Naidu Ot 553.3 DIAPHRAGMATIC HERNIA 05/17/2016 JOHN PLASCENCIA MD, Ot 793.99 OT NOSP (ABN) FINDINGS RADIOLOGICAL O 05/17/2016 JOHN PLASCENCIA MD, Ot 185 MALIGN NEOPL PROSTATE 05/17/2016 JOHN PLASCENCIA MD, Ot 789.00 ABDOMINAL PAIN, UNSPECIFIED SITE 05/17/2016 JOHN PLASCENCIA MD, Ot 185 MALIGN NEOPL PROSTATE 05/17/2016 JOHN PLASCENCIA MD, Ot 789.00 ABDOMINAL PAIN, UNSPECIFIED SITE 05/17/2016 HOLLY LOMBARDI MD Ot V72.84 EXAM PRE-OPERATIVE NOS 05/17/2016 HOLLY LOMBARDI MD Ot 787.20 DYSPHAGIA, UNSPECIFIED 05/17/2016 HOLLY LOMBARDI MD Ot V72.84 EXAM PRE-OPERATIVE NOS 05/17/2016 JOHN PLASCENCIA MD, Ot C61 MALIGNANT NEOPLASM OF PROSTATE 05/17/2016 JOHN PLASCENCIA MD, Ot E04.9 NONTOXIC GOITER, UNSPECIFIED 05/17/2016 JOHN PLASCENCIA MD, Ot E11.9 TYPE 2 DIABETES MELLITUS WITHOUT COMPLIC 05/17/2016 JOHN PLASCENCIA MD, Ot I10 ESSENTIAL (PRIMARY) HYPERTENSION 05/17/2016 JOHN PLASCENCIA MD, Ot M19.90 UNSPECIFIED OSTEOARTHRITIS, UNSPECIFIED 05/17/2016 JOHN PLASCENCIA MD, Ot M25.552 PAIN IN LEFT HIP 05/17/2016 JONH PLASCENCIA MD Ot R10.9 UNSPECIFIED ABDOMINAL PAIN 05/17/2016 JOHN PLASCENCIA MD, Ot R35.0 FREQUENCY OF MICTURITION 05/17/2016 JOHN PLASCENCIA MD, Ot Z79.818 LNG TRM (CRNT) USE OF AGNT AFF ESTROG RE 05/17/2016 JOHN PLASCENCIA MD, Ot Z92.3 PERSONAL HISTORY OF IRRADIATION 05/17/2016 JOHN PLASCENCIA MD, Ot C61 MALIGNANT NEOPLASM OF PROSTATE 05/17/2016 JOHN PLASCENCIA MD Ot E04.9 NONTOXIC GOITER, UNSPECIFIED 05/17/2016 JOHN PLASCENCIA MD Ot E11.9 TYPE 2 DIABETES MELLITUS WITHOUT COMPLIC 05/17/2016 JOHN PLASCENCIA MD Ot I10 ESSENTIAL (PRIMARY) HYPERTENSION 05/17/2016 JOHN PLASCENCIA MD Ot M19.90 UNSPECIFIED OSTEOARTHRITIS, UNSPECIFIED 05/17/2016 JOHN PLASCENCIA MD, Ot M25.552 PAIN IN LEFT HIP 05/17/2016 JOHN PLASCENCIA MD Ot R10.9 UNSPECIFIED ABDOMINAL PAIN 05/17/2016 JOHN PLASCENCIA MD Ot R35.0 FREQUENCY OF MICTURITION 05/17/2016 JOHN PLASCENCIA MD Ot Z79.818 LNG TRM (CRNT) USE OF AGNT AFF ESTROG RE 05/17/2016 JOHN PLASCENCIA MD, Ot Z92.3 PERSONAL HISTORY OF IRRADIATION 05/19/2016 LETA IVEY MD Ot E11.9 TYPE 2 DIABETES MELLITUS WITHOUT COMPLIC 05/19/2016 LETA IVEY MD Ot G81.94 HEMIPLEGIA, UNSPECIFIED AFFECTING LEFT N 05/19/2016 LETA IVEY MD Ot I63.9 CEREBRAL INFARCTION, UNSPECIFIED 05/19/2016 LETA IVEY MD Ot M21.372 FOOT DROP, LEFT FOOT 05/19/2016 LETA IVEY MD Ot R29.810 FACIAL WEAKNESS 05/24/2016 BRADY TAN MD Ot E11.9 TYPE 2 DIABETES MELLITUS WITHOUT COMPLIC 05/24/2016 BRADY TAN MD Ot I10 ESSENTIAL (PRIMARY) HYPERTENSION 05/24/2016 BRADY TAN MD Ot I69.322 DYSARTHRIA FOLLOWING CEREBRAL INFARCTION 05/24/2016 BRADY TAN MD Ot I69.354 HEMIPLGA FOLLOWING CEREBRAL INFRC AFFECT 05/24/2016 BRADY TAN MD Ot I69.398 OTHER SEQUELAE OF CEREBRAL INFARCTION 05/24/2016 BRADY TAN MD Ot R26.89 OTHER ABNORMALITIES OF GAIT AND MOBILITY 05/24/2016 BRADY TAN MD Ot Z66 DO NOT RESUSCITATE 05/31/2016 BRADY TAN MD Ot E11.9 TYPE 2 DIABETES MELLITUS WITHOUT COMPLIC 05/31/2016 BRADY TAN MD Ot I10 ESSENTIAL (PRIMARY) HYPERTENSION 05/31/2016 BRADY TAN MD Ot I69.322 DYSARTHRIA FOLLOWING CEREBRAL INFARCTION 05/31/2016 BRADY TAN MD Ot I69.354 HEMIPLGA FOLLOWING CEREBRAL INFRC AFFECT 05/31/2016 BRADY TAN MD Ot I69.398 OTHER SEQUELAE OF CEREBRAL INFARCTION 05/31/2016 BRADY TAN MD Ot R26.89 OTHER ABNORMALITIES OF GAIT AND MOBILITY 05/31/2016 BRADY TAN MD Ot Z66 DO NOT RESUSCITATE 06/01/2016 BRADY TAN MD Ot D50.9 IRON DEFICIENCY ANEMIA, UNSPECIFIED 06/01/2016 BRADY TAN MD Ot E11.9 TYPE 2 DIABETES MELLITUS WITHOUT COMPLIC 06/01/2016 BRADY TAN MD Ot E78.5 HYPERLIPIDEMIA, UNSPECIFIED 06/01/2016 BRADY TAN MD Ot I10 ESSENTIAL (PRIMARY) HYPERTENSION 06/01/2016 BRADY TAN MD Ot I25.10 ATHSCL HEART DISEASE OF [place] CORONARY 06/01/2016 BRADY TAN MD Ot I69.320 APHASIA FOLLOWING CEREBRAL INFARCTION 06/01/2016 BRADY TAN MD Ot I69.322 DYSARTHRIA FOLLOWING CEREBRAL INFARCTION 06/01/2016 BRADY TAN MD Ot I69.354 HEMIPLGA FOLLOWING CEREBRAL INFRC AFFECT 06/01/2016 BRADY TAN MD Ot I69.398 OTHER SEQUELAE OF CEREBRAL INFARCTION 06/01/2016 BRADY TAN MD Ot N39.44 NOCTURNAL ENURESIS 06/01/2016 BRADY TAN MD Ot R26.89 OTHER ABNORMALITIES OF GAIT AND MOBILITY 06/01/2016 BRADY TAN MD Ot Z66 DO NOT RESUSCITATE 06/01/2016 BRADY TAN MD Ot Z95.1 PRESENCE OF AORTOCORONARY BYPASS GRAFT 07/26/2016 ANDRY MICHAELS MD Ot E07.9 DISORDER OF THYROID, UNSPECIFIED 07/26/2016 ANDRY MICHAELS MD, Ot I10 ESSENTIAL (PRIMARY) HYPERTENSION 07/26/2016 ANDRY MICHAELS MD Ot I25.10 ATHSCL HEART DISEASE OF [place] CORONARY 07/26/2016 ANDRY MICHAELS MD Ot 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 07/26/2016 ANDRY MICHAELS MD Ot J44.9 CHRONIC OBSTRUCTIVE PULMONARY DISEASE , U 07/26/2016 ANDRY MICHAELS MD Ot M16.0 BILATERAL PRIMARY OSTEOARTHRITIS OF HIP 07/26/2016 ANDRY MICHAELS MD Ot S09.90XA UNSPECIFIED INJURY OF HEAD, INITIAL ENCO 07/26/2016 ANDRY MICHAELS MD Ot W01.0XXA FALL SAME LEV FROM SLIP/TRIP W/O STRIKE 07/26/2016 ANDRY MICHAELS MD Ot Y92.[address] [facility] [address] IN [facility] NON[facility] ( [facility] 07/26/2016 ANDRY MICHAELS MD Ot Y99.8 OTHER EXTERNAL CAUSE STATUS 07/26/2016 ANDRY MICHAELS MD, Ot Z79.82 LEAD [employer]LE [employer]ELOPER (CURRENT) USE OF ASPIRIN 07/26/2016 ANDRY MICHAELS MD Ot Z79.899 OTHER LEAD [employer] DEVELOPER (CURRENT) DRUG THERAPY 07/26/2016 ANDRY MICHAELS MD Ot E07.9 DISORDER OF THYROID, UNSPECIFIED 07/26/2016 ANDRY MICHAELS MD Ot I10 ESSENTIAL (PRIMARY) HYPERTENSION 07/26/2016 ANDRY MICHAELS MD Ot I25.10 ATHSCL HEART DISEASE OF [place] CORONARY 07/26/2016 ANDRY MICHAELS MD Ot 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 07/26/2016 ANDRY MICHAELS MD Ot J44.9 CHRONIC OBSTRUCTIVE PULMONARY DISEASE , U 07/26/2016 ANDRY MICHAELS MD Ot M16.0 BILATERAL PRIMARY OSTEOARTHRITIS OF HIP 07/26/2016 ANDRY MICHAELS MD Ot S09.90XA UNSPECIFIED INJURY OF HEAD, INITIAL ENCO 07/26/2016 ANDRY MICHAELS MD Ot S79.911A UNSPECIFIED INJURY OF RIGHT HIP, INITIAL 07/26/2016 ANDRY MICHAELS MD Ot W01.0XXA FALL SAME LEV FROM SLIP/TRIP W/O STRIKE 07/26/2016 ANDRY MICHAELS MD Ot Y92.[address] [facility] [address] IN [facility] NON[facility] ( PRIVATE 07/26/2016 ANDRY MICHAELS MD Ot Y99.8 OTHER EXTERNAL CAUSE STATUS 07/26/2016 ANDRY MICHAELS MD, Ot Z79.82 HALF-WAY (CURRENT) USE OF ASPIRIN 07/26/2016 ANDRY MICHAELS MD Ot Z79.899 OTHER HALF-WAY (CURRENT) DRUG THERAPY 07/26/2016 ANDRY MICHAELS MD Ot E07.9 DISORDER OF THYROID, UNSPECIFIED 07/26/2016 ANDRY MICHAELS MD Ot I10 ESSENTIAL (PRIMARY) HYPERTENSION 07/26/2016 ANDRY MICHAELS MD, Ot I25.10 ATHSCL HEART DISEASE OF [place] CORONARY 07/26/2016 ANDRY MICHAELS MD, Ot 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 07/26/2016 ANDRY MICHAELS MD, Ot J44.9 CHRONIC OBSTRUCTIVE PULMONARY DISEASE , U 07/26/2016 ANDRY MICHAELS MD, Ot M16.0 BILATERAL PRIMARY OSTEOARTHRITIS OF HIP 07/26/2016 ANDRY MICHAELS MD, Ot S09.90XA UNSPECIFIED INJURY OF HEAD, INITIAL ENCO 07/26/2016 ANDRY MICHAELS MD, Ot S79.911A UNSPECIFIED INJURY OF RIGHT HIP, INITIAL 07/26/2016 ANDRY MICHAELS MD, Ot W01.0XXA FALL SAME LEV FROM SLIP/TRIP W/O STRIKE 07/26/2016 ANDRY MICHAELS MD, Ot Y92.[address] [facility] [address] IN [facility] NON[facility] ( PRIVATE 07/26/2016 ANDRY MICHAELS MD, Ot Y99.8 OTHER EXTERNAL CAUSE STATUS 07/26/2016 ANDRY MICHAELS MD, Ot Z79.82 LEAD [employer] DEVELOPER (CURRENT) USE OF ASPIRIN 07/26/2016 ANDRY MICHAELS MD, Ot Z79.899 OTHER LEAD [employer] DEVELOPER (CURRENT) DRUG THERAPY 07/26/2016 ANDRY MICHAELS MD, Ot Z95.1 PRESENCE OF AORTOCORONARY BYPASS GRAFT Procedures Results Test Result Range Complete blood count (CBC) with automated white blood cell (WBC) differential - 05/17/16 09:15 Blood leukocytes automated count (number/volume) 6.6 10*3/ uL 4.3-11.0 Blood erythrocytes automated count (number/volume) 4.36 10*6 /uL 4.35-5.85 Venous blood hemoglobin measurement (mass/volume) 12.9 g/dL 13.3-17.7 Blood hematocrit (volume fraction) 37 % 40-54 Automated erythrocyte mean corpuscular volume 84 [foz_us] 80-99 Automated erythrocyte mean corpuscular hemoglobin (mass per erythrocyte) 30 pg 25-34 Automated erythrocyte mean corpuscular hemoglobin concentration measurement ( mass/volume) 35 g/dL 32-36 Automated erythrocyte distribution width ratio 13.3 % 10.0-14.5 Automated blood platelet count (count/volume) 171 10*3/uL 130-400 Automated blood platelet mean volume measurement 9.8 [foz_us ] 7.4-10.4 Automated blood neutrophils/100 leukocytes 64 % 42-75 Automated blood lymphocytes/100 leukocytes 21 % 12-44 Blood monocytes/100 leukocytes 9 % 0-12 Automated blood eosinophils/100 leukocytes 6 % 0-10 Automated blood basophils/100 leukocytes 1 % 0-10 Blood neutrophils automated count (number/volume) 4.2 10*3 1.8-7.8 Blood lymphocytes automated count (number/volume) 1.4 10*3 1.0-4.0 Blood monocytes automated count (number/volume) 0.6 10*3 0.0-1.0 Automated eosinophil count 0.4 10*3/uL 0.0-0.3 Automated blood basophil count (count/volume) 0.0 10*3/uL 0.0-0.1 PT panel in platelet poor plasma by coagulation assay - 05/17/16 09:15 Prothrombin time (PT) in platelet poor plasma by coagulation assay 13.4 s 12.2-14.7 INR in platelet poor plasma or blood by coagulation assay 1.1 0.8-1.4 Activated partial thromboplastin time (aPTT) in platelet poor plasma bycoagulation assay - 05/17/16 09:15 Activated partial thromboplastin time (aPTT) in platelet poor plasma bycoagulation assay 28 s 24-35 Fibrin D-dimer FEU measurement in platelet poor plasma (mass/volume) - 09:15 Fibrin D-dimer FEU measurement in platelet poor plasma (mass/volume) 0.76 ug/mL 0.00-0.49 Comprehensive metabolic panel - 05/17/16 09:15 Serum or plasma sodium measurement (moles/volume) 138 mmol/ L 135-145 Serum or plasma potassium measurement (moles/volume) 3.7 mmol/L 3.6-5.0 Serum or plasma chloride measurement (moles/volume) 105 mmol /L 98-107 Carbon dioxide 25 mmol/L 21-32 Serum or plasma anion gap determination (moles/volume) 8 mmol/L 5-14 Serum or plasma urea nitrogen measurement (mass/volume) 26 mg/dL 7-18 Serum or plasma creatinine measurement (mass/volume) 0.94 mg /dL 0.60-1.30 Serum or plasma urea nitrogen/creatinine mass ratio 28 NRG Serum or plasma creatinine measurement with calculation of estimated glomerular filtration rate > NRG Serum or plasma glucose measurement (mass/volume) 118 mg/dL 70-105 Serum or plasma calcium measurement (mass/volume) 9.1 mg/dL 8.5-10.1 Serum or plasma total bilirubin measurement (mass/volume) 0.8 mg/dL 0.1-1.0 Serum or plasma alkaline phosphatase measurement (enzymatic activity/volume) 79 U/L 40-136 Serum or plasma aspartate aminotransferase measurement (enzymatic activity/ volume) 13 U/L 5-34 Serum or plasma alanine aminotransferase measurement (enzymatic activity/volume ) 16 U/L 0-55 Serum or plasma protein measurement (mass/volume) 5.7 g/dL 6.4-8.2 Serum or plasma albumin measurement (mass/volume) 3.8 g/dL 3.2-4.5 Complete urinalysis with reflex to culture - 05/17/16 11:30 Urine color determination YELLOW NRG Urine clarity determination CLEAR NRG Urine pH measurement by test strip 7 5- 9 Specific gravity of urine by test strip 1.010 1.016-1.022 Urine protein assay by test strip, semi-quantitative 1+ NEGATIVE Urine glucose detection by automated test strip NEGATIVE NEGATIVE Erythrocytes detection in urine sediment by light microscopy NEGATIVE NEGATIVE Urine ketones detection by automated test strip NEGATIVE NEGATIVE Urine nitrite detection by test strip NEGATIVE NEGATIVE Urine total bilirubin detection by test strip NEGATIVE NEGATIVE Urine urobilinogen measurement by automated test strip (mass/volume) NORMAL NORMAL Urine leukocyte esterase detection by dipstick NEGATIVE NEGATIVE Automated urine sediment erythrocyte count by microscopy (number/high power field) NONE NRG Automated urine sediment leukocyte count by microscopy (number/high power field ) NONE NRG Bacteria detection in urine sediment by light microscopy NEGATIVE NRG Squamous epithelial cells detection in urine sediment by light microscopy 0-2 NRG Crystals detection in urine sediment by light microscopy NONE NRG Casts detection in urine sediment by light microscopy PRESENT NRG Mucus detection in urine sediment by light microscopy MODERATE NRG Complete urinalysis with reflex to culture NO NRG Hyaline casts detection in urine sediment by light microscopy 5-10 NRG Lipid 1996 panel - 05/18/16 05:24 Serum or plasma triglyceride measurement (mass/volume) 158 mg/dL <150 Serum or plasma cholesterol measurement (mass/volume) 152 mg /dL < 200 Serum or plasma cholesterol in HDL measurement (mass/volume) 34 mg/dL 40-60 Cholesterol in LDL [mass/volume] in serum or plasma by direct assay 92 mg/dL 1-129 Serum or plasma cholesterol in VLDL measurement (mass/volume) 32 mg/dL 5-40 Complete blood count (CBC) with automated white blood cell (WBC) differential - 05/20/16 05:08 Blood leukocytes automated count (number/volume) 6.8 10*3/ uL 4.3-11.0 Blood erythrocytes automated count (number/volume) 4.49 10*6 /uL 4.35-5.85 Venous blood hemoglobin measurement (mass/volume) 13.2 g/dL 13.3-17.7 Blood hematocrit (volume fraction) 38 % 40-54 Automated erythrocyte mean corpuscular volume 84 [foz_us] 80-99 Automated erythrocyte mean corpuscular hemoglobin (mass per erythrocyte) 29 pg 25-34 Automated erythrocyte mean corpuscular hemoglobin concentration measurement ( mass/volume) 35 g/dL 32-36 Automated erythrocyte distribution width ratio 13.3 % 10.0-14.5 Automated blood platelet count (count/volume) 157 10*3/uL 130-400 Automated blood platelet mean volume measurement 10.2 [foz_ us] 7.4-10.4 Automated blood neutrophils/100 leukocytes 61 % 42-75 Automated blood lymphocytes/100 leukocytes 21 % 12-44 Blood monocytes/100 leukocytes 11 % 0-12 Automated blood eosinophils/100 leukocytes 7 % 0-10 Automated blood basophils/100 leukocytes 0 % 0-10 Blood neutrophils automated count (number/volume) 4.2 10*3 1.8-7.8 Blood lymphocytes automated count (number/volume) 1.5 10*3 1.0-4.0 Blood monocytes automated count (number/volume) 0.7 10*3 0.0-1.0 Automated eosinophil count 0.5 10*3/uL 0.0-0.3 Automated blood basophil count (count/volume) 0.0 10*3/uL 0.0-0.1 Comprehensive metabolic panel - 05/20/16 05:08 Serum or plasma sodium measurement (moles/volume) 137 mmol/ L 135-145 Serum or plasma potassium measurement (moles/volume) 3.8 mmol/L 3.6-5.0 Serum or plasma chloride measurement (moles/volume) 104 mmol /L 98-107 Carbon dioxide 25 mmol/L 21-32 Serum or plasma anion gap determination (moles/volume) 8 mmol/L 5-14 Serum or plasma urea nitrogen measurement (mass/volume) 16 mg/dL 7-18 Serum or plasma creatinine measurement (mass/volume) 0.85 mg /dL 0.60-1.30 Serum or plasma urea nitrogen/creatinine mass ratio 19 NRG Serum or plasma creatinine measurement with calculation of estimated glomerular filtration rate > NRG Serum or plasma glucose measurement (mass/volume) 103 mg/dL 70-105 Serum or plasma calcium measurement (mass/volume) 8.9 mg/dL 8.5-10.1 Serum or plasma total bilirubin measurement (mass/volume) 0.8 mg/dL 0.1-1.0 Serum or plasma alkaline phosphatase measurement (enzymatic activity/volume) 81 U/L 40-136 Serum or plasma aspartate aminotransferase measurement (enzymatic activity/ volume) 12 U/L 5-34 Serum or plasma alanine aminotransferase measurement (enzymatic activity/volume ) 15 U/L 0-55 Serum or plasma protein measurement (mass/volume) 5.7 g/dL 6.4-8.2 Serum or plasma albumin measurement (mass/volume) 3.7 g/dL 3.2-4.5 Complete urinalysis with reflex to culture - 05/26/16 08:15 Urine color determination YELLOW NRG Urine clarity determination CLEAR NRG Urine pH measurement by test strip 5 5- 9 Specific gravity of urine by test strip 1.020 1.016-1.022 Urine protein assay by test strip, semi-quantitative NEGATIVE NEGATIVE Urine glucose detection by automated test strip NEGATIVE NEGATIVE Erythrocytes detection in urine sediment by light microscopy NEGATIVE NEGATIVE Urine ketones detection by automated test strip NEGATIVE NEGATIVE Urine nitrite detection by test strip NEGATIVE NEGATIVE Urine total bilirubin detection by test strip NEGATIVE NEGATIVE Urine urobilinogen measurement by automated test strip (mass/volume) NORMAL NORMAL Urine leukocyte esterase detection by dipstick 1+ NEGATIVE Automated urine sediment erythrocyte count by microscopy (number/high power field) NONE NRG Automated urine sediment leukocyte count by microscopy (number/high power field ) [HPF] NRG Bacteria detection in urine sediment by light microscopy NEGATIVE NRG Squamous epithelial cells detection in urine sediment by light microscopy 0-2 NRG Crystals detection in urine sediment by light microscopy NONE NRG Casts detection in urine sediment by light microscopy NONE NRG Mucus detection in urine sediment by light microscopy LARGE NRG Complete urinalysis with reflex to culture NO NRG Complete blood count (CBC) with automated white blood cell (WBC) differential - 07/23/16 18:24 Blood leukocytes automated count (number/volume) 7.0 10*3/ uL 4.3-11.0 Blood erythrocytes automated count (number/volume) 4.47 10*6 /uL 4.35-5.85 Venous blood hemoglobin measurement (mass/volume) 13.0 g/dL 13.3-17.7 Blood hematocrit (volume fraction) 37 % 40-54 Automated erythrocyte mean corpuscular volume 84 [foz_us] 80-99 Automated erythrocyte mean corpuscular hemoglobin (mass per erythrocyte) 29 pg 25-34 Automated erythrocyte mean corpuscular hemoglobin concentration measurement ( mass/volume) 35 g/dL 32-36 Automated erythrocyte distribution width ratio 13.4 % 10.0-14.5 Automated blood platelet count (count/volume) 193 10*3/uL 130-400 Automated blood platelet mean volume measurement 10.1 [foz_ us] 7.4-10.4 Automated blood neutrophils/100 leukocytes 58 % 42-75 Automated blood lymphocytes/100 leukocytes 27 % 12-44 Blood monocytes/100 leukocytes 12 % 0-12 Automated blood eosinophils/100 leukocytes 3 % 0-10 Automated blood basophils/100 leukocytes 0 % 0-10 Blood neutrophils automated count (number/volume) 4.0 10*3 1.8-7.8 Blood lymphocytes automated count (number/volume) 1.9 10*3 1.0-4.0 Blood monocytes automated count (number/volume) 0.8 10*3 0.0-1.0 Automated eosinophil count 0.2 10*3/uL 0.0-0.3 Automated blood basophil count (count/volume) 0.0 10*3/uL 0.0-0.1 PT panel in platelet poor plasma by coagulation assay - 07/23/16 18:24 Prothrombin time (PT) in platelet poor plasma by coagulation assay 12.9 s 12.2-14.7 INR in platelet poor plasma or blood by coagulation assay 1.0 0.8-1.4 Activated partial thromboplastin time (aPTT) in platelet poor plasma bycoagulation assay - 07/23/16 18:24 Activated partial thromboplastin time (aPTT) in platelet poor plasma bycoagulation assay 25 s 24-35 Comprehensive metabolic panel - 07/23/16 18:24 Serum or plasma sodium measurement (moles/volume) 141 mmol/ L 135-145 Serum or plasma potassium measurement (moles/volume) 3.6 mmol/L 3.6-5.0 Serum or plasma chloride measurement (moles/volume) 102 mmol /L 98-107 Carbon dioxide 28 mmol/L 21-32 Serum or plasma anion gap determination (moles/volume) 11 mmol/L 5-14 Serum or plasma urea nitrogen measurement (mass/volume) 23 mg/dL 7-18 Serum or plasma creatinine measurement (mass/volume) 0.88 mg /dL 0.60-1.30 Serum or plasma urea nitrogen/creatinine mass ratio 26 NRG Serum or plasma creatinine measurement with calculation of estimated glomerular filtration rate > NRG Serum or plasma glucose measurement (mass/volume) 97 mg/dL 70-105 Serum or plasma calcium measurement (mass/volume) 9.1 mg/dL 8.5-10.1 Serum or plasma total bilirubin measurement (mass/volume) 0.5 mg/dL 0.1-1.0 Serum or plasma alkaline phosphatase measurement (enzymatic activity/volume) 92 U/L 40-136 Serum or plasma aspartate aminotransferase measurement (enzymatic activity/ volume) 20 U/L 5-34 Serum or plasma alanine aminotransferase measurement (enzymatic activity/volume ) 17 U/L 0-55 Serum or plasma protein measurement (mass/volume) 6.4 g/dL 6.4-8.2 Serum or plasma albumin measurement (mass/volume) 3.9 g/dL 3.2-4.5 Magnesium - 07/23/16 18:24 Magnesium 2.1 mg/dL 1.8-2.4 Complete urinalysis with reflex to culture - 07/23/16 20:25 Urine color determination YELLOW NRG Urine clarity determination CLEAR NRG Urine pH measurement by test strip 6 5- 9 Specific gravity of urine by test strip 1.025 1.016-1.022 Urine protein assay by test strip, semi-quantitative NEGATIVE NEGATIVE Urine glucose detection by automated test strip NEGATIVE NEGATIVE Erythrocytes detection in urine sediment by light microscopy NEGATIVE NEGATIVE Urine ketones detection by automated test strip NEGATIVE NEGATIVE Urine nitrite detection by test strip NEGATIVE NEGATIVE Urine total bilirubin detection by test strip NEGATIVE NEGATIVE Urine urobilinogen measurement by automated test strip (mass/volume) NORMAL NORMAL Urine leukocyte esterase detection by dipstick 1+ NEGATIVE Automated urine sediment erythrocyte count by microscopy (number/high power field) NONE NRG Automated urine sediment leukocyte count by microscopy (number/high power field ) [HPF] NRG Bacteria detection in urine sediment by light microscopy NONE NRG Squamous epithelial cells detection in urine sediment by light microscopy 0-2 NRG Crystals detection in urine sediment by light microscopy NONE NRG Casts detection in urine sediment by light microscopy NONE NRG Mucus detection in urine sediment by light microscopy NEGATIVE NRG Complete urinalysis with reflex to culture NO NRG Encounters ACCT No. Visit Date/Time Discharge Status Pt. Type Provider Facility Loc./Unit Complaint [id number] 07/23/2016 18:11:00 2016 21:55:00 DIS Outpatient BRANDO MARTINO, ANDRY Arnold [facility] ER FALL, R HIP PAIN [id number] 05/19/2016 14:10:00 2016 15:31:00 DIS Inpatient BRITNEY MARTINO, BRADY E [facility] IRF CVA [id number] 05/17/2016 14:45:00 2016 14:10:00 DIS Inpatient LETA IVEY MD [facility] 4TH CONFUSION LEFT SIDED WEAKNESS [id number] 02/18/2015 12:47:00 2015 00:01:00 DIS Outpatient JOHN PLASCENCIA MD [facility] ONC [id number] 12/12/2014 07:52:00 2014 00:01:00 DIS Outpatient JOHN PLASCENCIA MD [facility] ONC [id number] 12/23/2014 10:22:00 2014 14:00:00 DIS Outpatient HOLLY LOMBARDI MD [facility] SDC DYSPHASIA [id number] 12/19/2014 06:04:00 2014 23:59:59 CLS Outpatient HOLLY LOMBARDI MD [facility] PREOP DYSPHASIA [id number] 12/12/2014 07:49:00 2014 23:59:59 CLS Outpatient JOHN PLASCENCIA MD [facility] RAD ABDOMINAL PAIN PROSTATE CANCER [id number] 12/12/2014 07:53:00 2014 11:15:00 DIS Outpatient HOLLY LOMBARDI MD [facility] SDC DYSPHAGIA [id number] 12/11/2014 09:29:00 2014 23:59:59 CLS Outpatient HOLLY LOMBARDI MD [facility] PREOP DYSPHAGIA [id number] 12/05/2014 11:45:00 2014 23:59:59 CLS Outpatient JOHN PLASCENCIA MD [facility] RAD ABD PAIN, PROSTATE CA [id number] 11/26/2014 12:35:00 2014 00:01:00 DIS Outpatient JOHN PLASCENCIA MD [facility] ONC [id number] 06/04/2014 09:59:00 2014 00:01:00 DIS Outpatient JOHN PLASCENCIA MD [facility] ONC [id number] 06/05/2014 05:58:00 2014 23:59:59 CLS Outpatient RADHA MONDRAGON MD [facility] PREOP [id number] 12/11/2013 11:50:00 2013 00:01:00 DIS Outpatient JOHN PLASCENCIA MD [facility] ONC [id number] 10/23/2013 11:48:00 2013 23:59:59 CLS Outpatient JOHN PLASCENCIA MD [facility] CARD PROSTATE CA [id number] 10/08/2013 08:49:00 2013 23:59:59 CLS Outpatient EVAN PIZANO MD [facility] ONC [id number] 10/06/2013 17:01:00 2013 18:57:00 DIS Emergency OZZY KERN DO [facility] ER [id number] 05/14/2013 08:47:00 2013 23:59:59 CLS Outpatient EVAN PIZANO MD [facility] ONC [id number] 10/30/2012 09:32:00 2012 23:59:59 CLS Outpatient EVAN PIZANO MD [facility] ONC [id number] 05/20/2015 00:09:00 KEYLA PLASCENCIA MD, JOHN Naidu [facility] ONC [id number] 03/17/2015 09:23:00 Document Registration [id number] 03/17/2015 09:23:00 Document Registration [id number] 06/17/2014 09:59:00 Document Registration [id number] 05/01/2012 08:47:00 Document Registration [id number] 10/28/2011 10:30:00 Document Registration [id number] 04/27/2011 08:36:00 Document Registration [id number] 03/11/2011 08:06:00 Document Registration [id number] 10/16/2010 07:59:00 Document Registration [id number] 07/21/2010 11:12:00 Document Registration [id number] 05/08/2010 10:39:00 Document Registration [id number] 05/07/2010 08:43:00 Document Registration [id number] 11/01/2005 13:35:00 Document Registration
== END 2016-07-23 21:55 | disposition home or self-care (01) ==
LOC: ER 18:11
DX: S09.90XA Unspecified injury of head, initial encounter (principal); S79.911A Unspecified injury of right hip, initial encounter; M16.0 Bilateral primary osteoarthritis of hip; J44.9 Chronic obstructive pulmonary disease, unspecified; I10 Essential (primary) hypertension; I25.10 Atherosclerotic heart disease of native coronary artery without angina pectoris; E07.9 Disorder of thyroid, unspecified; I69.920 Aphasia following unspecified cerebrovascular disease; Z79.82 Long term (current) use of aspirin; Z79.899 Other long term (current) drug therapy; Z95.1 Presence of aortocoronary bypass graft; W01.0XXA Fall on same level from slipping, tripping and stumbling without subsequent striking against object, initial encounter; Y92.009 Unspecified place in unspecified non-institutional (private) residence as the place of occurrence of the external cause; Y99.8 Other external cause status
CPT/HCPCS: 36415; 70450; 71010; 72125; 72170; 73502; 80053; 81000; 83735; 85025; 85610; 85730; 93005; 93041; 96374; 96375